=== PATIENT | male | born 1970 | race Caucasian/White ===

== ENCOUNTER → 2016-03-29 | Outpatient (CLI) | payer OTHER ==
[~2016-03-29] MED LIST: DOXA4TAB PO; DPKSR/500 PO; GLC500 PO; HYDR12.56 PO; IBUP-1050 PO; LSN20 PO; LURA1TAB PO; LURA40TA PO; METO50TA16 PO; NRV/10 PO; OMEP40CA41 PO; ONDA4TAB9 PO; OXYC-164 PO; OXYC20TA50 PO; PERCOCET PO
== END | disposition home or self-care (01) ==
LOC: C.RDSM 15:17
PROVIDERS: ATTEND Orthopaedic Surgery Sports Medicine
DX: M25.511 Pain in right shoulder (principal)

== ENCOUNTER → 2016-04-05 | Outpatient (CLI) | payer OTHER ==
--- NOTE | 2016-04-05 19:20 | DIAGNOSTIC IMAGING REPORT ---
MRI THE RIGHT SHOULDER NO CONTRAST CLINICAL HISTORY: Right shoulder pain. History of labral and rotator cuff tear. COMPARISON STUDY: Conventional radiographic study dated 03/29/2016 FINDINGS: Imaging was performed in sagittal coronal and axial planes. There are no findings to indicate occult fracture or bone bruise. There are no findings to indicate rotator cuff tear. There is no tendinous retraction. The bicipital tendon appears intact. There is abnormal signal within the anterior superior glenoid labrum. It is not possible to determine whether this relates to prior surgical repair or a recurrent tear. There are minor degenerative changes within the chromic clavicular joint IMPRESSION: 1. No evidence of full-thickness rotator cuff tear. No evidence of tendinous retraction 2. Normal bicipital tendon 3. Abnormal appearance of the anterior and superior glenoid labrum. It is not possible to determine whether this relates to prior surgical repair or whether this represents a recurrent tear Electronically signed by: Frank Garces M.D. 04/05/2016 7:19 PM Dictated Date/Time: 04/05/2016 7:15 PM
== END | disposition home or self-care (01) ==
LOC: C.MRI 17:30
PROVIDERS: ATTEND Orthopaedic Surgery Sports Medicine
DX: M25.511 Pain in right shoulder (principal)

== ENCOUNTER 2016-06-06 05:16 | Day surgery (SDC) | payer OTHER ==
[2016-05-11 15:24] VITALS: BMI 37.0
--- NOTE | 2016-05-11 16:01 | PAT Medication Instructions ---
Service Date May 11, 2016. Current Home Medication List Amlodipine Besylate (Amlodipine Besylate), 10 MG PO QAM Divalproex Sodium (Depakote Etended-Release), 1,500 MG PO HS Doxazosin Mesylate (Doxazosin Mesylate), 4 MG PO QPM Hydrochlorothiazide (Hctz), 12.5 MG PO QAM Ibuprofen (Advil), 800 MG PO PRN Lisinopril (Lisinopril), 20 MG PO HS Lurasidone Hcl (Latuda), 20 MG PO HS Metformin HCl (Metformin HCl), 500 MG PO BIDM Metoprolol Tartrate (Lopressor) (Lopressor), 50 MG PO BID Omeprazole (Prilosec), 40 MG PO QPM Ondansetron (Ondansetron HCl), 4 MG PO Q8 PRN for Nausea Oxycodone Hcl (Oxycontin), 1 TAB PO BID [Percocet], 10 MG PO 5XDAY Medication Instructions For Your Scheduled Surgery Ibuprofen (Advil), 800 MG PO PRN (patient will check with surgeon for instructions) - Hold the following medications 48 hours prior to surgery: Metformin HCl (Metformin HCl), 500 MG PO BID .- Hold the following medications evening prior to surgery: Lisinopril (Lisinopril), 20 MG PO HS - Hold the following medications the morning of surgery: Hydrochlorothiazide (Hctz), 12.5 MG PO QAM - Take the following medications the morning of surgery with a sip of water: Oxycodone Hcl (Oxycontin), 1 TAB PO BID (can take up to four hours prior to surgery if needed) Percocet 10 MG PO 5XDAY (can take up to four hours prior to surgery if needed ) Metoprolol Tartrate (Lopressor) (Lopressor), 50 MG PO BID Ondansetron (Ondansetron HCl), 4 MG PO Q8 PRN for Nausea (only if needed) Amlodipine Besylate (Amlodipine Besylate), 10 MG PO QAM - Take the following medications as scheduled the night before surgery: Oxycodone Hcl (Oxycontin), 1 TAB PO BID Percocet 10 MG PO 5XDAY Omeprazole (Prilosec), 40 MG PO QPM Metoprolol Tartrate (Lopressor) (Lopressor), 50 MG PO BID Lurasidone Hcl (Latuda), 20 MG PO HS Doxazosin Mesylate (Doxazosin Mesylate), 4 MG PO QPM Divalproex Sodium (Depakote Etended-Release), 1,500 MG PO HS If you have any questions please call us at [phone] or [phone] ( [place]) or [phone]
--- NOTE | 2016-05-11 16:21 | DIAGNOSTIC IMAGING REPORT ---
TWO VIEW CHEST CLINICAL HISTORY: Preoperative examination. FINDINGS: PA and lateral chest radiographs are compared to study dated 05/13/2014. The examination is degraded by large body habitus. The cardiomediastinal silhouette is unremarkable. There are low lung volumes with bibasilar atelectasis. The lungs and pleural spaces are otherwise clear. There is no pneumothorax. The bony thorax appears intact. IMPRESSION: No active disease in the chest. Electronically signed by: Tonio Rodriguez M.D. 05/11/2016 4:20 PM Dictated Date/Time: 05/11/2016 4:19 PM
[2016-05-11 16:29] LABS: BASO % 0.6 %; BASO ABS # 0.04 K/uL (0-0.2); COMPLETE YES; EOS % 2.2 %; HEMATOCRIT 37.1 % (42-52); IG% 0.2 %; LYMPH % 32.2 %; LYMPH ABS # 2.02 K/uL (1.2-3.4); MEAN CELL VOLUME 84.7 fL (80-100); MEAN CORPUSCULAR HEMOGLOBIN 29.2 pg (25-34); MEAN CORPUSCULAR HGB CONC 34.5 g/dl (32-36); MEAN PLATELET VOLUME 10.1 fL (7.4-10.4); MONO % 11.8 %; PLATELET COUNT 189 K/uL (130-400); RED BLOOD COUNT 4.38 M/uL (4.7-6.1); WHITE BLOOD COUNT 6.28 K/uL (4.8-10.8)
[2016-05-11 16:39] LABS: PARTIAL THROMBOPLASTIN RATIO 0.9; PROTHROMBIN TIME (PATIENT) 10.4 SECONDS (9.0-12.0)
[2016-05-11 16:51] LABS: BUN/CREATININE RATIO 15.1 (10-20); CALCIUM 8.4 mg/dl (8.5-10.1); CREATININE 1.1 mg/dl (0.60-1.40); POTASSIUM 4.5 mmol/L (3.5-5.1)
--- NOTE | 2016-05-11 17:11 | HISTORY & PHYSICAL EXAMINATION ---
DATE OF ADMISSION: 06/06/2016 CHIEF COMPLAINT: Right shoulder pain. HISTORY OF PRESENT ILLNESS: Andre is a 45-year-old male patient of Dr. Walter from [facility] with right shoulder pain that has failed conservative management. He admits to pain with any type of use. His pain has been longstanding without any obvious injury. The patient was a heavy laborer powerhouse at one point, now works at a desk job. Rates his pain 4/10, worse at 8:10. He denies numbness or tingling distally. PAST MEDICAL HISTORY: 1. Hypertension. 2. Anxiety. 3. GERD. 4. Obesity. 5. History of kidney stones. PAST SURGICAL HISTORY: 1. Right foot plantar fascial release. 2. Left shoulder arthroscopy x2. 3. Vasectomy. 4. Kidney stone removal. SOCIAL HISTORY: The patient lives at home and lives with his in a safe environment. Denies any alcohol, tobacco or illegal drug use. FAMILY HISTORY: Noncontributory. MEDICATIONS: 1. Mobic 15 mg tab daily. 2. OxyContin 20 mg tab daily. 3. Oxycodone 10 mg tab 4-5 times daily. 4. Hydrochlorothiazide 12.5 mg tab daily. 5. Latuda 20 mg tab at bedtime. 6. Metoprolol 50 mg tab twice daily. 7. Lisinopril 20 mg tab daily. 8. Amlodipine 5 mg tab daily. 9. Omeprazole 40 mg tab daily. 10. Depakote ER 500 mg tab 4 tabs at bedtime. 11. Ativan 1 mg tab as needed for imaging studies. ALLERGIES: HYDROCHLOROTHIAZIDE. REVIEW OF SYSTEMS: The patient denies headache, chest pain, shortness of breath, fevers, chills or night sweats. PHYSICAL EXAMINATION: GENERAL: The patient is alert and oriented x3 male, pleasant, appears his currently stated age, in no acute distress, here today by himself. CARDIAC: Regular rate and rhythm. S1 greater than S2. No murmurs, rubs or gallops. RESPIRATORY: Lungs are clear to auscultation bilaterally all lung guerra. No rales, rhonchi or wheezing. GASTROINTESTINAL: Abdomen is soft, nontender, nondistended. Normoactive bowel sounds all 4 quadrants. SKIN: Exam of the patient's right shoulder does not reveal any erythema, ecchymosis, abrasions, lacerations or skin breakdown. NEUROVASCULAR: The right upper extremity distally pulses +2. Capillary refill under 2 seconds. Good sensation with light touch. Fingers freely mobile. +5 insurance agency manager strength. MUSCULOSKELETAL: The right shoulder forward elevation and adduction 170 degrees, has pain greater than 120 degrees. The patient is able to externally rotate 45 degrees and internal rotation is to his buttock. Provocative testing of the right shoulder reveals a positive Neer, positive [place]una[place], positive cross arm, positive [place]'s, pain with a Jobes test. The patient is tender when palpating along the long head of biceps and also his AC joint. His elbow is atraumatic. IMPRESSION: Right shoulder labral tear, acromioclavicular joint osteoarthritis and long head biceps tendinosis. PLAN: Andre will undergo a right shoulder arthroscopy, labral and rotator cuff repair versus debridement, subacromial decompression, biceps tenotomy, open distal clavicle excision and exam under anesthesia scheduled for 06/06/2016 at the [facility] to be performed by Dr. Castaneda. Andre has a preadmission testing appointment on 05/11/2016 at the [facility] in regards to postoperative pain control. The patient has already obtained PCP clearance through his family provider, Dr. Shanelle Magaña. He will obtain preoperative EKG, CBC, electrolytes, BUN, creatinine, PT/INR. The patient utilizes pain management and reports that they will be in charge of providing him with his postoperative narcotics for pain control which will most likely need to be increased. Andre is going to do physical therapy at [facility] in [place] and order has been provided. He will follow up with Dr. Castaneda 2 weeks after surgery for suture removal and postoperative check. Any other questions or concerns, notify [facility] at [phone].
[~2016-06-06] VITALS: Ht 180.3 cm; Wt 122.6 kg
[~2016-06-06 05:16] MED LIST changes: -LURA1TAB PO; -OXYC-164 PO
[2016-06-06 05:47] VITALS: BP 123/85; PULSE 74; TEMP 36.9; O2SAT 94; Ht 180.3 cm; Wt 122.6 kg
[2016-06-06] MEDS ORDERED: LACTATED RINGER'S 1000ML 500 ML IV ONE (06:00)
[2016-06-06] MEDS ORDERED: LACTATED RINGER'S 1000ML 1,000 ML IV SCH ×2 (06:00→07:00)
[2016-06-06] MEDS ORDERED: CEFAZOLIN 3000 MG/65 ML D5W 65 ML IV SCH (06:00)
[2016-06-06] MEDS ORDERED: ROPIVACAINE 0.5% 5 MG/ML 30 ML VIAL ONE (06:32)
[2016-06-06] MEDS ORDERED: FENTANYL CITRATE INJ 50 MCG/1 ML 2 ML VIAL ONE ×2 (06:36→09:05)
[2016-06-06] MEDS ORDERED: MIDAZOLAM HCL 1 MG/ML 2ML VIAL ONE (06:37)
--- NOTE | 2016-06-06 06:43 | History & Physical Bridge Note ---
H&P Re-Evaluation Bridge Note: I have examined the patient, reviewed the History & Physical and in the interval since the performance of the History & Physical I have noted the following changes of clinical significance: No changes noted
[2016-06-06] MEDS ORDERED: SODIUM CHLORIDE 0.9% PF 50 ML VIAL ONE (06:45)
[2016-06-06] MEDS ORDERED: LIDOCAINE/EPINEPHRINE 1% 20 ML VIAL ONE (06:45)
[2016-06-06] MEDS ORDERED: BUPIVACAINE 0.5 % 5 MG/1 ML MPF 30ML VIAL ONE (06:46)
--- NOTE | 2016-06-06 08:36 | [facility] Post Operative Brief Note ---
Immediate Operative Summary Operative Date Jun 06, 2016. Pre-Operative Diagnosis Right shoulder labral tear, acromioclavicular joint osteoarthritis, and long head biceps tendinosis. Post-Operative Diagnosis Right shoulder labral tear, acromioclavicular joint osteoarthritis and long head biceps tendinosis Procedure(s) Performed Right Shoulder Arthroscopy, Labral/Rotator Cuff Debridement, Subacromial Decompression, Biceps Tenotomy, Open Distal Clavicle Excision Surgeon Dr. Alvarez Castaneda Roller Mill Tender Surgeon(s) Jona Wood - fellow Estimated Blood Loss 5 Findings same Specimens right distal clavicle Drains none Anesthesia general, block Complication(s) None Disposition Recovery Room / PACU
[2016-06-06] MEDS ORDERED: SODIUM CHLORIDE 0.9% 1000ML 1,000 ML IV SCH (08:39)
--- NOTE | 2016-06-06 08:39 | Discharge Instructions ---
Discharge Instructions Date of Service Jun 06, 2016. Admission Reason for Admission: Right Shoulder Labral Tear, Acromioclavicular Join Discharge Discharge Diagnosis / Problem: s/p Right shoulder arthroscopy, rotator cuff and labral debridement Discharge Goals Goal(s): Decrease discomfort, Improve function, Increase independence Activity Recommendations Activity Limitations: as noted below Lifting Limitations: gradually increase as tolerated Exercise/Sports Limitations: none May Resume Sexual Activity: when tolerated Shower/Bathe: keep incision dry Driving or Machine Use: when cleared by Dr. Castaneda . Instructions / Follow-Up Instructions / Follow-Up DIET: * Resume previous diet. MEDICATIONS: * Please take your prescriptions as instructed at your pre-op appointment and/ or see medication discharge instructions listed above. * If concerns develop, call your physician's office at . SPECIAL CARE INSTRUCTIONS: * Ice/Elevate as instructed. * Keep dressing clean, dry, intact. * Your surgical extremity may be discolored due to prepping agents used on the skin. A bluish-green tint is a normal variant and should not cause alarm. Call your doctor at [phone] if: * Temperature above 101 degrees * Pain not relieved by pain medicine ordered * There is increased drainage or redness from any incision * You have any unanswered questions, problems or concerns. FOLLOW UP VISIT: * If not already scheduled, please call the office at to schedule a follow-up appointment. Current Hospital Diet Patient's current hospital diet: Discharge Diet Recommended Diet: Regular Diet Procedures Procedures Performed: Right Shoulder Arthroscopy, Labral/Rotator Cuff Debridement, Subacromial Decompression, Biceps Tenotomy, Open Distal Clavicle Excision Pending Studies Studies pending at discharge: yes List of pending studies: right distal clavicle specimen Medical Emergencies . Who to Call and When: Medical Emergencies: If at any time you feel your situation is an emergency, please call [phone] immediately. . Non-Emergent Contact Non-Emergency issues call your: Primary Care Provider . "Provider Documentation" section prepared by Zeyad Muller. VTE Core Measure Inpt VTE Proph given/why not?: Emily Zamarripa PA Drug Monitoring Program Search Results: no issues identified
[2016-06-06] MEDS ORDERED: OXYCODONE/ACETAMINOPHEN 5-325 TAB PO PRN (08:45)
[2016-06-06] MEDS ORDERED: MoRPHine SULFATE 4 MG/ML 1 ML CARP\\VIAL IV PRN (08:45)
[2016-06-06] MEDS ORDERED: ONDANSETRON INJ 2 MG/ML 2 ML VIAL IV PRN ×2 (08:45→09:15)
[2016-06-06] MEDS ORDERED: METOCLOPRAMIDE HCL INJ 5 MG/ML 2 ML VIAL IV PRN (08:45)
[2016-06-06] MEDS ORDERED: DEXAMETHASONE SOD INJ 4 MG/ML VIAL ONE (09:00)
[2016-06-06] MEDS ORDERED: NEOSTIGMINE METHYLSULFATE 5 MG/5 ML SYR ONE (09:00)
[2016-06-06] MEDS ORDERED: ROCURONIUM BROMIDE 10 MG/ML 5 ML VIAL ONE (09:00)
[2016-06-06] MEDS ORDERED: GLYCOPYRROLATE INJ 0.2 MG/ML VIAL ONE (09:00)
[2016-06-06] MEDS ORDERED: ONDANSETRON INJ 2 MG/ML 2 ML VIAL ONE (09:00)
[2016-06-06] MEDS ORDERED: PROPOFOL IV EMULSION 10 MG/ML 20 ML VIAL IV ONE (09:00)
[2016-06-06] MEDS ORDERED: FENTANYL CITRATE INJ 50 MCG/1 ML 2 ML VIAL IV PRN (09:15)
[2016-06-06] MEDS ORDERED: ATROPINE SULFATE 0.1 MG/ML 5ML SYR IV PRN (09:15)
[2016-06-06] MEDS ORDERED: EpHEDrine SULFATE INJ 50 MG/ML AMP IV PRN (09:15)
--- NOTE | 2016-06-06 09:30 | [facility] Operative Report ---
Operative Report Operative Date Jun 06, 2016. Pre-Operative Diagnosis Right shoulder labral tear, acromioclavicular joint osteoarthritis, and long head biceps tendinosis. Post-Operative Diagnosis Same + Rotator cuff partial articular sided tear & Impingement. Procedure(s) Performed 1) Right shoulder arthroscopy, extensive debridement: labrum (SLAP, Anterior & posterior) and rotator cuff. 2) Open distal clavicle excision. 3) Arthroscopic subacromial decompression. 4) Long head of the biceps tenotomy. 5) Exam Under Anesthesia. Surgeon Dr. Alvarez Castaneda Remote Broadcast Engineer Surgeon(s) Jona Wood - fellow Estimated Blood Loss 5ML Findings The Right shoulder was then examined under anesthesia and it exhibited: Forward flexion and abduction to 170; external rotation 95; internal rotation 60. There was no noted instability. Posterior and anterior translation was 1+ and they had no sulcus sign and was symmetric to their other side. The diagnostic arthroscopy commenced with the following findings: 1. The biceps anchor showed evidence of a SLAP tear, type I. There was a labral sling around the biceps posteriorly. With traction on the biceps there was movement of the superior and anterior labrum. 2. The anterior labrum showed fraying from 1:00 to 3:00 position. 3. The inferior labrum was intact. 4. The inferior pouch showed no loose bodies. 5. The posterior labrum had fraying from 10:00 to 11:00. 6. The articular surface of the glenoid was intact. 7. The articular surface of humeral head was intact. 8. The long Head of the Biceps was intact, again with traction on the biceps there was movement of the superior and anterior labrum. 9. The Subscapularis tendon was intact. 10. The Supraspinatus tendon had partial thickness articular sided fraying, the footprint was otherwise intact. 11. The Infraspinatus and Teres Minor were intact. 12. The Subacromial space showed some bursitis and small bony spur. 13. AC jt showed degenerative changes the distal end of the clavicle. Fluids 1200 Specimens right distal clavicle Drains none Anesthesia general, interscalene nerve block Complication(s) None Disposition Recovery Room / PACU Indications This is a pleasant 45-year-old male who has been having long-standing right shoulder pain that has failed conservative management. They have MRI and clinical findings suggestive of labral tears, impingement, and AC joint OA. After a lengthy discussion regarding their options of conservative versus operative management, they have elected to proceed with surgery. The risks of surgery were discussed and include but not limited to: Infection, bleeding, nerve damage, continued pain, progression of arthritis, stiffness, decreased level of activity, and deep vein thrombosis. The patient understood all of their options and the risks of surgery and would like to proceed. The informed consent was signed. Description of Procedure The patient was taken to the operating room and following administration of her interscalene nerve block and general anesthetic, a multidisciplinary time-out was performed identifying my initials on the right shoulder as the correct and operative limb. The patient was then placed in beach chair position with all of their bony prominences well-padded. They were then prepped and draped in the usual orthopedic sterile fashion. All of the bony landmarks were marked as well as the planned incisions. The planned incisions were injected with a 50:50 mixture of 0.5% Marcaine plain and 1% Lidocaine with Epinephrine for a total of 8 cc. Then using a spinal needle which was placed intra-articularly into the glenohumeral joint and insufflated to 35 cc and there was noted appropriate back flow, an additional 15 cc were placed. The standard posterior portal was made with an 11-blade. Trocar was introduced into the glenohumeral joint in the standard fashion. Using a spinal needle, the anterior portal was placed lateral to the coracoid under direct visualization between the Long Head of the Biceps and Subscapularis. A 7mm cannula was then placed. The intra-articular portion of shoulder was addressed first with debriding any fraying from the labrum, subscapularis and supraspinatus tear. These were probed and found to be intact. The arthroscope had also been removed from the posterior portal and placed anteriorly for better posterior visualization. Additional debridement of the posterior labrum and rotator cuff was also performed again back to a stable rim. He was felt that the biceps traction on the labral complex would be a source of pain and a biceps tenotomy was performed. The arthroscope was then placed subacromially. There was bursitis noted. A lateral portal was created under direct visualization with a spinal needle. Once the bursitis was removed, the bursal side of the rotator cuff was intact. There was a small bony spur. Using the 5 mm barrel-shaped bur, a 5 mm subacromial decompression was performed. All of the instruments were removed. Our attention was drawn to the AC joint and making a 3 cm incision in-line with the anterior portal incision was made and carried down to the Superior AC joint ligament. A longitudinal incision was made in-line with the fibers of the superior AC joint ligament. The posterior and anterior aspect of the clavicle was exposed and using a sagittal saw the distal 7 mm was removed. A rasp was used to smooth out the edges. The wound was copiously irrigated. Bone wax was placed along the exposed bone. There was adequate space. The Superior AC joint ligament was closed with 0 Vicryl. The subcutaneous layer was closed with 3-0 Vicryl. The skin was closed with a running subcuticular stitch using 3-0 Prolene. Steri strips were placed over top. The portal sites were closed with 3-0 Prolene in a standard fashion. Xeroform was placed overtop followed by 4 x 4's, ABDs, and foam tape. The patient was placed in a sling. The sponge and needle counts were correct. POSTOPERATIVE INSTRUCTIONS: The patient will follow-up with physical therapy in two days. The patient will wear sling out in public and for comfort only. The patient will follow-up with me in 10 to 15 days. I attest to the content of the Intraoperative Record and any orders documented therein. Any exceptions are noted below.
[2016-06-06 10:15] VITALS: BP 121/67; PULSE 76; TEMP 36.1; O2SAT 93
--- NOTE | 2016-06-06 10:58 | Anesthesiology Progress Note ---
Anesthesia Post Op Note Date & Time Jun 06, 2016 at 10:58 Vital Signs Pain Intensity: 0 Vital Signs Past 12 Hours Date Time Temp Pulse Resp B/P Pulse Ox O2 Delivery O2 Flow Rate FiO2 06/06/16 10:15 36.1 76 26 121/67 93 Nasal Cannula 3 06/06/16 10:05 68 25 105/68 91 Nasal Cannula 3 06/06/16 09:55 65 21 100/60 99 Mask 10 06/06/16 09:45 61 25 105/65 99 Mask 10 06/06/16 09:38 36.0 58 16 110/73 99 Mask 10 06/06/16 05:47 36.9 74 18 123/85 94 Room Air Notes Mental Status: alert / awake / arousable, participated in evaluation Pt Amnestic to Procedure: Yes Nausea / Vomiting: adequately controlled Pain: adequately controlled Airway Patency, RR, SpO2: stable & adequate BP & HR: stable & adequate Hydration State: stable & adequate Anesthetic Complications: no major complications apparent
== END 2016-06-06 11:50 | disposition home or self-care (01) ==
LOC: C.ACU 05:16
PROVIDERS: ATTEND Orthopaedic Surgery Sports Medicine
DX: M75.111 Incomplete rotator cuff tear or rupture of right shoulder, not specified as traumatic (principal); S46.801A Unspecified injury of other muscles, fascia and tendons at shoulder and upper arm level, right arm, initial encounter; M19.011 Primary osteoarthritis, right shoulder; M77.9 Enthesopathy, unspecified; Z79.899 Other long term (current) drug therapy; Z79.84 Long term (current) use of oral hypoglycemic drugs; X58.XXXA Exposure to other specified factors, initial encounter

== ENCOUNTER 2017-04-02 18:37 | Emergency (ER) | payer OTHER ==
[~2017-04-02] VITALS: Ht 180.3 cm; Wt 120.4 kg
[2017-04-02 19:25] VITALS: Ht 180.3 cm; Wt 120.4 kg
[2017-04-02] MEDS ORDERED: DiphenhydrAMINE HCL 50 MG/ML VIAL IV STA (20:30)
[2017-04-02] MEDS ORDERED: DEXAMETHASONE SOD INJ 4 MG/ML VIAL IV STA (20:30)
[2017-04-02] MEDS ORDERED: KETOROLAC TROMETHAMINE 30 MG/ML VIAL IV STA (20:30)
[2017-04-02] MEDS ORDERED: PROCHLORPERAZINE 5 MG/ML 2 ML VIAL IV STA (20:30)
[2017-04-02] MEDS ORDERED: SODIUM CHLORIDE 0.9% 1000ML 1,000 ML IV STA (20:30)
[2017-04-02] MEDS ORDERED: HYDROmorphone INJ 1 MG/ML SYR IV STA ×2 (20:36→22:51)
[2017-04-02 21:16] LABS: BASO % 0.4 %; BASO ABS # 0.03 K/uL (0-0.2); EOS % 1.5 %; HEMATOCRIT 39.8 % (42-52); HEMOGLOBIN 13.7 g/dL (14.0-18.0); IG# 0.02 K/uL (0.00-0.02); LYMPH % 32.3 %; LYMPH ABS # 2.18 K/uL (1.2-3.4); MEAN CELL VOLUME 84.9 fL (80-100); MEAN CORPUSCULAR HEMOGLOBIN 29.2 pg (25-34); MEAN CORPUSCULAR HGB CONC 34.4 g/dl (32-36); MEAN PLATELET VOLUME 10.1 fL (7.4-10.4); MONO % 12.3 %; MONO ABS # 0.83 K/uL (0.11-0.59); NEUT % 53.2 %; NEUT ABS # 3.58 K/uL (1.4-6.5); PLATELET COUNT 179 K/uL (130-400); RED CELL DISTRIBUTION WIDTH CV 13.2 % (11.5-14.5); RED CELL DISTRIBUTION WIDTH SD 40.7 fL (36.4-46.3); WHITE BLOOD COUNT 6.74 K/uL (4.8-10.8)
[2017-04-02 21:36] LABS: CALCIUM 8.8 mg/dl (8.5-10.1); CREATININE 0.92 mg/dl (0.60-1.40)
--- NOTE | 2017-04-02 21:43 | DIAGNOSTIC IMAGING REPORT ---
CT HEAD WITHOUT CONTRAST (CT) CLINICAL HISTORY: Headache, hypertension COMPARISON STUDY: 12/16/2013 TECHNIQUE: Axial CT of the brain is performed from the vertex to the skull base. IV contrast was not administered for this examination. A dose lowering technique was utilized adhering to the principles of ALARA. CT DOSE: 614.27 mGy.cm FINDINGS: No intra or extra-axial mass lesions are visualized. There is no CT evidence of acute cortical infarction. There is no evidence of midline shift. There is no acute hemorrhage. No calvarial fractures are visualized. There is no evidence of pathologic ventricular dilatation. There is no evidence of acute sinusitis IMPRESSION: No acute intracranial findings Electronically signed by: Frank Garces M.D. 04/02/2017 9:42 PM Dictated Date/Time: 04/02/2017 9:41 PM
[2017-04-02] MEDS ORDERED: LISINOPRIL 20 MG TAB PO STA (22:51)
[2017-04-02] MEDS ORDERED: METOPROLOL TARTRATE 50 MG TAB PO STA (22:51)
[2017-04-02] MEDS ORDERED: CRD4 PO (23:32)
[2017-04-03 00:35] VITALS: BP 160/90; PULSE 60; TEMP 36.5; O2SAT 96
--- NOTE | 2017-04-03 03:05 | EMERGENCY ROOM VISIT NOTE ---
History Report prepared by Coco: Ezequiel Edgar Under the Supervision of: Dr. Mina Emanuel M.D. First contact with patient: 20:19 Chief Complaint: HEADACHE Stated Complaint: SEVERE HEADACHE, NECK STIFFNESS, LIGHT SENSITIVITY History of Present Illness The patient is a 46 year old male who presents to the Emergency Room with complaints of a constant headache that began yesterday. He rates his discomfort as an 8/10 in severity. The patient states that his headache is worsened with light and relieved with laying down. The patient states that the pain is located in his entire head. He reports that he has also been experiencing neck stiffness and nausea since yesterday. He states that he took his blood pressure last night, which was 187/96. The patient states that he took extra Lisinopril without any relief. The patient states that he has a history of headaches, which he sees a neurologist for. He states that she tried to give him migraine medications and had a spinal tap done. The patient states that the spinal tap in 2016 was normal. He reports he also has a history of three shoulder surgeries. The patient denies trauma, LOC, fevers, chills, diaphoresis, visual changes, chest pain, breathing difficulties, vomiting, abdominal pain, back pain , melena, hematochezia, urinary symptoms, numbness, weakness, lymphadenopathy, rash, or other complaints. Source of History: patient Onset: yesterday Position: head Symptom Intensity: 8/10 Quality: ache Timing: constant Modifying Factors (Worsening): other (light) Modifying Factors (Relieving): other (laying down) Associated Symptoms: + neck pain (stiffness), + nausea Review of Systems See HPI for pertinent positives and negatives. A total of ten systems were reviewed and were otherwise negative. Past Medical & Surgical Medical Problems: (1) Anxiety disorder (2) Bipol I, Most Recent Episode (Or Current) Unspecified (3) Bipolar disorder (4) Diabetes (5) GERD (gastroesophageal reflux disease) (6) HTN (hypertension) Surgical Problems: (1) Status post labral repair of shoulder Family History Cancer Gallbladder disease Hypertension Kidney disease Kidney stones Social History Smoking Status: Never Smoker Alcohol Use: none Marital Status: Housing Status: lives with family Occupation Status: employed Current/Historical Medications Scheduled Divalproex Sodium (Depakote Etended-Release), 1,500 MG PO HS Doxazosin Mesylate (Doxazosin Mesylate), 4 MG PO QPM Lisinopril (Lisinopril), 20 MG PO HS Lurasidone Hcl (Latuda), 20 MG PO HS Metformin HCl (Metformin HCl), 500 MG PO BIDM Metoprolol Tartrate (Lopressor) (Lopressor), 50 MG PO BID Omeprazole (Prilosec), 40 MG PO QPM Oxycodone Hcl (Oxycontin), 1 TAB PO BID Scheduled PRN Ondansetron (Ondansetron HCl), 4 MG PO Q8 PRN for Nausea Allergies Coded Allergies: Bupropion (Verified Allergy, Unknown, headache, 04/02/17) Gemfibrozil (Verified Allergy, Unknown, decreased kidney function, muscle aches, 04/02/17) pt Physical Exam Vital Signs Date Time Temp Pulse Resp B/P (MAP) Pulse Ox O2 Delivery O2 Flow Rate FiO2 04/03/17 00:35 36.5 60 16 160/90 96 Room Air 04/02/17 23:40 36.6 65 16 171/113 96 Room Air 04/02/17 22:41 61 175/113 96 Room Air 04/02/17 22:02 67 16 175/104 97 Room Air 04/02/17 19:25 36.8 92 20 185/93 97 Room Air Physical Exam GENERAL: Awake, alert, uncomfortable appearing, no distress HENT: Normocephalic, atraumatic. TM's normal. Oropharynx unremarkable. EYES: PERRL. EOMI. Normal conjunctiva. Sclera non-icteric. NECK: Supple. No nuchal rigidity. FROM. No JVD or bruit. RESPIRATORY: CTA CARDIAC: RRR. No murmur. ABDOMEN: Soft, non distended. No tenderness to palpation. No rebound or guarding. No masses. RECTAL: Deferred. MUSCULOSKELETAL: Unremarkable. Trace lower extremity edema. No discoloration. Gross motor strength symmetric. NEURO: Cranial nerves 2-12 grossly intact. Normal sensorium. No sensory or motor deficits noted. Speech normal. No pronator drift. SKIN: No rash or jaundice noted. LYMPH: No adenopathy. Medical Decision & Procedures ER Provider Diagnostic Interpretation: Radiology results as stated below per my review and radiologist interpretation CT HEAD WITHOUT CONTRAST (CT) CLINICAL HISTORY: Headache, hypertension COMPARISON STUDY: 12/16/2013 TECHNIQUE: Axial CT of the brain is performed from the vertex to the skull base. IV contrast was not administered for this examination. A dose lowering technique was utilized adhering to the principles of ALARA. CT DOSE: 614.27 mGy.cm FINDINGS: No intra or extra-axial mass lesions are visualized. There is no CT evidence of acute cortical infarction. There is no evidence of midline shift. There is no acute hemorrhage. No calvarial fractures are visualized. There is no evidence of pathologic ventricular dilatation. There is no evidence of acute sinusitis IMPRESSION: No acute intracranial findings Electronically signed by: Frank Garces M.D. 04/02/2017 9:42 PM Dictated Date/Time: 04/02/2017 9:41 PM Laboratory Results 04/02/17 21:06 Red Blood Count 4.69, Mean Corpuscular Volume 84.9, Mean Corpuscular Hemoglobin 29.2, Mean Corpuscular Hemoglobin Concent 34.4, Mean Platelet Volume 10.1, Neutrophils (%) (Auto) 53.2, Lymphocytes (%) (Auto) 32.3, Monocytes (%) (Auto) 12.3, Eosinophils (%) (Auto) 1.5, Basophils (%) (Auto) 0.4, Neutrophils # (Auto ) 3.58, Lymphocytes # (Auto) 2.18, Monocytes # (Auto) 0.83, Eosinophils # (Auto ) 0.10, Basophils # (Auto) 0.03 04/02/17 21:06 Test 04/02/17 21:06 White Blood Count 6.74 K/uL (4.8-10.8) Red Blood Count 4.69 M/uL (4.7-6.1) Hemoglobin 13.7 g/dL (14.0-18.0) Hematocrit 39.8 % (42-52) Mean Corpuscular Volume 84.9 fL (80-100) Mean Corpuscular Hemoglobin 29.2 pg (25-34) Mean Corpuscular Hemoglobin Concent 34.4 g/dl (32-36) Platelet Count 179 K/uL (130-400) Mean Platelet Volume 10.1 fL (7.4-10.4) Neutrophils (%) (Auto) 53.2 % Lymphocytes (%) (Auto) 32.3 % Monocytes (%) (Auto) 12.3 % Eosinophils (%) (Auto) 1.5 % Basophils (%) (Auto) 0.4 % Neutrophils # (Auto) 3.58 K/uL (1.4-6.5) Lymphocytes # (Auto) 2.18 K/uL (1.2-3.4) Monocytes # (Auto) 0.83 K/uL (0.11-0.59) Eosinophils # (Auto) 0.10 K/uL (0-0.5) Basophils # (Auto) 0.03 K/uL (0-0.2) RDW Standard Deviation 40.7 fL (36.4-46.3) RDW Coefficient of Variation 13.2 % (11.5-14.5) Immature Granulocyte % (Auto) 0.3 % Immature Granulocyte # (Auto) 0.02 K/uL (0.00-0.02) Anion Gap 8.0 mmol/L (3-11) Est Creatinine Clear Calc Drug Dose 131.0 ml/min Estimated GFR () 114.4 Estimated GFR (Non- 98.7 BUN/Creatinine Ratio 11.6 (10-20) Calcium Level 8.8 mg/dl (8.5-10.1) Lyme Disease IgG Antibody NEG (NEG) Lyme Disease IgM Antibody NEG (NEG) Laboratory results reviewed by me Medications Administered Medications (Trade) Dose Ordered Sig/Muna Route Start Time Stop Time Status Last Admin Dose Admin Prochlorperazine Edisylate (Compazine Inj) 10 mg NOW STAT IV 04/02/17 20:30 04/02/17 20:34 DC 04/02/17 21:06 10 MG Sodium Chloride 1,000 ml @ 999 mls/hr Q1H1M STAT IV 04/02/17 20:30 04/02/17 21:30 DC 04/02/17 21:05 999 MLS/HR Ketorolac Tromethamine (Toradol Inj) 10 mg NOW STAT IV 04/02/17 20:30 04/02/17 20:34 DC 04/02/17 21:04 10 MG Dexamethasone Sodium Phosphate (Decadron Inj) 10 mg NOW STAT IV 04/02/17 20:30 04/02/17 20:34 DC 04/02/17 21:03 10 MG Diphenhydramine HCl (Benadryl Inj) 25 mg NOW STAT IV 04/02/17 20:30 04/02/17 20:34 DC 04/02/17 21:04 25 MG Hydromorphone HCl (Dilaudid Inj) 1 mg NOW STAT IV 04/02/17 20:36 04/02/17 20:37 DC 04/02/17 21:11 1 MG Hydromorphone HCl (Dilaudid Inj) 1 mg NOW STAT IV 04/02/17 22:51 04/02/17 22:53 DC 04/02/17 23:00 1 MG Metoprolol Tartrate (Lopressor Tab) 50 mg NOW STAT PO 04/02/17 22:51 04/02/17 22:53 DC 04/02/17 23:00 50 MG Lisinopril (Zestril Tab) 20 mg NOW STAT PO 04/02/17 22:51 04/02/17 22:53 DC 04/02/17 23:21 20 MG ECG Indication: other (headache) Rate (beats per minute): 68 Rhythm: normal sinus Findings: no acute ischemic change, no ectopy ED Course 2027: The patient was evaluated in room B10. A complete history and physical exam was performed. 2030: Ordered Benadryl Injection 25 mg IV, Decadron Injection 10 mg IV, Toradol Injection 10 mg IV, Sodium Chloride 1000 ml @ 999 mls/hr IV, Compazine Injection 10 mg IV. 2035: Ordered Dilaudid Injection 1 mg IV. 2250: Ordered Lisinopril 20 mg PO, Lopressor Tab 50 mg PO, Dilaudid Injection 1 mg IV. 2253: I reevaluated the patient and he states that it feels as if his migraine was coming back. I ordered blood pressure medication since he is due for his daily dose. 0022: I reevaluated the patient. Discussed results and discharge instructions: He verbalized understanding and agreement. The patient is ready for discharge. Medical Decision Triage Nursing notes reviewed. The patient's presentation and history were concerning for headache. Etiologies such as migraine, tumor, headache, sinus thrombosis, temporal arteritis, sinusitis, CVA, ICH, SAH, infection, hypertensive crisis, as well as others were entertained. The patient was evaluated. He had non-focal neurologic examination. He has a history of headaches. His blood pressure was elevated. This was monitored. The patient had an unremarkable workup regarding his labs and imaging. He was treated with the above medications and was feeling better. His blood pressure was still elevated and I discussed his evening medications. He was overdue for them. He was given his metoprolol and lisinopril. The patient notes he is not currently taking Norvasc. That was stopped several months ago due to his other psychiatric medications. He was given a second dose of pain medication. He felt much better. I repeated his blood pressure and it had him down. He was still hypertensive. I asked the patient to monitor his blood pressure so he could follow closely with his primary physician. He felt comfortable. I do not suspect a hypertensive crisis. I believe he was having pain and this was causing his blood pressure to be elevated and he was also overdue for his dosing. By the evaluation outlined above other emergent etiologies such as those listed in the differential, as well as others, were deemed relatively unlikely. The patient was educated about the findings as listed above. All questions were answered and the patient was pleased with the treatment. Return instructions were outlined and the patient was discharged in stable condition. The patient was referred to his PCP for follow-up for a recheck of the current condition. [place] Drug Monitoring Program Search Results: patient reviewed within database, see additional documentation Drug Monitoring Findings: On March 06, the patient received 120 tablets of 20 mg Oxycodone. Medication Reconcilliation Current Medication List: was personally reviewed by me Blood Pressure Screening Patient's blood pressure: Elevated blood pressure Blood pressure disposition: Referred to PCP Impression Primary Impression: Headache Additional Impression: HTN (hypertension) Scribe Attestation The scribe's documentation has been prepared under my direction and personally reviewed by me in its entirety. I confirm that the note above accurately reflects all work, treatment, procedures, and medical decision making performed by me. Departure Information Dispostion Home / Self-Care Referrals Shanelle Magaña M.D. (PCP) Patient Instructions My [facility] Additional Instructions HEADACHE INSTRUCTIONS: DO NOT drive, drink alcohol, operate machinery, or perform dangerous activities today. You were given medications in the ER that can affect your ability to safely function or operate a vehicle. Rest today in a quiet, peaceful, dark environment and get a full 8-10 hrs of sleep tonight. Avoid loud noises, smoke/smoking, alcohol, bright lights, stress, or physical exertion today to minimize the chance the headache may return. Continue current medications. Ibuprofen(Motrin, Advil) may be used for fever or pain. Use 600mg every six hours as needed. Take with food. Avoid using more than 2400mg in a 24 hour period. Do not use 2400mg per day for more than three consecutive days without physician direction. Prolonged inappropriate use can lead to stomach upset or ulcers. (AND/OR) Acetaminophen(Tylenol) may be used for fever or pain. Use 1000mg every six hours as needed. Avoid using more than 4000mg in a 24 hour period. Return to the ER for passing out, worsening headache, vision problems, neck stiffness/pain, fevers, vomiting, worsening of your condition, or as needed. Follow up with your primary physician in 2-3 days for a recheck of your current condition and a check of your blood pressure. Problem Qualifiers
== END 2017-04-03 00:35 | disposition home or self-care (01) ==
LOC: C.EDB 18:44
DX: R51 Headache (principal); I10 Essential (primary) hypertension; E11.9 Type 2 diabetes mellitus without complications; F41.9 Anxiety disorder, unspecified; F31.9 Bipolar disorder, unspecified; K21.9 Gastro-esophageal reflux disease without esophagitis; Z79.84 Long term (current) use of oral hypoglycemic drugs; Z82.49 Family history of ischemic heart disease and other diseases of the circulatory system; Z84.1 Family history of disorders of kidney and ureter

== ENCOUNTER → 2017-04-19 | Outpatient (CLI) | payer OTHER ==
[~2017-04-19] MED LIST changes: -HYDR12.56 PO; -IBUP-1050 PO; -NRV/10 PO; -PERCOCET PO
== END | disposition home or self-care (01) ==
LOC: C.RDSM 15:00
PROVIDERS: ATTEND Orthopaedic Surgery Sports Medicine
DX: S49.90XA Unspecified injury of shoulder and upper arm, unspecified arm, initial encounter (principal); X58.XXXA Exposure to other specified factors, initial encounter

== ENCOUNTER 2017-04-22 17:18 | Emergency (ER) | payer OTHER ==
[~2017-04-22] VITALS: Ht 181.6 cm; Wt 128.5 kg
[2017-04-22 17:20] VITALS: TEMP 36.7; Ht 181.6 cm; Wt 128.5 kg
--- NOTE | 2017-04-22 18:27 | EMERGENCY ROOM VISIT NOTE ---
History Report prepared by Coco: Elian Markham Under the Supervision of: Stephanie FarahO. First contact with patient: 17:53 Chief Complaint: LEG PAIN,LEG INJURY Stated Complaint: LOWER LEG/ANKLE SWELLING/PAIN, HEADACHE History of Present Illness The patient is a 46 year old male who presents to the Emergency Room with complaints of bilateral lower extremity pain that began two days ago. He rates his pain a 7/10 in severity. He has a past medical history of hypertension. The patient was placed onto Amlodipine 13 days ago and had his Lisinopril dose doubled as well. A couple of days ago, the patient began to have bilateral leg pain. He noticed that his legs began to swell yesterday, worse than his baseline , as well as having an associated headache. His pain is exacerbated with movement. He denies any fevers, chest pain, shortness of breath, palpitations, nausea, vomiting, or diarrhea. He is also taking Metoprolol as well. Patient denies any prior history of DVTs. No recent trauma or injury. Source of History: patient Onset: two days ago Position: leg (bilateral) Symptom Intensity: 7/10 Quality: ache Timing: constant Modifying Factors (Worsening): movement Associated Symptoms: + headache, No fevers, No chest pain, No SOB, No nausea , No vomiting, No diarrhea Note: He is experiencing bilateral leg swelling as well. Review of Systems See HPI for pertinent positives & negatives. A total of 10 systems reviewed and were otherwise negative. Past Medical & Surgical Medical Problems: (1) Anxiety disorder (2) Bipol I, Most Recent Episode (Or Current) Unspecified (3) Bipolar disorder (4) Diabetes (5) GERD (gastroesophageal reflux disease) (6) HTN (hypertension) Surgical Problems: (1) Status post labral repair of shoulder Family History Cancer Gallbladder disease Hypertension Kidney disease Kidney stones Social History Smoking Status: Never Smoker Alcohol Use: none Marital Status: Housing Status: lives with family Occupation Status: employed Current/Historical Medications Scheduled Divalproex Sodium (Depakote Etended-Release), 1,500 MG PO HS Doxazosin Mesylate (Doxazosin Mesylate), 4 MG PO QPM Lisinopril (Lisinopril), 20 MG PO HS Lurasidone Hcl (Latuda), 20 MG PO HS Metformin HCl (Metformin HCl), 500 MG PO BIDM Metoprolol Tartrate (Lopressor) (Lopressor), 50 MG PO BID Omeprazole (Prilosec), 40 MG PO QPM Oxycodone Hcl (Oxycontin), 1 TAB PO BID Scheduled PRN Ondansetron (Ondansetron HCl), 4 MG PO Q8 PRN for Nausea Allergies Coded Allergies: Bupropion (Verified Allergy, Unknown, headache, 04/22/17) Gemfibrozil (Verified Allergy, Unknown, decreased kidney function, muscle aches, 04/22/17) pt Physical Exam Vital Signs Date Time Temp Pulse Resp B/P (MAP) Pulse Ox O2 Delivery O2 Flow Rate FiO2 04/22/17 20:43 76 20 156/96 96 04/22/17 19:53 89 18 155/115 98 Room Air 04/22/17 17:20 36.7 103 18 194/93 98 Room Air Physical Exam GENERAL: alert, well appearing, well nourished, no distress, non-toxic, obese EYE EXAM: normal conjunctiva, PERRL and EOM's grossly intact OROPHARYNX: no exudate, no erythema, lips, buccal mucosa, and tongue normal and mucous membranes are moist NECK: supple, no nuchal rigidity, no adenopathy, non-tender LUNGS: Clear to auscultation. Normal chest wall mechanics HEART: no murmurs, S1 normal and S2 normal ABDOMEN: abdomen soft, non-tender, normo-active bowel sounds, no masses, no rebound or guarding. BACK: Back is symmetrical on inspection and there is no deformity, no midline tenderness, no CVA tenderness. SKIN: no rashes and no bruising UPPER EXTREMITIES: upper extremities are grossly normal. LOWER EXTREMITIES: 1+ edema bilaterally. No joint effusion. No rashes or sores. Normal pulses bilateral. NEURO EXAM: Normal sensorium, cranial nerves II-XII grossly intact, normal speech, no gross weakness of arms, no gross weakness of legs. Medical Decision & Procedures Laboratory Results 04/22/17 18:30 Red Blood Count 4.59, Mean Corpuscular Volume 85.2, Mean Corpuscular Hemoglobin 29.4, Mean Corpuscular Hemoglobin Concent 34.5, Mean Platelet Volume 9.7, Neutrophils (%) (Auto) 46.4, Lymphocytes (%) (Auto) 35.4, Monocytes (%) (Auto) 13.7, Eosinophils (%) (Auto) 3.7, Basophils (%) (Auto) 0.6, Neutrophils # (Auto ) 2.24, Lymphocytes # (Auto) 1.71, Monocytes # (Auto) 0.66, Eosinophils # (Auto ) 0.18, Basophils # (Auto) 0.03 04/22/17 18:30 Test 04/22/17 18:30 White Blood Count 4.83 K/uL (4.8-10.8) Red Blood Count 4.59 M/uL (4.7-6.1) Hemoglobin 13.5 g/dL (14.0-18.0) Hematocrit 39.1 % (42-52) Mean Corpuscular Volume 85.2 fL (80-100) Mean Corpuscular Hemoglobin 29.4 pg (25-34) Mean Corpuscular Hemoglobin Concent 34.5 g/dl (32-36) Platelet Count 197 K/uL (130-400) Mean Platelet Volume 9.7 fL (7.4-10.4) Neutrophils (%) (Auto) 46.4 % Lymphocytes (%) (Auto) 35.4 % Monocytes (%) (Auto) 13.7 % Eosinophils (%) (Auto) 3.7 % Basophils (%) (Auto) 0.6 % Neutrophils # (Auto) 2.24 K/uL (1.4-6.5) Lymphocytes # (Auto) 1.71 K/uL (1.2-3.4) Monocytes # (Auto) 0.66 K/uL (0.11-0.59) Eosinophils # (Auto) 0.18 K/uL (0-0.5) Basophils # (Auto) 0.03 K/uL (0-0.2) RDW Standard Deviation 40.1 fL (36.4-46.3) RDW Coefficient of Variation 12.8 % (11.5-14.5) Immature Granulocyte % (Auto) 0.2 % Immature Granulocyte # (Auto) 0.01 K/uL (0.00-0.02) D-Dimer 380 ug/L FEU (0-500) Anion Gap 12.0 mmol/L (3-11) Est Creatinine Clear Calc Drug Dose 141.2 ml/min Estimated GFR () 118.0 Estimated GFR (Non- 101.8 BUN/Creatinine Ratio 12.4 (10-20) Calcium Level 8.6 mg/dl (8.5-10.1) Total Bilirubin 0.3 mg/dl (0.2-1) Aspartate Amino Transf (AST/SGOT) 35 U/L (15-37) Alanine Aminotransferase (ALT/SGPT) 58 U/L (12-78) Alkaline Phosphatase 78 U/L (45-117) Pro-B-Type Natriuretic Peptide 321 pg/ml (0-450) Total Protein 6.8 gm/dl (6.4-8.2) Albumin 3.3 gm/dl (3.4-5.0) Globulin 3.5 gm/dl (2.5-4.0) Albumin/Globulin Ratio 0.9 (0.9-2) Laboratory results per my review. Medications Administered Medications (Trade) Dose Ordered Sig/Muna Route Start Time Stop Time Status Last Admin Dose Admin Furosemide (Lasix Tab) 20 mg NOW STAT PO 04/22/17 19:30 04/22/17 19:31 DC 04/22/17 19:51 20 MG Acetaminophen (Tylenol Tab) 1,000 mg NOW STAT PO 04/22/17 19:40 04/22/17 19:41 DC 04/22/17 19:51 1,000 MG Tramadol HCl (Ultram Tab) 50 mg NOW STAT PO 04/22/17 19:40 04/22/17 19:41 DC 04/22/17 19:51 50 MG ED Course 1753: The patient was evaluated in room A12A. A complete history and physical exam was performed. 1930: Lasix Tab 20 mg PO 1939: Ultram Tab 50 mg PO, Tylenol Tab 1000 mg PO 2037: Upon reevaluation, the patient is feeling better. I discussed the findings and the treatment plan with the patient. He verbalizes agreement and understanding. He was discharged home. Medical Decision Differential diagnosis: Etiologies such as DVT, musculoskeletal, infection, joint effusion, trauma, lymphedema, idiopathic, CHF, as well as others were entertained.. D-dimer negative and low suspicion for DVT, no evidence of septic arthritis, cellulitis, no history of findings to suggest CHF. Discussed with patient most likely increased swelling due to initiation of amlodipine recently. Discussed with him close follow up with family doctor for additional management of his blood pressure medications. Discussed, decrease salt intake, adequate hydration , elevation of legs when at rest, possible use of compression stockings, symptoms watch and return for, he verbalized understanding was agreeable with plan. I do not suspect any additional underlying infectious etiology or vascular pathology. Medication Reconcilliation Current Medication List: was personally reviewed by me Blood Pressure Screening Patient's blood pressure: Elevated blood pressure Blood pressure disposition: Referred to PCP Impression Primary Impression: Bilateral leg pain Additional Impression: Bilateral edema of lower extremity Scribe Attestation The scribe's documentation has been prepared under my direction and personally reviewed by me in its entirety. I confirm that the note above accurately reflects all work, treatment, procedures, and medical decision making performed by me. Departure Information Dispostion Home / Self-Care Referrals Shanelle Magaña M.D. Forms HOME CARE DOCUMENTATION FORM, IMPORTANT VISIT INFORMATION Patient Instructions ED Lymphedema, My [facility] Additional Instructions Please follow up with your family doctor. Please discuss your medication regimen with them. Please avoid salt in your diet as this could be controlled into your high blood pressure. Please do not add additional salt food. Please avoid processed foods, can foods, daily needs, soda. Please drink more water. Please elevate your feet and legs well at rest help minimize swelling. You may also consider the use of compression stockings of you're going to be on your feet for prolonged periods of time. If you have any worsening pain or swelling , develop trouble breathing, chest pain, swelling in other extremities, fevers, worsening headache, you've any other new concerns, please return the emergency room. Please stop taking your amlodipine at this time as this is likely contributing to your leg swelling. Problem Qualifiers
[2017-04-22 18:48] LABS: BASO % 0.6 %; BASO ABS # 0.03 K/uL (0-0.2); EOS % 3.7 %; EOS ABS # 0.18 K/uL (0-0.5); HEMATOCRIT 39.1 % (42-52); HEMOGLOBIN 13.5 g/dL (14.0-18.0); IG# 0.01 K/uL (0.00-0.02); LYMPH % 35.4 %; LYMPH ABS # 1.71 K/uL (1.2-3.4); MEAN CELL VOLUME 85.2 fL (80-100); MEAN CORPUSCULAR HEMOGLOBIN 29.4 pg (25-34); MEAN CORPUSCULAR HGB CONC 34.5 g/dl (32-36); MEAN PLATELET VOLUME 9.7 fL (7.4-10.4); MONO % 13.7 %; MONO ABS # 0.66 K/uL (0.11-0.59); NEUT % 46.4 %; NEUT ABS # 2.24 K/uL (1.4-6.5); PLATELET COUNT 197 K/uL (130-400); RED CELL DISTRIBUTION WIDTH CV 12.8 % (11.5-14.5); RED CELL DISTRIBUTION WIDTH SD 40.1 fL (36.4-46.3); WHITE BLOOD COUNT 4.83 K/uL (4.8-10.8)
[2017-04-22 19:12] LABS: ALBUMIN 3.3 gm/dl (3.4-5.0); CALCIUM 8.6 mg/dl (8.5-10.1); CREATININE 0.89 mg/dl (0.60-1.40); POTASSIUM 3.9 mmol/L (3.5-5.1)
[2017-04-22 19:17] LABS: TOTAL PROTEIN 6.8 gm/dl (6.4-8.2)
[2017-04-22] MEDS ORDERED: FUROSEMIDE 20 MG TAB PO STA (19:30)
[2017-04-22] MEDS ORDERED: TRAMADOL HCL 50 MG TAB PO STA (19:40)
[2017-04-22] MEDS ORDERED: ACETAMINOPHEN 500 MG TAB PO STA (19:40)
[2017-04-22 20:43] VITALS: BP 156/96; PULSE 76; O2SAT 96
== END 2017-04-22 20:45 | disposition home or self-care (01) ==
LOC: C.EDB 17:19 → C.EDA 20:45
DX: M79.604 Pain in right leg (principal); M79.605 Pain in left leg; R60.0 Localized edema; I10 Essential (primary) hypertension; F31.9 Bipolar disorder, unspecified; E11.9 Type 2 diabetes mellitus without complications; K21.9 Gastro-esophageal reflux disease without esophagitis; Z79.84 Long term (current) use of oral hypoglycemic drugs; Z82.49 Family history of ischemic heart disease and other diseases of the circulatory system; Z84.1 Family history of disorders of kidney and ureter; Z88.8 Allergy status to other drugs, medicaments and biological substances

== ENCOUNTER → 2017-05-07 | Outpatient (CLI) | payer OTHER | END | disposition home or self-care (01) | LOC: C.PATHSPEC 11:13 | PROVIDERS: ATTEND Urology | DX: N40.1 Benign prostatic hyperplasia with lower urinary tract symptoms (principal); R31.0 Gross hematuria; R32 Unspecified urinary incontinence; N20.0 Calculus of kidney ==

== ENCOUNTER → 2017-05-21 | Outpatient (CLI) | payer OTHER ==
[~2017-05-21] MED LIST changes: +OPTIRAY 320 IV PRN
[2017-05-21 15:27] LABS: ALBUMIN 3.9 gm/dl (3.4-5.0); ALKALINE PHOSPHATASE 94 U/L (45-117); ALT/SGPT 104 U/L (12-78); AST/SGOT 47 U/L (15-37); BLOOD UREA NITROGEN 21 mg/dl (7-18); CALCIUM 8.9 mg/dl (8.5-10.1); CARBON DIOXIDE 26 mmol/L (21-32); CREATININE 1.12 mg/dl (0.60-1.40); GLUCOSE 127 mg/dl (70-99); POTASSIUM 4.3 mmol/L (3.5-5.1); SODIUM 132 mmol/L (136-145); TOTAL PROTEIN 7.6 gm/dl (6.4-8.2)
--- NOTE | 2017-05-21 15:55 | DIAGNOSTIC IMAGING REPORT ---
ABD/PELVIS COMBO CLINICAL HISTORY: 46 years-old Male presenting with R31.0 Gross [id number] Nephrolithiasis. TECHNIQUE: Multidetector CT of the abdomen and pelvis was performed before and after the administration of intravenous contrast. IV contrast: 119 mL of Optiray 320. A dose lowering technique was used consistent with the principles of ALARA (as low as reasonably achievable). COMPARISON: None. CT DOSE (mGy.cm): The estimated cumulative dose is 2362.06 mGycm. FINDINGS: Account Underwriter topogram: Unremarkable. Lung bases: Minimal basilar opacities, likely atelectasis. Normal heart size. No pericardial or pleural effusion. Liver: Normal morphology. Density consistent with hepatic steatosis. No focal lesion. Patent hepatic vasculature. Biliary: No intrahepatic or extrahepatic biliary ductal dilatation. Normal gallbladder. Pancreas: Normal. Spleen: Normal. Adrenal glands: Normal. Kidneys and ureters: Punctate nonobstructing calculus at the lower pole of the left kidney. No right renal calculus. No hydronephrosis. No solid renal or urothelial mass. Nonspecific mild perinephric fat stranding. Ureters normal. Bladder: Normal. Pelvic organs: Prostate and seminal vesicles normal. Bowel: Normal appendix. No bowel obstruction. Peritoneal cavity: No free fluid or intraperitoneal gas. Lymph nodes: No enlarged lymph nodes in the abdomen or pelvis. Vasculature: Aorta and IVC patent and normal in caliber. Abdominal wall: Fat-containing left inguinal hernia. Musculoskeletal: Left pars defect of L5. IMPRESSION: 1. Punctate nonobstructing left nephrolithiasis. No hydronephrosis. No solid renal or urothelial neoplasm. This does not preclude cystoscopy if clinically indicated. Electronically signed by: Andre Tellez M.D. 05/21/2017 3:53 PM Dictated Date/Time: 05/21/2017 3:45 PM
== END | disposition home or self-care (01) ==
LOC: C.CTS 14:13
PROVIDERS: ATTEND Urology
DX: N20.0 Calculus of kidney (principal); R31.0 Gross hematuria; N40.1 Benign prostatic hyperplasia with lower urinary tract symptoms; R32 Unspecified urinary incontinence

== ENCOUNTER → 2017-06-15 | Outpatient (CLI) | payer OTHER ==
[~2017-06-15] MED LIST changes: +GADAVIST IV PRN; -OPTIRAY 320 IV PRN
--- NOTE | 2017-06-15 11:01 | DIAGNOSTIC IMAGING REPORT ---
R INJECTION SHOULDER PRE MRI FLUOROSCOPY TIME: 19 seconds CLINICAL HISTORY: 47 years-old Male with SHOULDER PAIN. Acute right shoulder pain PROCEDURE: After obtaining written informed consent, the patient was placed supine on the fluoroscopy table. A suitable site for needle insertion was marked using fluoroscopic guidance. The right shoulder was prepped and draped in the usual sterile fashion. 1% lidocaine was used for skin, subcutaneous and deep soft tissue anesthesia. Under intermittent fluoroscopic guidance, a 22 gauge 2.5 inch spinal needle was inserted into the right glenohumeral joint. A total of 10 cc of one-to-one mixture of dilute Magnevist (0.1 cc in 10 cc saline) and Optiray 300 were injected. The needle was then removed. There were no apparent complications. The patient was transported to MR for further imaging. IMPRESSION: Fluoroscopic-guided right shoulder arthrogram without immediate complication. MR portion of the examination will be dictated separately. The above report was generated using voice recognition software. It may contain grammatical, syntax or spelling errors. Electronically signed by: José Magdaleno M.D. 06/15/2017 10:59 AM Dictated Date/Time: 06/15/2017 10:58 AM
--- NOTE | 2017-06-15 11:35 | DIAGNOSTIC IMAGING REPORT ---
R UPPER EXT JOINT WITH CLINICAL HISTORY: 47 years-old Male with RIGHT SHOULDER PAIN. Acute right shoulder pain COMPARISON: Right shoulder radiographs 04/19/2017. TECHNIQUE: Multiplanar, multi sequence MRI of the right shoulder was performed following the intra-articular administration of gadolinium. FINDINGS: Study is mildly motion degraded. ROTATOR CUFF: Mild tendinosis of the supraspinatus and infraspinatus tendons without high-grade partial or full-thickness tear identified. No tendon retraction. Teres minor and subscapularis tendons also appear intact. The rotator cuff musculature is normal in morphology and signal. BICEPS TENDON: Diminutive morphology of the long head biceps tendon with the intra-articular portion not well visualized. LABRUM: There is tearing of the superior labrum extending anterior to posterior with irregularity, tearing and thickening of the anteroinferior labrum as well. There is no evidence for a paralabral cyst. GLENOHUMERAL JOINT: The articular cartilage overlying the glenoid fossa is normal. There is no loose body or debris present within the glenohumeral joint. ACROMIOCLAVICULAR JOINT: Postoperative changes of the distal acromion with fluid-filled AC joint. Trace subacromial/subdeltoid bursitis. Note is of os acromiale. OUTLET SPACES: The suprascapular notch and quadrilateral space are without obstructing or space occupying lesions. BONE MARROW: No focal abnormality, fracture or marrow occupying lesion. SOFT TISSUES: The periarticular soft tissues are unremarkable. IMPRESSION: 1. Tear of the superior labrum extending anterior to posterior compatible with SLAP tear. No displaced labral fragment or paralabral cyst. Additionally, there is irregularity, tearing and thickening of the anteroinferior labrum. 2. Mild tendinosis of the supraspinatus and infraspinatus tendons without high-grade partial or full-thickness tear identified. 3. Partial resection of the distal clavicle. 4. Diminutive morphology of the long head biceps tendon without evidence of acute tear. The above report was generated using voice recognition software. It may contain grammatical, syntax or spelling errors. Electronically signed by: José Magdaleno M.D. 06/15/2017 11:34 AM Dictated Date/Time: 06/15/2017 11:21 AM
== END | disposition home or self-care (01) ==
LOC: C.MRIBC 09:57
PROVIDERS: ATTEND Family Medicine
DX: M25.511 Pain in right shoulder (principal); S43.431A Superior glenoid labrum lesion of right shoulder, initial encounter; X58.XXXA Exposure to other specified factors, initial encounter

== ENCOUNTER → 2017-06-19 | Outpatient (CLI) | payer OTHER ==
[~2017-06-19] MED LIST changes: -GADAVIST IV PRN
[2017-06-19 10:34] LABS: BASO % 0.6 %; BASO ABS # 0.04 K/uL (0-0.2); EOS ABS # 0.14 K/uL (0-0.5); HEMATOCRIT 40.5 % (42-52); HEMOGLOBIN 14.3 g/dL (14.0-18.0); IG# 0.02 K/uL (0.00-0.02); LYMPH % 34.1 %; LYMPH ABS # 2.35 K/uL (1.2-3.4); MEAN CELL VOLUME 83.9 fL (80-100); MEAN CORPUSCULAR HEMOGLOBIN 29.6 pg (25-34); MEAN CORPUSCULAR HGB CONC 35.3 g/dl (32-36); MEAN PLATELET VOLUME 9.9 fL (7.4-10.4); MONO % 14.7 %; MONO ABS # 1.01 K/uL (0.11-0.59); NEUT % 48.3 %; NEUT ABS # 3.33 K/uL (1.4-6.5); PLATELET COUNT 222 K/uL (130-400); RED CELL DISTRIBUTION WIDTH CV 13.2 % (11.5-14.5); RED CELL DISTRIBUTION WIDTH SD 40.2 fL (36.4-46.3); WHITE BLOOD COUNT 6.89 K/uL (4.8-10.8)
--- NOTE | 2017-06-19 10:34 | DIAGNOSTIC IMAGING REPORT ---
CHEST 2 VIEWS ROUTINE HISTORY: Preop. N40.1 Benign prostatic hyperplasia with urinary [id number] COMPARISON: Chest 05/11/2016. FINDINGS: The lungs are clear. Cardiac silhouette is normal in size. No pleural effusions. No pneumothorax. IMPRESSION: No acute process. Electronically signed by: Freddy Guerrero M.D. 06/19/2017 10:32 AM Dictated Date/Time: 06/19/2017 10:31 AM
[2017-06-19 12:27] LABS: BLOOD UREA NITROGEN 18 mg/dl (7-18); CALCIUM 9.2 mg/dl (8.5-10.1); CARBON DIOXIDE 25 mmol/L (21-32); CREATININE 1.17 mg/dl (0.60-1.40); GLUCOSE 97 mg/dl (70-99); SODIUM 133 mmol/L (136-145)
== END | disposition home or self-care (01) ==
LOC: C.RAD 09:30
PROVIDERS: ATTEND Urology
DX: N40.1 Benign prostatic hyperplasia with lower urinary tract symptoms (principal)

== ENCOUNTER → 2017-06-21 | Outpatient (CLI) | payer OTHER ==
[~2017-06-21] MED LIST changes: +CLON0.5T3 PO; +HYDR25TA4 PO
== END | disposition home or self-care (01) ==
LOC: C.CPL 16:31
PROVIDERS: ATTEND Urology
DX: N40.1 Benign prostatic hyperplasia with lower urinary tract symptoms (principal)

== ENCOUNTER 2017-07-02 07:55 | Day surgery (SDC) | payer OTHER ==
[2017-06-28 12:40] VITALS: BMI 36.0
[~2017-07-02] VITALS: Ht 180.3 cm; Wt 120.5 kg
[~2017-07-02 07:55] MED LIST changes: -DOXA4TAB PO; +GENERAL ORDER PROBLEM SCH; +LACTATED RINGER'S 1000ML 1,000 ML IV SCH
[2017-07-02] MEDS ORDERED: CIPROFLOXACIN 400MG / 200ML D5W ONE (08:10)
[2017-07-02] MEDS ORDERED: TEST1GEL15 TOP (08:37)
[2017-07-02 08:38] VITALS: BP 140/80; PULSE 72; TEMP 36.9; O2SAT 96; Ht 180.3 cm; Wt 120.5 kg
[2017-07-02] MEDS ORDERED: MIDAZOLAM HCL 1 MG/ML 2ML VIAL ONE (10:02)
[2017-07-02] MEDS ORDERED: FENTANYL CITRATE INJ 50 MCG/1 ML 2 ML VIAL ONE ×2 (10:02→10:32)
--- NOTE | 2017-07-02 10:21 | [facility] History and Physical ---
History General Date of Service: Jul 02, 2017. Primary Care Physician: Shanelle Magaña M.D. Pt seen a urologist before?: Yes History of Present Illness Gross hematuria and bladder issues with LUTS and bother. Patient also passes small stones. No major issues. very anxious about procedure. No major problems. Occasional pain in groin in waves moderate and bothersome. Laboratory Labs were reviewed and are within normal limits unless listed below. Labs are available in the chart and at [facility] Problem List Medical Problems: (1) Bilateral edema of lower extremity Status: Acute (2) Bilateral leg pain Status: Acute (3) Headache Status: Acute Social History Hx Tobacco Use In Past Year?: No ( ) Smoking Status: Never Smoker Marital status: Housing status: lives with family Occupation status: employed Immunizations History of Influenza Vaccine: No History of Tetanus Vaccine?: UNKNOWN History of Pneumococcal: No History of Hepatitis B Vaccine: No Allergies Coded Allergies: Bupropion (Verified Allergy, Unknown, headache, 07/02/17) Gemfibrozil (Verified Allergy, Unknown, decreased kidney function, muscle aches, 07/02/17) pt Tamsulosin (Verified Allergy, Unknown, HEADACHES, 07/02/17) Medications Home Medications: Home Meds and Scripts Medications Dose Route/Sig Max Daily Dose Days Date Category Dose Instructions Testosterone 1 % Gel 2 % TOP 07/02/17 Reported plans to begin today Hctz (Hydrochlorothiazide) 25 Mg Tab 25 Mg PO HS 06/28/17 Reported Klonopin (Clonazepam) 0.5 Mg Tab 0.5 Mg PO PRN 06/28/17 Reported Oxycontin (Oxycodone Hcl) 20 Mg Tab 10 Mg PO Q4H PRN 05/11/16 Reported Latuda (Lurasidone Hcl) 40 Mg Tab 20 Mg PO HS 05/11/16 Reported Depakote Etended-Release (Divalproex Sodium) 500 Mg Tabcr 1,500 Mg PO HS 12/30/15 Reported Ondansetron HCl (Ondansetron) 4 Mg Tab 4 Mg PO Q8 PRN 12/30/15 Reported Prilosec (Omeprazole) 40 Mg Cap 40 Mg PO QPM 12/30/15 Reported Lisinopril 20 Mg Tab 40 Mg PO HS 12/30/15 Reported Metformin HCl 500 Mg Tab 500 Mg PO BIDM 12/30/15 Reported Lopressor (Metoprolol Tartrate) 50 Mg Tab 50 Mg PO BID 08/04/13 Reported Inpatient Medications: Current Inpatient Medications Medications (Trade) Dose Ordered Sig/Muna Route Start Time Stop Time Status Last Admin Dose Admin Lactated Ringer's 1,000 ml @ 15 mls/hr Q24H IV 07/02/17 06:00 07/03/17 05:59 Miscellaneous Information (General Order Problem) 1 ea QS N/A 06/28/17 16:00 07/28/17 15:59 Review of Systems Review of Systems All Other Systems: Reviewed and Negative (All reviewed. See HPI for full report ) Physical Exam Vital Signs: Vital Signs Past 12 Hours Date Time Temp Pulse Resp B/P (MAP) Pulse Ox O2 Delivery O2 Flow Rate FiO2 07/02/17 08:38 36.9 72 18 140/80 (100) 96 Room Air Physical Exam: General Appearance: WD/WN, no apparent distress Eyes: bilateral eyes normal inspection ENT: normal ENT inspection Neck: supple, no JVD Respiratory/Chest: no respiratory distress Cardiovascular: regular rate, rhythm Gastrointestinal: Abdomen: normal abdomen Extremities: normal range of motion, normal inspection, no pedal edema Neurologic/Psychiatric: beekeeper II-XII nml as tested, no motor/sensory deficits, alert, normal mood/affect, oriented x 3 Skin: normal color, warm/dry Lymphatic: no adenopathy Assessment & Plan Assessment & Plan Assessment & Plan: 1 Gross hematuria 2. Dysuria 3. Nephrolithaisis. Plan to do cystoscopy with possible biopsy. discussed at length with patient. Patient nervous about procedure, but otherwise no issues or concern. s Risks and benefits discussed at length.
[2017-07-02] MEDS ORDERED: OXYC20TA50 PO (10:35)
[2017-07-02] MEDS ORDERED: PHEN-775 PO (10:35)
[2017-07-02] MEDS ORDERED: CIPR-255 PO (10:35)
[2017-07-02] MEDS ORDERED: PROPOFOL IV EMULSION 10 MG/ML 20 ML VIAL ONE (10:44)
[2017-07-02] MEDS ORDERED: LIDOCAINE HCL 2% 2 ML VIAL (20MG/ML) ONE (10:44)
[2017-07-02] MEDS ORDERED: ONDANSETRON INJ 2 MG/ML 2 ML VIAL ONE (10:44)
[2017-07-02] MEDS ORDERED: ONDANSETRON INJ 2 MG/ML 2 ML VIAL IV PRN (10:45)
[2017-07-02] MEDS ORDERED: LABETALOL HCL IV 5 MG/ML 20ML IV PRN (10:45)
[2017-07-02] MEDS ORDERED: MEPERIDINE HCL 25 MG/ML CARP IV PRN (10:45)
[2017-07-02] MEDS ORDERED: ATROPINE SULFATE 0.1 MG/ML 5ML SYR IV PRN (10:45)
[2017-07-02] MEDS ORDERED: EpHEDrine SULFATE INJ 50 MG/ML AMP IV PRN (10:45)
[2017-07-02] MEDS ORDERED: BELLADONNA/OPIUM SUPP 60 MG SUPP PR ONE ×2 (10:45→10:48)
[2017-07-02] MEDS ORDERED: HYDROmorphone INJ 1 MG/ML SYR IV PRN (10:45)
--- NOTE | 2017-07-02 10:46 | [facility] Operative Report ---
Operative Report Operative Date Jul 02, 2017. Pre-Operative Diagnosis Gross Hematuria Post-Operative Diagnosis Same Procedure(s) Performed Cystoscopy Surgeon Damien Estimated Blood Loss Minimal Findings NonEnlarged prostate, small bladder capacity. No masses or lesions Drains None Anesthesia Type MAC Complication(s) none Disposition Recovery Room / PACU Indications Gross hematuria. Risks and benefits Discussed. Negative CT scan. Description of Procedure Patient was consented and brought back to the operating room. Patient was placed under anesthesia in the supine position and moved to the dorsal lithotomy position. Patient was prepped and draped in the regular sterile fashion. A time out was completed. A 30degree Cystoscope was placed into the bladder and the entire bladder was examined. The UO's were identified. The entire bladder was assessed with both 30 and 70 degree lenses. Images were captured. The prostate was also assessed. Patient had a high bladder neck with small prostate and no significant enlargement. Bladder was small for volume. No lesions or issues. Moderate hypervascularity. The bladder was emptied. The scope was removed. The patient was cleaned, aroused from anesthesia, and transferred to the pacu in stable condition having tolerated the procedure well with no complications. I was present and participated in all aspects of the procedure. The patient will be monitored in the PACU until transferred. I attest to the content of the Intraoperative Record and any orders documented therein. Any exceptions are noted below.
--- NOTE | 2017-07-02 10:47 | Discharge Instructions ---
Discharge Instructions Date of Service Jul 02, 2017. Admission Reason for Admission: Benign Prostatic Hyperplasia W/Urinary Obstruction Discharge Discharge Diagnosis / Problem: Gross hematuria Discharge Goals Goal(s): Decrease discomfort, Improve function Activity Recommendations Activity Limitations: resume your previous activity Lifting Limitations: gradually increase as tolerated Exercise/Sports Limitations: gradually increase as tolerated . Instructions / Follow-Up Instructions / Follow-Up May have pelvic pain. May have discomfort. May have blood in urine. Call if any fevers or chills. Current Hospital Diet Patient's current hospital diet: Discharge Diet Recommended Diet: Regular Diet Procedures Procedures Performed: Cystoscopy Pending Studies Studies pending at discharge: no Medical Emergencies . Who to Call and When: Medical Emergencies: If at any time you feel your situation is an emergency, please call 911 immediately. . Non-Emergent Contact Non-Emergency issues call your: Primary Care Provider, Urologist Call Non-Emergent contact if: you have a fever, temperature is above 101, temperature is above 101.5, your pain is not controlled, your pain is worsening , your pain is unusual for you . . "Provider Documentation" section prepared by Ap Quezada. .
[2017-07-02] MEDS ORDERED: OXYCODONE HCL IR 5 MG TAB (IMMEDIATE RELEASE) PO PRN (11:00)
[2017-07-02] MEDS: FENTANYL CITRATE INJ 50 MCG/1 ML 2 ML VIAL IV PRN ×2 (11:15→11:21)
[2017-07-02] MEDS ORDERED: KETOROLAC TROMETHAMINE 30 MG/ML VIAL ONE (11:27)
[2017-07-02] MEDS ORDERED: NURSING VERBAL MED ORDER ONE ×2 (11:45→12:45)
[2017-07-02 12:01] VITALS: BP 119/81; PULSE 64; TEMP 36.9; O2SAT 98
--- NOTE | 2017-07-02 12:06 | Anesthesiology Progress Note ---
Anesthesia Post Op Note Date & Time Jul 02, 2017 at 12:06 Vital Signs Pain Intensity: 5 Vital Signs Past 12 Hours Date Time Temp Pulse Resp B/P (MAP) Pulse Ox O2 Delivery O2 Flow Rate FiO2 07/02/17 11:35 36.2 66 16 122/89 97 Room Air 07/02/17 11:25 68 16 123/75 100 Room Air 07/02/17 11:15 71 16 116/83 100 Oxymask 3 07/02/17 11:05 73 16 154/98 100 Oxymask 5 07/02/17 10:55 36.8 70 16 137/93 100 Oxymask 10 07/02/17 08:38 36.9 72 18 140/80 (100) 96 Room Air Notes Mental Status: alert / awake / arousable, participated in evaluation Pt Amnestic to Procedure: Yes Nausea / Vomiting: adequately controlled Pain: adequately controlled Airway Patency, RR, SpO2: stable & adequate BP & HR: stable & adequate Hydration State: stable & adequate Anesthetic Complications: no major complications apparent
[2017-07-02 12:27] VITALS: BP 123/81; PULSE 61; O2SAT 100
[2017-07-02] MEDS ORDERED: PHENAZOPYRIDINE HCL 200 MG TAB PO ONE (12:33)
== END 2017-07-02 13:04 | disposition home or self-care (01) ==
LOC: C.ACU 07:55
PROVIDERS: ATTEND Urology
DX: R30.0 Dysuria (principal); R31.9 Hematuria, unspecified; N20.0 Calculus of kidney; K21.9 Gastro-esophageal reflux disease without esophagitis; E11.9 Type 2 diabetes mellitus without complications; I10 Essential (primary) hypertension

== ENCOUNTER 2018-10-01 17:23 | Inpatient (IN) ==
--- OUTSIDE RECORDS SUMMARY | 2018-10-01 17:26 | External Medical Summary | Continuity of Care Document ---
:1970 Author Name Irwin Gutierrez, Provider Address Unavailable Unavailable , Care Team Providers Name Role Phone Unavailable Unavailable Unavailable Cookie Edmonds Unavailable [email or web address] Ap Quezada II, DO Unavailable [email or web address] Unavailable Unavailable Unavailable Unavailable Unavailable Problems Incontinence (788.30) (R32) Hypertension (401.9) (I10) Psychological disorder (300.9) (F99) Nephrolithiasis (592.0) (N20.0) Benign prostatic hyperplasia with urinary obstruction (600.0 1) (N40.1) Gross hematuria (599.71) (R31.0) Chronic interstitial cystitis (595.1) (N30.10) Allergies and Adverse Reactions Calcium Channel Blockers (Allergy) React ion: Edema lithium (Allergy) Tamsulosin HCl CAPS (Adverse Event) Onset: 23-May-2017 Reac tion: Headache Wellbutrin (Allergy) Medications Alfuzosin HCl ER 10 MG Oral Tablet Exten ded Release 24 Hour; TAKE 1 TABLET Daily after supper VY Pulido Start: 23-May-2017 Quantity: 30 Refills: 6 oxyCODONE HCl TABS , M.D. Refills: 0 Glucophage 500 MG Oral Tablet , M.D. Refills: 0 hydroCHLOROthiazide 25 MG Oral Tablet , M.D. Refills: 0 Metoprolol Tartrate 50 MG Oral Tablet , M.D. Refills: 0 Lisinopril 40 MG Oral Tablet , M.D. Refills: 0 Omeprazole 40 MG Oral Capsule Delayed Release , M.D. Refills: 0 Latuda 20 MG Oral Tablet , M.D. Refills: 0 Depakote 500 MG Oral Tablet Delayed Release , M.D. Refills: 0 oxyCODONE-Acetaminophen 10-325 MG Oral T ablet; TAKE 1 TABLET 4 TIMES DAILY NEEDED FOR PAIN. DO Ap Quezada II Start: 17-Jul-2017 Quantity: 32 Refills: 0 Testosterone 10 MG/ACT (2%) Transdermal Gel , M.D. Refills: 0 Oxybutynin Chloride ER 5 MG Oral Tablet Extended Release 24 Hour; Take 1 tablet daily DO Ap Quezada II Start: 17-Jul-2017 Quantity: 30 Refills: 11 Procedures History of shoulder surgery Status: Comp leted History of plantar fasciotomy Status: Co mpleted History of vasectomy Status: Completed Immunizations Immunizations not documented Family History Mother Family history of hypertension (V17.49) (Z82.49) Status: Act dima Father Family history of hypertension (V17.49) (Z82.49) Status: Act dima Family history of kidney stones (V18.69) (Z84.1) Status: Act dima Grandfather Family history of malignant neoplasm (V16.9) (Z80.9) Status: Active Social History - Smoking Status Never smoker Plan of Treatment Planned Observations Planned Goals not documented Results No Known Results Results not documented Encounters Appointment; Ap Quezada II, DO 17-Jul-2017 15:05 Encounter Diagnosis: Problem not documented Appointment; Ap Quezada II, DO 02-Jul-2017 9:30 Encounter Diagnosis: Problem not documented Appointment; Ap Quezada II, DO 07-May-2017 15:40 Encounter Diagnosis: Problem not documented
[2018-10-01] MEDS ORDERED: SODIUM CHLORIDE 0.9% 1000ML 1,000 ML IV SCH (18:15)
[2018-10-01] MEDS ORDERED: ONDANSETRON INJ 2 MG/ML 2 ML VIAL IV STA (18:24)
[2018-10-01] MEDS ORDERED: FAMOTIDINE 20MG/5ML IV PUSH IV STA (18:24)
[2018-10-01 18:27] LABS: Albumin Level 4.2 gm/dl (3.4-5.0); BUN Creatinine Ratio 13.5 (10-20); Calcium 8.9 mg/dl (8.5-10.1); Creatinine Clr Calc Pharmacy 84.1 ml/min; Est GFR (African American) 67.3; Est GFR (Non-African American) 58.1; Potassium 3.6 mmol/L (3.5-5.1)
[2018-10-01] MEDS ORDERED: GI COCKTAIL ED USE PO ONE (18:27)
[2018-10-01] MEDS ORDERED: SODIUM CHLORIDE 0.9% 1000ML 1,000 ML IV ONE (18:27)
[2018-10-01] MEDS ORDERED: cloNIDine HCl 0.1 MG TAB PO ONE (18:28)
[2018-10-01 18:30] LABS: Albumin Globulin Ratio 1.1 (0.9-2); Bilirubin,Total 0.4 mg/dl (0.2-1); Globulin 3.7 gm/dl (2.5-4.0); Total Protein 7.9 gm/dl (6.4-8.2)
--- NOTE | 2018-10-01 18:32 | Emergency Department Note ---
Entered by Savannah Amador acting as a scribe for Lyndon Joaquin M.D. History of Present Illness General Chief complaint: Nausea Stated complaint: NAUSEA,SICK Source: patient History of Present Illness Onset (ago): day(s) 3 Location: mouth (nausea) Pain Consistency: + other (worsening) Maximum Pain Intensity: 6 Exacerbated By: + other (withdrawl) Associated symptoms: + denies other symptoms (diarrhea, blood in vomit), + confusion, + headaches, + nausea/vomiting and + other (abdominal soreness, anxiety); no chest pain The patient is a 48 year old M who presents to the Emergency Room with complaints of worsening nausea that started 3 days ago. He notes that he is currently prescribed oxycodone for chronic shoulder pain. He states that his previous dosage was 6 tablets of 10 mgs. He notes that he has been trying to taper off of his medication and has reduced his dosage to 3 tablets of 10 mgs. He states that he is currently experiencing a headache, abdominal soreness, vomiting, and anxiety. He denies experiencing diarrhea, chest pain, and blood in vomit. He adds that he has not been able to keep anything down. He notes that he seemed a little more foggy and confused at work this week. He states that he has a history of a cholecystectomy, bipolar disorder type 2, pre-diabetes, and HTN. He notes that he takes Metoprolol and Lisinopril. The patients adds that she has been giving the patient Kratom. The patient denies a history of alcohol use. Home Medications Home Medications Medication Instructions Recorded Confirmed Type cholecalciferol (vitamin D3) 1,000 unit PO DAILY 04/08/18 10/01/18 History [Vitamin D3] divalproex [Depakote ER] 1,500 mg PO QPM 04/08/18 10/01/18 History ferrous sulfate 325 mg PO DAILY 04/08/18 10/01/18 History hydrochlorothiazide 25 mg PO QPM 04/08/18 10/01/18 History lisinopril [Zestril] 40 mg PO QPM 04/08/18 10/01/18 History lurasidone [Latuda] 20 mg PO QPM 04/08/18 10/01/18 History metformin [Glucophage] 500 mg PO BID 04/08/18 10/01/18 History metoprolol tartrate [Lopressor] 50 mg PO BID 04/08/18 10/01/18 History omeprazole 40 mg PO QPM 04/08/18 10/01/18 History oxycodone 10 mg PO UD PRN 04/08/18 10/01/18 History allopurinol 50 mg PO DAILY 10/01/18 10/01/18 History clonazepam 0.5 g PO DAILY PRN 10/01/18 10/01/18 History ondansetron HCl 8 mg PO DIRECTED PRN 10/01/18 10/01/18 History testosterone 10 mg TOPICAL QPM 10/01/18 10/01/18 History Allergies Allergy/AdvReac Type Severity Reaction Status Date / Time bupropion Allergy Severe headache, Verified 10/01/18 18:24 change mental status gemfibrozil Allergy Unknown decreased Verified 10/01/18 18:24 kidney function, muscle aches tamsulosin Allergy Unknown HEADACHES Verified 10/01/18 18:24 allopurinol AdvReac Severe Nausea and Verified 10/01/18 18:24 vomiting aripiprazole AdvReac Severe flicking Verified 10/01/18 18:24 tongue colchicine AdvReac Severe Nausea Verified 10/01/18 18:24 febuxostat [From Uloric] AdvReac Severe Nausea Verified 10/01/18 18:24 CALCIUM CHANNEL BLOCKERS AdvReac Severe SEVERE Uncoded 10/01/18 18:24 SWELLING Past Med/Surg History Medical History Hypertension (Chronic) Biliary colic (Chronic) Surgical History S/P cholecystectomy (Chronic) Social History Preferred Language: Upper Sorbian Communication Ability: Effective Visual Impairment: No Limitations Hearing Ability: Normal Feels Safe at Home: Yes Smoking Status: Never smoker Review of Systems See HPI for pertinent positives & negatives. and A total of 10 systems reviewed and were otherwise negative Physical Exam Vital Signs Vital Signs - 24 hr 10/01/18 17:27 10/01/18 18:20 10/01/18 19:09 Temperature 36.7 C Temperature Source Oral Sepsis Recent Fever Within 48 Hours No Sepsis Action Taken by Nursing No Action Required Pulse Rate 89 Pulse Rate [Apical] 85 Respiratory Rate 18 22 Respiratory Effort / Characteristics Non-Labored Respiratory Depth Normal Blood Pressure 152/90 H Blood Pressure [Right Arm] 143/90 H Blood Pressure Mean 110 Blood Pressure Mean [Right Arm] 107 Blood Pressure Position Sitting Blood Pressure Position [Right Arm] Pulse Oximetry 97 98 96 Oxygen Delivery Method Room Air Room Air Room Air 10/01/18 21:19 Temperature Temperature Source Sepsis Recent Fever Within 48 Hours Sepsis Action Taken by Nursing Pulse Rate Pulse Rate [Apical] 75 Respiratory Rate 18 Respiratory Effort / Characteristics Non-Labored Respiratory Depth Normal Blood Pressure Blood Pressure [Right Arm] 117/68 Blood Pressure Mean Blood Pressure Mean [Right Arm] 84 Blood Pressure Position Blood Pressure Position [Right Arm] Lying Pulse Oximetry 97 Oxygen Delivery Method Room Air GENERAL: Awake, alert to person, place, events, appears anxious HENT: Normocephalic, atraumatic. PERRL. EOMI. EYES: Normal conjunctiva. Sclera non-icteric. NECK: Supple. No nuchal rigidity. RESPIRATORY: Clear to auscultation. No wheezes. Normal respiratory effort. CARDIAC: Normal rate. Normal rhythm. Extremities warm and well perfused. GI: Soft, non-distended. No tenderness to palpation. No rebound or guarding. No masses. RECTAL: Deferred. MUSCULOSKELETAL: Atraumatic. Chest examination reveals no tenderness. LOWER EXTREMITIES: Calves are equal size bilaterally and non-tender. No edema NEURO: No sensory or motor deficits noted. No facial droop. No slurred speech. Slight leg tremulousness. SKIN: Warm and dry. No rash or jaundice noted. Course 1819: The patient was evaluated in room C2B. A complete history and physical exam was performed. 2034: I reviewed the patient's [facility] He will evaluate the patient for further management. Consultations Consultation #1: I reviewed the patient's case [facility] He will evaluate the patient for further management. Time: 20:35 Administered Medications Discontinued Medications Al Hydrox/Mg Hydrox/Simethicone () 1 dose PO ONE ONE Stop: 10/01/18 18:28 Last Admin: 10/01/18 19:15 Dose: 1 dose Documented by: [id number] Clonazepam (Klonopin) 0.5 mg PO NOW STA Stop: 10/01/18 20:20 Last Admin: 10/01/18 20:21 Dose: 0.5 mg Documented by: [id number] Clonidine HCl (Catapres) 0.1 mg PO NOW ONE Stop: 10/01/18 18:29 Last Admin: 10/01/18 19:40 Dose: 0.1 mg Documented by: [id number] Famotidine (Pepcid 20mg Iv Push) 20 mg IV ONE STA Stop: 10/01/18 18:25 Last Admin: 10/01/18 19:14 Dose: 20 mg Documented by: [id number] Sodium Chloride (Nss 1000ml) 1,000 mls @ 999 mls/hr IV .Q1H1M KERON Stop: 10/01/18 19:15 Last Admin: 10/01/18 19:17 Dose: Not Given Documented by: [id number] Sodium Chloride (Nss 1000ml) 1,000 mls @ 999 mls/hr IV .Q1H1M ONE Stop: 10/01/18 19:27 Last Admin: 10/01/18 19:18 Dose: Not Given Documented by: [id number] Sodium Chloride (Nss 1000ml) 250 mls @ 999 mls/hr IV .Q16M ONE Stop: 10/01/18 19:29 Last Infusion: 10/01/18 20:19 Dose: 0 mls/hr Documented by: [id number] Admin: 10/01/18 19:16 Dose: 250 mls/hr Documented by: [id number] Ibuprofen (Motrin) 600 mg PO NOW STA Stop: 10/01/18 19:14 Last Admin: 10/01/18 19:39 Dose: 600 mg Documented by: [id number] Ondansetron HCl (Zofran) 4 mg IV NOW STA Stop: 10/01/18 18:25 Last Admin: 10/01/18 19:15 Dose: 4 mg Documented by: [id number] Medical Decision Making Differential Diagnosis Differential diagnosis includes: gastroenteritis, food borne illness, infections, appendicitis, diverticulitis, inflammatory bowel disease, obstruction, GI bleed, biliary pathology, as well as others were entertained. Medical Records Attestation: I reviewed the patient's medical records. Home Medications Current Medication List: was personally reviewed by me Laboratory Data Attestation: I reviewed the patient's lab results. Result diagrams: 10/01/18 18:03 10/01/18 18:03 Lab Results 10/01/18 10/01/18 10/01/18 Range/Units 18:03 18:03 18:03 WBC 9.96 (4.8-10.8) K/uL RBC 5.48 (4.7-6.1) M/uL Hgb 16.9 (14.0-18.0) g/dL Hct 45.8 (42-52) % MCV 83.6 (80-100) fL MCH 30.8 (25-34) pg MCHC 36.9 H (32-36) g/dL RDW Std Deviation 37.6 (36.4-46.3) fL RDW Coeff of Tamiko 12.4 (11.5-14.5) % Plt Count 262 (130-400) K/uL MPV 10.1 (7.4-10.4) fL Immature Gran % (Auto) 0.5 % Neut % (Auto) 53.1 % Lymph % (Auto) 31.7 % [place] % (Auto) 13.3 % Eos % (Auto) 1.1 % Baso % (Auto) 0.3 % Immature Gran # (Auto) 0.05 H (0.00-0.02) K/uL Neut # (Auto) 5.15 (1.4-6.5) K/uL Lymph # (Auto) 3.08 (1.2-3.4) K/uL [place] # (Auto) 1.29 H (0.11-0.59) K/uL Eos # (Auto) 0.11 (0-0.5) K/uL Baso # (Auto) 0.03 (0-0.2) K/uL RBC Morphology Unremarkable Sodium 122 L (136-145) mmol/L Potassium 3.6 (3.5-5.1) mmol/L Chloride 90 L (98-107) mmol/L Carbon Dioxide 20 L (21-32) mmol/L Anion Gap 13.0 H (3-11) BUN 19 H (7-18) mg/dl Creatinine 1.41 H (0.6-1.4) mg/dl Est Cr Clr Drug Dosing 84.1 ml/min Est GFR ( Amer) 67.3 Est GFR (Non-Af Amer) 58.1 BUN/Creatinine Ratio 13.5 (10-20) Glucose 118 H (70-99) mg/dl Osmolality (280-300) mOsm/kg Calcium 8.9 (8.5-10.1) mg/dl Magnesium 2.3 (1.8-2.4) mg/dl Total Bilirubin 0.4 (0.2-1) mg/dl AST 49 H (15-37) U/L ALT 87 H (12-78) U/L Alkaline Phosphatase 102 (45-117) U/L Troponin I < 0.015 (0-0.045) ng/ml Total Protein 7.9 (6.4-8.2) gm/dl Albumin 4.2 (3.4-5.0) gm/dl Globulin 3.7 (2.5-4.0) gm/dl Albumin/Globulin Ratio 1.1 (0.9-2) Lipase 560 H (73-393) U/L Urine Color Urine Appearance (Clear) Urine pH (4.5-7.5) Ur Specific [place] (1.000-1.030) Urine Protein (Negative) Urine Glucose (UA) (Negative) Urine Ketones (Negative) Urine Blood (Negative) Urine Nitrite (Negative) Urine Bilirubin (Negative) Urine Urobilinogen (Negative) Ur Leukocyte Esterase (Negative) Urine Osmolality (500-800) mOsm/kg 10/01/18 10/01/18 10/01/18 Range/Units 18:03 18:03 20:20 WBC (4.8-10.8) K/uL RBC (4.7-6.1) M/uL Hgb (14.0-18.0) g/dL Hct (42-52) % MCV (80-100) fL MCH (25-34) pg MCHC (32-36) g/dL RDW Std Deviation (36.4-46.3) fL RDW Coeff of Tamiko (11.5-14.5) % Plt Count (130-400) K/uL MPV (7.4-10.4) fL Immature Gran % (Auto) % Neut % (Auto) % Lymph % (Auto) % [place] % (Auto) % Eos % (Auto) % Baso % (Auto) % Immature Gran # (Auto) (0.00-0.02) K/uL Neut # (Auto) (1.4-6.5) K/uL Lymph # (Auto) (1.2-3.4) K/uL [place] # (Auto) (0.11-0.59) K/uL Eos # (Auto) (0-0.5) K/uL Baso # (Auto) (0-0.2) K/uL RBC Morphology Sodium (136-145) mmol/L Potassium (3.5-5.1) mmol/L Chloride (98-107) mmol/L Carbon Dioxide (21-32) mmol/L Anion Gap (3-11) BUN (7-18) mg/dl Creatinine (0.6-1.4) mg/dl Est Cr Clr Drug Dosing ml/min Est GFR ( Amer) Est GFR (Non-Af Amer) BUN/Creatinine Ratio (10-20) Glucose (70-99) mg/dl Osmolality 259 L (280-300) mOsm/kg Calcium (8.5-10.1) mg/dl Magnesium Cancelled (1.8-2.4) mg/dl Total Bilirubin (0.2-1) mg/dl AST (15-37) U/L ALT (12-78) U/L Alkaline Phosphatase (45-117) U/L Troponin I (0-0.045) ng/ml Total Protein (6.4-8.2) gm/dl Albumin (3.4-5.0) gm/dl Globulin (2.5-4.0) gm/dl Albumin/Globulin Ratio (0.9-2) Lipase (73-393) U/L Urine Color Yellow Urine Appearance Clear (Clear) Urine pH 5.0 (4.5-7.5) Ur Specific [place] 1.014 (1.000-1.030) Urine Protein Negative (Negative) Urine Glucose (UA) Negative (Negative) Urine Ketones Negative (Negative) Urine Blood Negative (Negative) Urine Nitrite Negative (Negative) Urine Bilirubin Negative (Negative) Urine Urobilinogen Negative (Negative) Ur Leukocyte Esterase Negative (Negative) Urine Osmolality (500-800) mOsm/kg 10/01/18 Range/Units 20:20 WBC (4.8-10.8) K/uL RBC (4.7-6.1) M/uL Hgb (14.0-18.0) g/dL Hct (42-52) % MCV (80-100) fL MCH (25-34) pg MCHC (32-36) g/dL RDW Std Deviation (36.4-46.3) fL RDW Coeff of Tamiko (11.5-14.5) % Plt Count (130-400) K/uL MPV (7.4-10.4) fL Immature Gran % (Auto) % Neut % (Auto) % Lymph % (Auto) % [place] % (Auto) % Eos % (Auto) % Baso % (Auto) % Immature Gran # (Auto) (0.00-0.02) K/uL Neut # (Auto) (1.4-6.5) K/uL Lymph # (Auto) (1.2-3.4) K/uL [place] # (Auto) (0.11-0.59) K/uL Eos # (Auto) (0-0.5) K/uL Baso # (Auto) (0-0.2) K/uL RBC Morphology Sodium (136-145) mmol/L Potassium (3.5-5.1) mmol/L Chloride (98-107) mmol/L Carbon Dioxide (21-32) mmol/L Anion Gap (3-11) BUN (7-18) mg/dl Creatinine (0.6-1.4) mg/dl Est Cr Clr Drug Dosing ml/min Est GFR ( Amer) Est GFR (Non-Af Amer) BUN/Creatinine Ratio (10-20) Glucose (70-99) mg/dl Osmolality (280-300) mOsm/kg Calcium (8.5-10.1) mg/dl Magnesium (1.8-2.4) mg/dl Total Bilirubin (0.2-1) mg/dl AST (15-37) U/L ALT (12-78) U/L Alkaline Phosphatase (45-117) U/L Troponin I (0-0.045) ng/ml Total Protein (6.4-8.2) gm/dl Albumin (3.4-5.0) gm/dl Globulin (2.5-4.0) gm/dl Albumin/Globulin Ratio (0.9-2) Lipase (73-393) U/L Urine Color Urine Appearance (Clear) Urine pH (4.5-7.5) Ur Specific [place] (1.000-1.030) Urine Protein (Negative) Urine Glucose (UA) (Negative) Urine Ketones (Negative) Urine Blood (Negative) Urine Nitrite (Negative) Urine Bilirubin (Negative) Urine Urobilinogen (Negative) Ur Leukocyte Esterase (Negative) Urine Osmolality 255 L (500-800) mOsm/kg Imaging Data Radiologist's Impression: Radiology results as stated below per my review and the radiologist's interpretation: XR chest 1V portable CLINICAL HISTORY: vomiting, epigastric pain nausea. Vomiting. Pain. COMPARISON STUDY: 04/08/2018 FINDINGS: The bones soft tissues and hemidiaphragms are normal. The cardiomedias tinal silhouette is normal. The lungs are clear. The pulmonary vasculature is normal. IMPRESSION: Negative chest. The above report was generated using voice recognition software. It may contain grammatical, syntax or spelling errors. Electronically signed by: Miguelito Zamorano M.D. 10/01/2018 7:22 PM ECG Data Attestation: I personally reviewed and interpreted this ECG as follows: Indication: nausea Rate (beats per minute): 83 Rhythm: normal sinus Findings: + other (normal intervals); no PVC, no ST depression and no ST elevation Blood Pressure Blood Pressure Findings: Elevated blood pressure Blood Pressure Disposition: further management by hospitalist GIAN Narrative Patient is a 48-year-old gentle shoulder pain maintained on chronic opioid therapy as well as a history of hypertension anxiety bipolar presenting today w ith complaints of several days of nausea and the taper down from his opiate therapy. Doing this by himself. Possible episode of vomiting. No significant abdominal pain. Bit of a raspy voice. Chest x-ray without acute findings. Do not believe any CT imaging the abdomen pelvis. Laboratory studies show no significant leukocytosis or anemia. Significant acute hyponatremia is noted laboratory studies. Patient does relate his been trying to increase his fluid intake (Smartwater) but appears clinically little bit dehydrated. Did try little bit of Klonopin and clonidine to help with withdrawal symptoms as well as a small 250 mL bolus of normal saline. Also relays he feels a bit confused wh ile at work the last day or 2; consistent with hyponatremia. Does not have any focal neurological deficit and doubt acute intracranial bleed or stroke at this point. Given the significant hyponatremia believe that admission for correction and continue assistance with his withdrawal is needed. He denies any significant alcohol usage. [facility] hospitalist was contacted. Impression & Plan Acute hyponatremia, Opiate withdrawal Discharge Plan Visit Data Chief Complaint: Nausea Stated Complaint: NAUSEA,SICK ED Provider: Lyndon Joaquin Discharge Problem: Acute hyponatremia, Opiate withdrawal Patient Disposition: Admitted As Inpatient The scribe's documentation has been prepared under my direction and personally reviewed by me in its entirety. I confirm that the note above accurately reflects all work, treatment, procedures, and medical decision making performed by me.
[2018-10-01 19:02] LABS: Magnesium 2.3 mg/dl (1.8-2.4); Troponin I < 0.015 ng/ml (0-0.045)
[2018-10-01] MEDS ORDERED: IBUPROFEN 600 MG TAB PO STA (19:13)
[2018-10-01] MEDS ORDERED: SODIUM CHLORIDE 0.9% 1000ML 250 ML IV ONE (19:14)
--- NOTE | 2018-10-01 19:23 | XRay Report ---
XR chest 1V portable CLINICAL HISTORY: vomiting, epigastric pain nausea. Vomiting. Pain. COMPARISON STUDY: 04/08/2018 FINDINGS: The bones soft tissues and hemidiaphragms are normal. The cardiomediastinal silhouette is n ormal. The lungs are clear. The pulmonary vasculature is normal. IMPRESSION: Negative chest. The above report was generated using voice recognition software. It may contain grammatical, syntax or spelling errors. Electronically signed by: Miguelito Zamorano M.D. 10/01/2018 7:22 PM
[2018-10-01 19:58] LABS: Hematocrit (blood only) 45.8 % (42-52); Hemoglobin 16.9 g/dL (14.0-18.0); Mean Corpuscular Hgb Conc 36.9 g/dL (32-36); Mean Corpuscular Volume 83.6 fL (80-100); Mean Platelet Volume 10.1 fL (7.4-10.4); Platelet Count 262 K/uL (130-400); RDW Coefficient of Variation 12.4 % (11.5-14.5); RDW Standard Deviation 37.6 fL (36.4-46.3); Red Blood Count 5.48 M/uL (4.7-6.1); White Blood Count 9.96 K/uL (4.8-10.8)
[2018-10-01 19:59] LABS: Basophils # (auto) 0.03 K/uL (0-0.2); Basophils % (auto) 0.3 %; Eosinophils # (auto) 0.11 K/uL (0-0.5); Eosinophils % (auto) 1.1 %; Immature Granulocytes # (auto) 0.05 K/uL (0.00-0.02); Immature Granulocytes % (auto) 0.5 %; Lymphocytes # (auto) 3.08 K/uL (1.2-3.4); Lymphocytes % (auto) 31.7 %; Monocytes # (auto) 1.29 K/uL (0.11-0.59); Monocytes % (auto) 13.3 %; Neutrophils # (auto) 5.15 K/uL (1.4-6.5); Neutrophils % (auto) 53.1 %; RBC Morphology Unremarkable
[2018-10-01] MEDS ORDERED: clonazePAM 0.5 MG TAB PO STA (20:19)
[2018-10-01 20:28] LABS: Appearance Urine Clear (Clear); Bilirubin Urine Negative (Negative); Blood Urine Negative (Negative); Color Urine Yellow; Glucose Urine UA Negative (Negative); Ketones Urine Negative (Negative); Leukocyte Esterase Urine Negative (Negative); Nitrite Urine Negative (Negative); Protein Urine Negative (Negative); Specific Gravity Urine 1.014 (1.000-1.030); Urobilinogen Urine Negative (Negative)
[2018-10-01] MEDS ORDERED: OXYCODONE HCL IR 5 MG TAB (IMMEDIATE RELEASE) PO SCH (22:10)
[2018-10-01] MEDS ORDERED: POLYETHYLENE (MIRALAX) 17 GM PACK PO PRN (23:12)
[2018-10-01] MEDS ORDERED: clonazePAM 0.5 MG TAB PO PRN (23:12)
[2018-10-01] MEDS ORDERED: NITROGLYCERIN SL 0.4 MG/TAB TAB SL PRN (23:12)
[2018-10-01] MEDS ORDERED: ONDANSETRON 8 MG TABLET PO PRN (23:12)
[2018-10-01] MEDS ORDERED: PANTOprazole 40 MG TAB PO SCH (23:30)
[2018-10-01] MEDS ORDERED: DIVALPROEX EXTENDED RELEASE 500 MG TAB PO SCH (23:30)
[2018-10-01] MEDS ORDERED: LURASIDONE HCL 40 MG TAB PO SCH (23:30)
[2018-10-01] MEDS ORDERED: GLUCAGON FOR INJ 1 MG VIAL IM PRN (23:45)
[2018-10-01] MEDS ORDERED: DEXTROSE 50% 50 ML SYRINGE IV PRN (23:45)
[2018-10-01] MEDS ORDERED: GLUCOSE 40% GEL 15 GM TUBE PO PRN (23:45)
[2018-10-01] MEDS ORDERED: CARBOHYDRATES FOR HYPOGLYCEMIA PO PRN (23:45)
[2018-10-01] MEDS ORDERED: GLUCOSE 10 TABS/TUBE PO PRN (23:45)
[2018-10-01] MEDS ORDERED: POTASSIUM CHLORIDE 20 MEQ TABCR PO STA (23:48)
[2018-10-01] MEDS: OXYCODONE HCL IR 5 MG TAB (IMMEDIATE RELEASE) PO PRN (23:54)
[2018-10-01] MEDS: METOPROLOL TARTRATE 50 MG TAB PO SCH (23:56)
[2018-10-02] MEDS: TESTOSTERONE~ORDER AWAITING ACTION SCH ×4 (00:17→21:02)
[2018-10-02] MEDS: ACETAMINOPHEN 325 MG TAB PO PRN ×3 (01:41→15:26)
[2018-10-02 05:41] LABS: Basophils # (auto) 0.03 K/uL (0-0.2); Basophils % (auto) 0.4 %; Eosinophils # (auto) 0.14 K/uL (0-0.5); Eosinophils % (auto) 1.9 %; Hematocrit (blood only) 38.6 % (42-52); Hemoglobin 14.4 g/dL (14.0-18.0); Immature Granulocytes # (auto) 0.03 K/uL (0.00-0.02); Immature Granulocytes % (auto) 0.4 %; Lymphocytes # (auto) 2.69 K/uL (1.2-3.4); Lymphocytes % (auto) 35.7 %; Mean Corpuscular Hgb Conc 37.3 g/dL (32-36); Mean Corpuscular Volume 83.5 fL (80-100); Mean Platelet Volume 9.5 fL (7.4-10.4); Monocytes # (auto) 1.13 K/uL (0.11-0.59); Neutrophils # (auto) 3.51 K/uL (1.4-6.5); Neutrophils % (auto) 46.6 %; Platelet Count 175 K/uL (130-400); RDW Coefficient of Variation 12.4 % (11.5-14.5); RDW Standard Deviation 37.8 fL (36.4-46.3); Red Blood Count 4.62 M/uL (4.7-6.1); White Blood Count 7.53 K/uL (4.8-10.8)
[2018-10-02] MEDS: OXYCODONE HCL IR 5 MG TAB (IMMEDIATE RELEASE) PO PRN ×3 (05:45→17:50)
[2018-10-02 06:14] LABS: BUN Creatinine Ratio 13.7 (10-20); Calcium 8.4 mg/dl (8.5-10.1); Creatinine Clr Calc Pharmacy 86.5 ml/min; Est GFR (African American) 69.7; Est GFR (Non-African American) 60.1; Magnesium 2.4 mg/dl (1.8-2.4); Potassium 4.1 mmol/L (3.5-5.1)
[2018-10-02 06:19] LABS: Estimated Average Glucose 117 mg/dl; Hemoglobin A1C 5.7 % (4.5-5.6)
--- NOTE | 2018-10-02 07:06 | History and Physical Report ---
DATE OF ADMISSION: 10/01/2018 CHIEF COMPLAINT: Nausea. HISTORY OF PRESENT ILLNESS: This 48-year-old male with past medical history significant for hyperglycemia, hyperlipidemia, hypertension, GERD, BPH, generalized osteoarthritis of multiple sites, essential tremor, chronic use of opiates, history of iron deficiency anemia, bipolar disorder, posttraumatic stress disorder, low testosterone in a male, who presents with nausea. The patient says he is on pain medications, oxycodone 10 mg 6 times daily for a long time. He wants to taper the pain medications. He is taking pain medication because of his bilateral shoulder pains He has significant pain in his shoulder and he could not lift the shoulders up because of painful movements,. But he wanted to taper his pain meds by himself so he took the herb, called kratom which seemed to help with withdrawal, he started taking it about 10 days ago, but he was started feeling sick, nauseous and he started throw up since , but since last 2 days, he is only belching and dry heaving because of not eating much. Two days back, he stopped kratom and went back to his pain medication, but he started taking only 3 times daily. But his symptoms were not getting better so came to the ER, and in the ER, the blood pressure was 152/90 when he came in and he was given a dose of Klonopin and clonidine and labs were done which showed a sodium of 122 at which time we called for admission. The patient denies any diarrhea or constipation. He has normal movement today, it looked somewhat black because of taking a lot of Pepto-Bismol. Normal bladder movements. No blood in the urine. No burning micturitions. Has chronic shoulder pain. He had some chest discomfort that got resolved now. No shortness of breath, no cough, no fever, no chills, has headaches all over the head, no blurred vision, no earache, no runny nose, no sore throat, no difficulty swallowing. Poor appetite. Ambulating fine. No rash. No edema in lower extremity. Lives with his . Currently, his hemodynamics are stable. ALLERGIES: BUPROPION, GEMFIBROZIL, TAMSULOSIN, ALLOPURINOL, ARIPIPRAZOLE, COLCHICINE, FEBUXOSTAT, CALCIUM CHANNEL BLOCKERS. PAST MEDICAL HISTORY: As mentioned above. PAST SURGICAL HISTORY: Colonoscopy, EGD, laparoscopic cholecystectomy, repair of the left biceps long tendon rupture, repair of the right foot fascia, left shoulder surgery, left shoulder arthroscopy and debridement, and vasectomy. MEDICATIONS: The patient is on Zofran 8 mg every 6 hours p.r.n., Glucophage 500 mg p.o. b.i.d., omeprazole 40 mg p.o. daily, allopurinol 50 mg p.o. daily, lisinopril 40 mg p.o. daily, Motrin 800 mg p.r.n., vitamin D 1000 units p.o. daily, ferrous sulfate 325 mg p.o. daily, Lopressor 50 mg p.o. b.i.d., testosterone 60 mg topical in the skin daily, diclofenac sodium p.r.n., oxycodone 10 mg 6 times currently taking 3 times daily, Klonopin 0.5 mg p.o. daily p.r.n., Depakote ER 1500 mg daily, Latuda 40 mg p.o. daily. FAMILY HISTORY: Significant for: Father had arthritis, hypertension, lung disorder, ulcerative colitis. Sister has Behcet's disease. Mother has hypertension. Maternal grandfather had prostate cancer. Uncle has SC. SOCIAL HISTORY: Currently and lives with his . No smoking history. Snuffs tobacco. No alcohol, no drug use. REVIEW OF SYMPTOMS: As per HPI. Rest of review of systems is negative. PHYSICAL EXAMINATION: GENERAL: The patient is of moderate build, not in acute distress. VITAL SIGNS: Temperature 36.7, pulse rate 74, respiratory rate 18, blood pressure 117/68, oxygen 97% room air. HEENT: No pallor, no icterus. Pupils equal, round, and reactive to light. Extraocular muscles intact. NECK: No JVD, no neck masses, no carotid bruits. CARDIOVASCULAR: S1, S2 heard, regular rate and rhythm, no murmur, no gallop. RESPIRATORY SYSTEM: Normal AP diameter. No accessory muscle use. No wheezing, no crackles. ABDOMEN: Soft, bowel sounds present, nontender. No distention seen. No guarding, no rigidity. CENTRAL NERVOUS SYSTEM: Cranial nerves II-XII grossly intact. Nonfocal. EXTREMITIES: No edema, no erythema seen. Painful right shoulder movements bilaterally. LABORATORY DATA: WBC 9.9, hemoglobin 16.9, hematocrit 45.8, platelets 262. Sodium 122, potassium 3.6, chloride 90, bicarbonate 20, BUN 19, creatinine 1.4, serum glucose 118, serum osmolality 259, calcium 8.9, magnesium 2.0, total bilirubin 0.4, AST 49, ALT 87, alkaline phosphatase 102. Troponin I less than 0.015. Lipase 560. Urinalysis negative. Urine osmolality 255. Chest x-ray, negative chest. EKG: Normal sinus rhythm with a rate of 83, no significant change from previous EKG. ASSESSMENT AND PLAN: This is a 48-year-old male who presents with nausea and found to have hyponatremia. 1. Hyponatremia. Sodium of 122 in the ER. Urine osmolality is 255, serum osmolality 259, on hydrochlorothiazide at home which we will hold, was taking kratom, the herb for the last week. Discussed with nephrology, advised to fluid restriction of 1200 mL/day. BMP q. 6 hours and closely monitor the labs. 2. Chronic pain on oxycodone 10 mg 6 times daily. He is trying to taper himself. He tried kratom, but it did not work, so he started back on oxycodone 3 times daily where as he was taking it 6 times Daily before.And he is not feeling well. We will place him on oxycodone 4 times daily and consult pain management, to help with medication taper and monitor in tele floor for any withdrawal symptoms. 3. History of hypertension. Hold hydrochlorothiazide. Continue Lopressor. Monitor his blood pressure. 4. History of diabetes. Hold metformin, place insulin sliding scale. Follow HbA1c level. Follow the blood sugars in the hospital. 5. Gastroesophageal reflux disease. Continue PPI. 6. History of hyperlipidemia, on allopurinol 50 mg. Follows with rheumatology .. 7. History of bipolar disorder, history of posttraumatic stress disorder, on Depakote and Latuda which he will continue and also Klonopin p.r.n. for anxiety. 8. Elevated lipase 560. mostly non specific.Will follow repeat levels. 9. Deep venous thrombosis prophylaxis, sequential compression devices for now. 10. Disposition: Closely monitor in tele floor. Level 1 full code. MTDD
--- NOTE | 2018-10-02 07:41 | Nephrology Consultation ---
Date of Consultation October 02, 2018 Assessment & Plan (1) Hyponatremia with decreased serum osmolality: hyponatremia of unknown duration and without alarm sx on presentation such as slurred speech, MS changes, falls. this in setting of TZ and nsaid use but also w/ a hx of N/V for 3+ days in the 5-7 prior to presentation. DDX includes SIADH type process or volume depletion. his urine studies are not revealing at this time as to cause of low sNa. he had a 250 mL bolus NS in ER. Then after review of case w/ me and color grinder, pt had K repletion and was placed on FR 1.2 L daily. sodium has trended 122 >125 > 124. -cont FR -hold TZ, nsaids -ordered Trish> 33 -pt needs strict I/O; reinforced this w/ him; nursing also aware -cont q6h bmp -maintain eukalemia -will give another 500 mL NS at this time -- at this point favor volume depletion; b/c not sure will cont FR Present on Admission?: Yes (2) Hypertension: controlled at this time and even on lower side. currently on ACEI, on BB;continue prn clonidine if needed - hold diuretics such as TZ for now; -will stop acei as well given relative hypotension here today; acei can rarely contribute to low sNa as well Present on Admission?: Yes (3) Chronic pain disorder: per primary service; reduce/ avoid nsaids for now Present on Admission?: Yes (4) Acute renal failure: in the setting of a few days of N/V and poorer po intake; in the setting of less po intake w/ potentially nephrotoxic meds including nsaids, TZ diuretics, ACEI > prerenal versus ATN. his baseline creatinine in 2019 is 1.0- 1.1 as recently as 04/2018. -he remains on ACEI at this time; will stop it for now Present on Admission?: Yes History of Present Illness Reason for Consultation: hyponatremia Requesting Physician: Dr Sales Attending Physician: Mina Miranda MD History of Present Illness 48 y/o M whom I'm asked to see for hyponatremia after he was admitted overnight for management of poor po intake, uncontrolled N/v and dry heaves for the past week. PMH includes HTN, bipolar disorder, HL, chronic pain w/ narcotics dependence, anxiety, OA, hyperuricemia. He takes hctz and nsaids as outpt and has been doing so for several months, including recent days w/ less po intake. He states that this am he had the first solid food he has had since 09/25. He does not have a hx of hyponatremia. his baseilne creatinine is 0.9-1.0 as recently as 04/2018. He denies diarrhea, new or worrisome voiding sx, acute confusion (though notes his thought processes at work had been a bit slower recently), falls, focal numbness/weakness, slurred speech, edema, palpitations, sob. Allergies Allergy/AdvReac Type Severity Reaction Status Date / Time bupropion Allergy Severe headache, Verified 10/01/18 18:24 change mental status gemfibrozil Allergy Unknown decreased Verified 10/01/18 18:24 kidney function, muscle aches tamsulosin Allergy Unknown HEADACHES Verified 10/01/18 18:24 allopurinol AdvReac Severe Nausea and Verified 10/01/18 18:24 vomiting aripiprazole AdvReac Severe flicking Verified 10/01/18 18:24 tongue colchicine AdvReac Severe Nausea Verified 10/01/18 18:24 febuxostat [From Uloric] AdvReac Severe Nausea Verified 10/01/18 18:24 Calcium Channel Blocking AdvReac severe Verified 10/01/18 23:18 Agent Dilt swelling Calcium Channel Blocking AdvReac severe Verified 10/01/18 23:18 Agents-Dih swelling Home Medications Home Medications Medication Instructions Recorded Confirmed Type cholecalciferol (vitamin D3) 1,000 unit PO DAILY 04/08/18 10/01/18 History [Vitamin D3] divalproex [Depakote ER] 1,500 mg PO QPM 04/08/18 10/01/18 History ferrous sulfate 325 mg PO DAILY 04/08/18 10/01/18 History hydrochlorothiazide 25 mg PO QPM 04/08/18 10/01/18 History lisinopril [Zestril] 40 mg PO QPM 04/08/18 10/01/18 History lurasidone [Latuda] 20 mg PO QPM 04/08/18 10/01/18 History metformin [Glucophage] 500 mg PO BID 04/08/18 10/01/18 History metoprolol tartrate [Lopressor] 50 mg PO BID 04/08/18 10/01/18 History omeprazole 40 mg PO QPM 04/08/18 10/01/18 History oxycodone 10 mg PO Q6H PRN 04/08/18 10/01/18 History allopurinol 50 mg PO DAILY 10/01/18 10/01/18 History clonazepam 0.5 g PO DAILY PRN 10/01/18 10/01/18 History ondansetron HCl 8 mg PO DIRECTED PRN 10/01/18 10/01/18 History testosterone 10 mg TOPICAL QPM 10/01/18 10/01/18 History Patient History Medical History Acute renal failure Chronic pain disorder Hyponatremia with decreased serum osmolality Opiate withdrawal (Acute) Hypertension (Chronic) Biliary colic (Chronic) Hypertensive urgency (Acute 01/11/13) Hypertension (Acute) Headache (Acute) Anxiety (Acute) Bipolar disorder (Chronic) GERD (gastroesophageal reflux disease) (Chronic) Surgical History S/P cholecystectomy (Chronic) Social History Preferred Language: Indonesian Communication Ability: Effective Visual Impairment: No Limitations Hearing Ability: Normal Fuel Handler Required: No Beliefs That Will Affect Care: None Current Living Situation: Spouse Other Information That Helps Us Care for You: No Feels Safe at Home: Yes Safety Concerns: Feels Safe At This Time Smoking Status: Former smoker Hx Alcohol Use: Yes Alcohol type: beer Hx Substance Use: Yes substance use type: painkillers Last Used Substance: Hours (ago) Review of Systems Review of Systems: All systems reviewed & are unremarkable except as noted in HPI & below Physical Exam Constitutional: well developed and well nourished on RA nad maneuvers readily for exam Eyes: EOM intact bilaterally ENMT: Ears: no external ear abnormality Nose: no external nose abnormality Mouth: + dry oral mucous membranes Neck: no nuchal rigidity Respiratory: normal respiratory effort Auscultation: + diminished lung sounds Cardiovascular: RRR, no murmur, no edema Gastrointestinal (Abdomen): Inspection/Auscultation: normal bowel sounds Percussion/Palpation: abdomen soft; abdomen nontender Musculoskeletal: Extremities: strength 5/5 throughout Skin: no rashes, warm and dry Neurologic: tan, fluent speech, no tremor Psychiatric: Orientation: alert and oriented x 3 Affect: + anxious affect Insight: good insight Judgement: good judgement Genitourinary: no rodgers Results & Data Vital Signs (Past 12 Hours) Vital Signs Temp Pulse Pulse Pulse Resp BP BP 10/02/18 07:06 36.7 C 68 20 105/72 10/02/18 03:36 36.8 C 60 15 99/62 L 10/01/18 23:15 36.7 C 65 16 10/01/18 23:12 36.7 C 65 16 10/01/18 22:39 67 14 92/41 L 10/01/18 21:19 75 18 BP Pulse Ox Pulse Ox 10/02/18 07:06 97 10/02/18 03:36 97 10/01/18 23:15 122/67 98 10/01/18 23:12 122/67 98 98 10/01/18 22:39 95 10/01/18 21:19 117/68 97
[2018-10-02] MEDS: CHOLECALCIFEROL 1,000 UNITS TAB PO SCH (08:18)
[2018-10-02] MEDS: METOPROLOL TARTRATE 50 MG TAB PO SCH ×2 (08:28→19:58)
[2018-10-02] MEDS ORDERED: FERROUS SULFATE 325 MG TAB PO SCH (09:00)
[2018-10-02] MEDS ORDERED: ALLOPURINOL 100 MG TAB PO SCH (09:00)
[2018-10-02] MEDS: INSULIN ASPART 100 UNITS/ML 3 ML PEN SC SCH ×4 (10:01→20:47)
[2018-10-02 12:29] LABS: BUN Creatinine Ratio 14.5 (10-20); Calcium 8.7 mg/dl (8.5-10.1); Creatinine Clr Calc Pharmacy 92.6 ml/min; Est GFR (African American) 75.7; Est GFR (Non-African American) 65.3; Potassium 4.5 mmol/L (3.5-5.1)
--- NOTE | 2018-10-02 13:29 | Pain Management Consultation ---
Date of Consultation October 02, 2018 Assessment & Plan (1) Opiate dependence: Present on Admission?: Yes (2) Acute renal failure: Present on Admission?: Yes (3) Chronic pain disorder: Present on Admission?: Yes (4) Hyponatremia with decreased serum osmolality: Present on Admission?: Yes (5) Bipolar disorder: Present on Admission?: Yes (6) Anxiety disorder: 1. Patient presenting with nausea and headaches likely as byproduct of Kratom use combined with diminished opiate use although no overt withdrawal. Concerns were discussed regarding Kratom use with the patient and is was recommend he discontinue use of Kratom. 2. It was recommended for patient to discontinue opiate therapy due to lack of indication for treatment of his chronic shoulder pain. Consideration of rehab setting was discussed, but he deferred. Would recommend he discuss weaning schedule with his PCP (Dr. Estevez) or become involved with kody RizoD for further recommendations. Would limit use to OxyIR 30-40 mg per day at this time as this will likely avoid any withdrawal symptoms until he can be evaluated for outpatient weaning protocol is put in place in the outpatient setting. Consider use of clonidine and imodium should any withdrawal symptoms arise. 3. Would not recommend concomitant use of benzodiazepines with opiates 4. Would recommend patient be discharged with Narcan 5. Close follow-up with Behavioral health Thank you for allowing us to participate in care of this patient. History of Present Illness Reason for Consultation: Opioid dependency Requesting Physician: Salazar Sales MD Attending Physician: Mina Miranda MD History of Present Illness Mr. Brown is a 48 year old white male with past medical history significant for hyperglycemia, opioid dependency, chronic bilateral shoulder pain, hyperlipidemia, hypertension, GERD, BPH, PTSD, bipolar disorder, anxiety and hypogonadism. Patient was admitted due to nausea and headache, which he relates to a recent desire to reduce opiate dependency. The patient reports history of chronic opiate use with OxyIR 10 mg up to 6 times daily. He reports he has been using opiates since the time of his first shoulder surgery on the left in 2006 timeframe. He underwent a second left shoulder surgery in 2007 without improvement in pain complaints and then a right shoulder repair in 2016. Over the past 4 years he reports use of 50-60 mg of oxycodone daily. He reported a desire to discontinue opiates recently and stopped his OxyIR in favor of OTC Kratom 3 grams q3-4 hours 10 days ago. He developed significant nausea and headaches, but denied diarrhea. He reported that his shoulder pain was moderately well controlled on Kratom, but he decided to discontinue Kratom and resume OxyIR 3 days ago at 30 mg daily. Due to his nausea, headaches and pain he came to ER. Upon admission he was found to hyponatremic with ARF and is followed by Nephrology. He expresses a desire to reduce his opiate therapy. He does follow with psychiatry in the outpatient setting. He denies axial neck pain or cervical radicular pain. He is no longer followed regularly by Ortho. His opiates are prescribed by Destinee MCCLELLAN at [facility], but he reportedly "stopped going there". He denies use of illicit drugs or alcohol. Patient has no significant headache today and continues to deny diarrhea. The patient has no further constitutional complaints. Plan of care discussed with Dr. Faustin. Pain Assessment Pain scale - at its best (0-10): 4 Pain scale - at its worst (0-10): 8 Allergies Allergy/AdvReac Type Severity Reaction Status Date / Time bupropion Allergy Severe headache, Verified 10/01/18 18:24 change mental status gemfibrozil Allergy Unknown decreased Verified 10/01/18 18:24 kidney function, muscle aches tamsulosin Allergy Unknown HEADACHES Verified 10/01/18 18:24 allopurinol AdvReac Severe Nausea and Verified 10/01/18 18:24 vomiting aripiprazole AdvReac Severe flicking Verified 10/01/18 18:24 tongue colchicine AdvReac Severe Nausea Verified 10/01/18 18:24 febuxostat [From Uloric] AdvReac Severe Nausea Verified 10/01/18 18:24 Calcium Channel Blocking AdvReac severe Verified 10/01/18 23:18 Agent Dilt swelling Calcium Channel Blocking AdvReac severe Verified 10/01/18 23:18 Agents-Dih swelling Home Medications Home Medications Medication Instructions Recorded Confirmed Type cholecalciferol (vitamin D3) 1,000 unit PO DAILY 04/08/18 10/01/18 History [Vitamin D3] divalproex [Depakote ER] 1,500 mg PO QPM 04/08/18 10/01/18 History ferrous sulfate 325 mg PO DAILY 04/08/18 10/01/18 History hydrochlorothiazide 25 mg PO QPM 04/08/18 10/01/18 History lisinopril [Zestril] 40 mg PO QPM 04/08/18 10/01/18 History lurasidone [Latuda] 20 mg PO QPM 04/08/18 10/01/18 History metformin [Glucophage] 500 mg PO BID 04/08/18 10/01/18 History metoprolol tartrate [Lopressor] 50 mg PO BID 04/08/18 10/01/18 History omeprazole 40 mg PO QPM 04/08/18 10/01/18 History oxycodone 10 mg PO Q6H PRN 04/08/18 10/01/18 History allopurinol 50 mg PO DAILY 10/01/18 10/01/18 History clonazepam 0.5 g PO DAILY PRN 10/01/18 10/01/18 History ondansetron HCl 8 mg PO DIRECTED PRN 10/01/18 10/01/18 History testosterone 10 mg TOPICAL QPM 10/01/18 10/01/18 History Pain History Pain Location Full Body Front + Back: 1. Right shoulder 2. Left shoulder Pain Intensity Pain scale - at its best (0-10): 4 Pain scale - at its worst (0-10): 8 Timing Timing: all day Character Pain character: aching, sharp and intermittent Activity Factors Exacerbated by: other (movement of shoulders) Patient History Medical History Acute renal failure Chronic pain disorder Hyponatremia with decreased serum osmolality Opiate withdrawal (Acute) Hypertension (Chronic) Biliary colic (Chronic) Hypertensive urgency (Acute 01/11/13) Hypertension (Acute) Headache (Acute) Anxiety (Acute) Bipolar disorder (Chronic) GERD (gastroesophageal reflux disease) (Chronic) Surgical History S/P cholecystectomy (Chronic) Social History Preferred Language: Spanish Communication Ability: Effective Visual Impairment: No Limitations Hearing Ability: Normal Otologist Required: No Beliefs That Will Affect Care: None Current Living Situation: Spouse Other Information That Helps Us Care for You: No Feels Safe at Home: Yes Safety Concerns: Feels Safe At This Time Smoking Status: Former smoker Hx Alcohol Use: Yes Alcohol type: beer Hx Substance Use: Yes substance use type: painkillers Last Used Substance: Hours (ago) Physical Exam Physical Exam: General: Patient sitting upon entering the room in NAD. Speech and thought process appropriate. Patient appears moderately anxious. Cognition intact. Head: NC, AT. Neck: FROM without limitation. Shoulders: Tender to palpation throughout shoulder region, non-focal. Discomfort throughout ROM which is limited. Upper extremities: Hand electronics production supervisor 5/5. Sensation intact without deficits. Neuro: CN grossly intact. Ambulation not witnessed.
[2018-10-02] MEDS ORDERED: SODIUM CHLORIDE 0.9% 500 ML IV STA (15:00)
[2018-10-02] MEDS ORDERED: Nursing to Pharmacy Communication ONE (17:30)
[2018-10-02] MEDS: PANTOprazole 40 MG TAB PO SCH (19:57)
[2018-10-02] MEDS: LURASIDONE HCL 40 MG TAB PO SCH (19:58)
[2018-10-02] MEDS: DIVALPROEX EXTENDED RELEASE 500 MG TAB PO SCH (19:59)
[2018-10-02 20:47] LABS: Calcium 8.8 mg/dl (8.5-10.1); Creatinine Clr Calc Pharmacy 89.1 ml/min; Est GFR (African American) 72.2; Est GFR (Non-African American) 62.3; Potassium 4.2 mmol/L (3.5-5.1)
--- NOTE | 2018-10-02 20:56 | Hospitalist Progress Note ---
Date of Service October 02, 2018 Assessment & Plan (1) Hyponatremia with decreased serum osmolality: Serum sodium 122 at time of admission. Nephrology consulted. Hyponatremia attributed to combination of hydrochlorothiazide therapy and recent nausea and vomiting. Hydrochlorothiazide discontinued. Fluid restriction. Follow. (2) Acute renal failure: Serum creatinine 1.41 at time of admission compared to baseline of around 1.0. Acute kidney injury probably secondary to recent nausea and vomiting. Received IV fluids. Creatinine today = 1.37. Avoid nonsteroidal anti-inflammatory drugs if possible. Follow. (3) Nausea & vomiting: Recent nausea and vomiting, possibly secondary to kratom. Kratom held. Symptoms improved. (4) Hypertension: Hold hydrochlorothiazide secondary to hyponatremia. Continue metoprolol. (5) Diabetes mellitus type 2, controlled: Managed with metformin. Hold metformin during hospital stay. Hemoglobin A1c 5.7. Fasting blood sugar this morning = 99. Insulin coverage as necessary. (6) Gout: History of gout, but intolerant of all agents that have been tried. Discontinuation of hydrochlorothiazide may help with hyperuricemia. (7) Bipolar disorder: Continue divalproex and lurasidone. (8) Chronic pain disorder: Chronic pain primarily secondary to week problems with bilateral shoulders. As received oxycodone as an outpatient. Was trying to wean off oxycodone and using kratom instead. Kratom may have been causing nausea and vomiting. Seen in consultation by Pain Management. Outpatient weaning of oxycodone recommended. (9) DVT prophylaxis: SCD's ordered. Ambulate. (10) Discharge planning issues: Anticipated discharge to home. Family Medicine follow-up with Dr. Estevez. Subjective Recheck for multiple problems. Patient seen in their room around 16:20. visiting. Nausea and vomiting resolved. Tolerated solid food for breakfast and lunch. Chronic bilateral shoulder pain. Review of Systems: Constitutional- no fever. Cardiac- no chest pain. Pulmonary- no cough or SOB. GI- no nausea, vomiting, diarrhea, melena, hematochezia. - no urinary symptoms. Otherwise, as noted above. Physical Exam Constitutional: no acute distress Respiratory: no respiratory distress Auscultation: lungs clear to auscultation bilaterally Cardiovascular: Rate/Rhythm: regular rate and regular rhythm Heart Sounds: no gallop, no murmur and no cardiac rub Vessels: no JVD Extremities: no calf tenderness and no edema Gastrointestinal (Abdomen): normal bowel sounds, soft, nontender, no hepatosplenomegaly Skin: no rashes, warm and dry Psychiatric: Orientation: alert and oriented x 3 Results & Data Vital Signs (Past 12 Hours) Vital Signs Temp Pulse Pulse Resp BP BP Pulse Ox 10/02/18 19:42 36.8 C 75 16 126/78 96 10/02/18 16:00 70 10/02/18 15:21 36.7 C 69 17 110/72 95 10/02/18 10:34 36.8 C 63 19 106/71 95 Laboratory Results Laboratory Results - last 24 hr 10/02/18 10/02/18 10/02/18 05:25 05:25 05:25 WBC 7.53 RBC 4.62 L Hgb 14.4 Hct 38.6 L MCV 83.5 MCH 31.2 MCHC 37.3 H RDW Std Deviation 37.8 RDW Coeff of Tamiko 12.4 Plt Count 175 MPV 9.5 Immature Gran % (Auto) 0.4 Neut % (Auto) 46.6 Lymph % (Auto) 35.7 George % (Auto) 15.0 Eos % (Auto) 1.9 Baso % (Auto) 0.4 Immature Gran # (Auto) 0.03 H Neut # (Auto) 3.51 Lymph # (Auto) 2.69 George # (Auto) 1.13 H Eos # (Auto) 0.14 Baso # (Auto) 0.03 Sodium 125 L Potassium 4.1 Chloride 92 L Carbon Dioxide 24 Anion Gap 9.0 BUN 19 H Creatinine 1.37 Est Cr Clr Drug Dosing 86.5 Est GFR ( Amer) 69.7 Est GFR (Non-Af Amer) 60.1 BUN/Creatinine Ratio 13.7 Glucose 89 POC Glucose Estimat Average Glucose 117 Hemoglobin A1c 5.7 H Calcium 8.4 L Magnesium 2.4 Lipase 578 H Ur Random Sodium 10/02/18 10/02/18 10/02/18 07:32 08:20 11:21 WBC RBC Hgb Hct MCV MCH MCHC RDW Std Deviation RDW Coeff of Tmaiko Plt Count MPV Immature Gran % (Auto) Neut % (Auto) Lymph % (Auto) George % (Auto) Eos % (Auto) Baso % (Auto) Immature Gran # (Auto) Neut # (Auto) Lymph # (Auto) George # (Auto) Eos # (Auto) Baso # (Auto) Sodium Potassium Chloride Carbon Dioxide Anion Gap BUN Creatinine Est Cr Clr Drug Dosing Est GFR ( Amer) Est GFR (Non-Af Amer) BUN/Creatinine Ratio Glucose POC Glucose 99 101 H Estimat Average Glucose Hemoglobin A1c Calcium Magnesium Lipase Ur Random Sodium 33 10/02/18 10/02/18 10/02/18 11:44 16:46 20:18 WBC RBC Hgb Hct MCV MCH MCHC RDW Std Deviation RDW Coeff of Tamiko Plt Count MPV Immature Gran % (Auto) Neut % (Auto) Lymph % (Auto) George % (Auto) Eos % (Auto) Baso % (Auto) Immature Gran # (Auto) Neut # (Auto) Lymph # (Auto) George # (Auto) Eos # (Auto) Baso # (Auto) Sodium 124 L 129 L Potassium 4.5 4.2 Chloride 93 L 97 L Carbon Dioxide 24 25 Anion Gap 8.0 7.0 BUN 19 H 19 H Creatinine 1.28 1.33 Est Cr Clr Drug Dosing 92.6 89.1 Est GFR ( Amer) 75.7 72.2 Est GFR (Non-Af Amer) 65.3 62.3 BUN/Creatinine Ratio 14.5 14.0 Glucose 94 94 POC Glucose 99 Estimat Average Glucose Hemoglobin A1c Calcium 8.7 8.8 Magnesium Lipase Ur Random Sodium 10/02/18 10/02/18 20:32 22:51 WBC RBC Hgb Hct MCV MCH MCHC RDW Std Deviation RDW Coeff of Tamiko Plt Count MPV Immature Gran % (Auto) Neut % (Auto) Lymph % (Auto) George % (Auto) Eos % (Auto) Baso % (Auto) Immature Gran # (Auto) Neut # (Auto) Lymph # (Auto) George # (Auto) Eos # (Auto) Baso # (Auto) Sodium 131 L Potassium 4.4 Chloride 96 L Carbon Dioxide 27 Anion Gap 8.0 BUN 19 H Creatinine 1.29 Est Cr Clr Drug Dosing 91.9 Est GFR ( Amer) 75.0 Est GFR (Non-Af Amer) 64.7 BUN/Creatinine Ratio 14.4 Glucose 83 POC Glucose 93 Estimat Average Glucose Hemoglobin A1c Calcium 8.7 Magnesium Lipase Ur Random Sodium
[2018-10-02] MEDS ORDERED: NON-FORMULARY MEDICATION (Omeprazole 40 MG) PO SCH (21:00)
[2018-10-02] MEDS ORDERED: TESTOSTERONE 10 MG TOP SCH (21:00)
[2018-10-02] MEDS ORDERED: DIVALPROEX EXTENDED RELEASE 500 MG TAB PO SCH (21:00)
[2018-10-02] MEDS ORDERED: LURASIDONE 20 MG PO SCH (21:00)
[2018-10-02] MEDS ORDERED: LISINOPRIL 40 MG TAB PO SCH (21:00)
[2018-10-02 23:18] LABS: BUN Creatinine Ratio 14.4 (10-20); Calcium 8.7 mg/dl (8.5-10.1); Creatinine Clr Calc Pharmacy 91.9 ml/min; Est GFR (Non-African American) 64.7; Potassium 4.4 mmol/L (3.5-5.1)
[2018-10-03] MEDS: OXYCODONE HCL IR 5 MG TAB (IMMEDIATE RELEASE) PO PRN ×3 (03:24→16:12)
[2018-10-03] MEDS: ACETAMINOPHEN 325 MG TAB PO PRN ×2 (04:00→17:29)
[2018-10-03] MEDS: METOPROLOL TARTRATE 50 MG TAB PO SCH ×2 (09:41→20:25)
[2018-10-03] MEDS: CHOLECALCIFEROL 1,000 UNITS TAB PO SCH (09:42)
[2018-10-03] MEDS: INSULIN ASPART 100 UNITS/ML 3 ML PEN SC SCH ×4 (09:44→21:07)
--- NOTE | 2018-10-03 09:59 | Nephrology Progress Note ---
Date of Service October 03, 2018 Assessment & Plan (1) Hyponatremia with decreased serum osmolality: hyponatremia of unknown duration and without alarm sx on presentation such as slurred speech, MS changes, falls. this in setting of TZ and nsaid use but also w/ a hx of N/V for 3+ days in the 5-7 prior to presentation. DDX includes SIADH type process or volume depletion. his urine studies are not revealing as to cause of low sNa. he had a 250 mL bolus NS in ER. Then after review of case w/ me and production machine operator, pt had K repletion and was placed on FR 1.2 L daily. sodium has trended 122 >125 > 124. then gave 500 mL ns yesterday >> pt with sNa today 131, and 2L negative uop -cont FR for now -hold TZ, nsaids -cont strict I/O -bmp ordered/pending for this am -maintain eukalemia (2) Hypertension: controlled at this time and even on lower side. currently on BB; continue prn clonidine if needed - hold diuretics such as TZ and acei for now (3) Chronic pain disorder: per primary service; reduce/ avoid nsaids for now (4) Acute renal failure: in the setting of a few days of N/V and poorer po intake; in the setting of less po intake w/ potentially nephrotoxic meds including nsaids, TZ diuretics, ACEI > prerenal versus ATN. his baseline creatinine in 2019 is 1.0- 1.1 as recently as 04/2018. -slow improvement as of last evening; f/u labs today and cont to hold acei/tz Physical Exam Constitutional: well developed and well nourished Eyes: EOM intact bilaterally ENMT: Ears: no external ear abnormality Nose: no external nose abnormality Mouth: + dry oral mucous membranes Neck: no nuchal rigidity Respiratory: normal respiratory effort Auscultation: + diminished lung sounds Cardiovascular: RRR, no murmur, no edema Gastrointestinal (Abdomen): Inspection/Auscultation: normal bowel sounds Percussion/Palpation: abdomen soft; abdomen nontender Musculoskeletal: Extremities: strength 5/5 throughout Skin: no rashes, warm and dry Psychiatric: Orientation: alert and oriented x 3 Affect: + anxious affect Insight: good insight Judgement: good judgement Results & Data Vital Signs (Past 12 Hours) Vital Signs Temp Pulse Resp BP BP Pulse Ox 10/03/18 07:39 37.0 C 54 L 18 133/68 97 10/03/18 03:50 36.5 C 64 18 130/84 97 10/02/18 23:09 36.6 C 63 18 100/61 98 Laboratory Results Abnormal lab results 10/02/18 10/02/18 10/02/18 Range/Units 11:21 11:44 20:18 Sodium 124 L 129 L (136-145) mmol/L Chloride 93 L 97 L (98-107) mmol/L BUN 19 H 19 H (7-18) mg/dl POC Glucose 101 H (70-99) 10/02/18 10/03/18 Range/Units 22:51 07:34 Sodium 131 L (136-145) mmol/L Chloride 96 L (98-107) mmol/L BUN 19 H (7-18) mg/dl POC Glucose 101 H (70-99)
[2018-10-03] MEDS: TESTOSTERONE~ORDER AWAITING ACTION SCH (10:01)
[2018-10-03 10:53] LABS: BUN Creatinine Ratio 12.5 (10-20); Calcium 8.8 mg/dl (8.5-10.1); Est GFR (African American) 79.4; Est GFR (Non-African American) 68.5; Potassium 4.8 mmol/L (3.5-5.1)
[2018-10-03] MEDS: SODIUM CHLORIDE 0.9% 500 ML IV SCH (11:30)
[2018-10-03] MEDS ORDERED: clonazePAM 0.5 MG TAB PO PRN (11:40)
[2018-10-03 17:20] LABS: BUN Creatinine Ratio 14.8 (10-20); Calcium 9.3 mg/dl (8.5-10.1); Creatinine Clr Calc Pharmacy 99.9 ml/min; Est GFR (African American) 84.3; Est GFR (Non-African American) 72.8; Potassium 4.7 mmol/L (3.5-5.1)
[2018-10-03] MEDS: DIVALPROEX EXTENDED RELEASE 500 MG TAB PO SCH (20:23)
[2018-10-03] MEDS: LURASIDONE HCL 40 MG TAB PO SCH (20:24)
[2018-10-03] MEDS: PANTOprazole 40 MG TAB PO SCH (20:26)
[2018-10-03] MEDS ORDERED: TESTOSTERONE EXT SCH ×3 (21:00)
[2018-10-03] MEDS ORDERED: [UNRECOGNIZED DRUG - OTHER] EXT SCH ×2 (21:00)
--- NOTE | 2018-10-03 22:30 | Hospitalist Progress Note ---
Date of Service October 03, 2018 Assessment & Plan (1) Hyponatremia with decreased serum osmolality: Serum sodium 122 at time of admission. Nephrology consulted. Hyponatremia attributed to combination of hydrochlorothiazide therapy and recent nausea and vomiting. Hydrochlorothiazide discontinued. Na today = 130. Continue fluid restriction. Follow. (2) Acute renal failure: Serum creatinine 1.41 at time of admission compared to baseline of around 1.0. Acute kidney injury probably secondary to recent nausea and vomiting. Received IV fluids. Creatinine today = 1.17. Avoid nonsteroidal anti-inflammatory drugs if possible. Follow. (3) Nausea & vomiting: Recent nausea and vomiting, possibly secondary to kratom. Kratom held. Symptoms improved. (4) Hypertension: Holding hydrochlorothiazide and lisinopril secondary to hyponatremia. BP this morining 133/68. Continue metoprolol. (5) Diabetes mellitus type 2, controlled: Managed with metformin. Hold metformin during hospital stay. Hemoglobin A1c 5.7. Fasting blood sugar this morning = 101. Insulin coverage as necessary. (6) Gout: History of gout, but intolerant of all agents that have been tried. Discontinuation of hydrochlorothiazide may help with hyperuricemia. (7) Bipolar disorder: Continue divalproex and lurasidone. (8) Chronic pain disorder: Chronic pain primarily secondary to week problems with bilateral shoulders. As received oxycodone as an outpatient. Was trying to wean off oxycodone and using kratom instead. Kratom may have been causing nausea and vomiting. Seen in consultation by Pain Management. Outpatient weaning of oxycodone recommended- will refer to [facility]. (9) DVT prophylaxis: SCD's ordered. Ambulate. (10) Discharge planning issues: Anticipated discharge to home. Family Medicine follow-up with Dr. Estevez. Subjective Recheck for multiple problems. Patient seen in their room around 16:15. Nausea and vomiting resolved. Tolerating diet. Chronic bilateral shoulder pain. Review of Systems: Constitutional- no fever. Cardiac- no chest pain. Pulmonary- no cough or SOB. GI- no nausea, vomiting, diarrhea, melena, hematochezia. - no urinary symptoms. Otherwise, as noted above. Physical Exam Constitutional: no acute distress Respiratory: no respiratory distress Auscultation: lungs clear to auscultation bilaterally Cardiovascular: Rate/Rhythm: regular rate and regular rhythm Heart Sounds: no gallop, no murmur and no cardiac rub Vessels: no JVD Extremities: no calf tenderness and no edema Gastrointestinal (Abdomen): normal bowel sounds, soft, nontender, no hepatosplenomegaly Skin: no rashes, warm and dry Psychiatric: Orientation: alert and oriented x 3 Results & Data Vital Signs (Past 12 Hours) Vital Signs Temp Pulse Resp BP BP Pulse Ox 10/03/18 19:27 36.8 C 95 H 18 143/93 H 97 10/03/18 15:28 37.0 C 93 H 17 145/91 H 96 10/03/18 11:44 37.0 C 61 20 139/76 94 Laboratory Results Laboratory Results - last 24 hr 10/02/18 10/03/18 10/03/18 22:51 07:34 10:11 Sodium 131 L 129 L Potassium 4.4 4.8 Chloride 96 L 97 L Carbon Dioxide 27 26 Anion Gap 8.0 6.0 BUN 19 H 15 Creatinine 1.29 1.23 Est Cr Clr Drug Dosing 91.9 95.0 Est GFR ( Amer) 75.0 79.4 Est GFR (Non-Af Amer) 64.7 68.5 BUN/Creatinine Ratio 14.4 12.5 Glucose 83 102 H POC Glucose 101 H Calcium 8.7 8.8 10/03/18 10/03/18 10/03/18 11:22 16:54 20:54 Sodium 130 L Potassium 4.7 Chloride 99 Carbon Dioxide 24 Anion Gap 7.0 BUN 17 Creatinine 1.17 Est Cr Clr Drug Dosing 99.9 Est GFR ( Amer) 84.3 Est GFR (Non-Af Amer) 72.8 BUN/Creatinine Ratio 14.8 Glucose 106 H POC Glucose 128 H 97 Calcium 9.3
[2018-10-04] MEDS: OXYCODONE HCL IR 5 MG TAB (IMMEDIATE RELEASE) PO PRN ×3 (02:01→14:21)
[2018-10-04 06:35] LABS: Calcium 9.1 mg/dl (8.5-10.1); Creatinine Clr Calc Pharmacy 109.2 ml/min; Est GFR (Non-African American) 81.1; Potassium 4.5 mmol/L (3.5-5.1)
[2018-10-04] MEDS: SODIUM CHLORIDE 0.9% 500 ML IV SCH (07:10)
[2018-10-04] MEDS: METOPROLOL TARTRATE 50 MG TAB PO SCH (08:09)
[2018-10-04] MEDS: INSULIN ASPART 100 UNITS/ML 3 ML PEN SC SCH ×2 (08:09→12:04)
[2018-10-04] MEDS: CHOLECALCIFEROL 1,000 UNITS TAB PO SCH (08:09)
[2018-10-04] MEDS: ACETAMINOPHEN 325 MG TAB PO PRN ×2 (08:14→13:29)
--- NOTE | 2018-10-04 13:46 | Nephrology Progress Note ---
Date of Service October 04, 2018 Assessment & Plan (1) Hyponatremia with decreased serum osmolality: hyponatremia of unknown duration and without alarm sx on presentation such as slurred speech, MS changes, falls. this in setting of TZ and nsaid use but also w/ a hx of N/V for 3+ days in the 5-7 prior to presentation. DDX includes SIADH type process or volume depletion. his urine studies are not revealing as to cause of low sNa. he had a 250 mL bolus NS in ER. Then after review of case w/ me and trial paralegal, pt had K repletion and was placed on FR 1.2 L daily. sodium has trended 122 >125 > 124. then gave 500 mL ns yesterday >> pt with sNa today 133, and 1.5L negative uop -cont FR for now -hold TZ, nsaids -cont strict I/O -maintain eukalemia From a renal standpoint he is appropriate for d/c: -continue 1.8L FR including after d/c until sNa is wnl -recheck bmp at f/u appt w/ PCP -hold hctz at d/c if possible as well as nsaids -recommend f/u w/ me in CKD clinic 6-8 wks after d/c >> to f/u on low Na, on HTN, on stone hx (2) Hypertension: controlled at this time though higher today than yesterday. currently on BB; continue prn clonidine if needed - hold diuretics such as TZ -resume routine OP acei in am 8/3 (3) Chronic pain disorder: per primary service; reduce/ avoid nsaids for now (4) Acute renal failure: resolved; prerenal in the setting of a few days of N/V and poorer po intake; in the setting of less po intake w/ potentially nephrotoxic meds including nsaids, TZ diuretics, ACEI > prerenal versus ATN. his baseline creatinine in 2019 is 1.0-1.1 as recently as 04/2018. -mgt as above Subjective some bL shoulder pain today; no further n/v or issues tolerating po today; denies edema, sob, voiding concerns; + hx of large stone; some low back pain he attrib to stone Review of Systems Review of Systems: All systems reviewed & are unremarkable except as noted in HPI & below Physical Exam Constitutional: well developed and well nourished amb w/o asst, on ra Eyes: EOM intact bilaterally ENMT: Ears: no external ear abnormality Nose: no external nose abnormality Mouth: + dry oral mucous membranes Neck: no nuchal rigidity Respiratory: normal respiratory effort Auscultation: + diminished lung sounds Cardiovascular: RRR, no murmur, no edema Gastrointestinal (Abdomen): Inspection/Auscultation: normal bowel sounds Percussion/Palpation: abdomen soft; abdomen nontender Musculoskeletal: Extremities: strength 5/5 throughout Skin: no rashes, warm and dry Neurologic: tan, fluent speech, no tremor Psychiatric: Orientation: alert and oriented x 3 Affect: + anxious affect Insight: good insight Judgement: good judgement Results & Data Vital Signs (Past 12 Hours) Vital Signs Temp Pulse Pulse Resp BP BP Pulse Ox 10/04/18 11:41 36.8 C 60 22 144/92 H 98 10/04/18 07:35 73 10/04/18 07:12 36.5 C 76 22 121/84 97 10/04/18 03:40 36.7 C 68 20 123/79 98 Laboratory Results Abnormal lab results 10/03/18 10/04/18 10/04/18 Range/Units 16:54 05:33 07:20 Sodium 130 L 133 L (136-145) mmol/L Glucose 106 H (70-99) mg/dl POC Glucose 137 H (70-99) 10/04/18 Range/Units 11:20 Sodium (136-145) mmol/L Glucose (70-99) mg/dl POC Glucose 125 H (70-99)
--- NOTE | 2018-10-05 08:06 | Hospitalist Progress Note ---
Date of Service October 04, 2018 Assessment & Plan (1) Hyponatremia with decreased serum osmolality: Serum sodium 122 at time of admission. Nephrology consulted. Hyponatremia attributed to combination of hydrochlorothiazide therapy and recent nausea and vomiting +/- possible SIADH from meds. Hydrochlorothiazide discontinued. Na today = 133. Continue 1800 ml fluid restriction. Follow. (2) Acute renal failure: Serum creatinine 1.41 at time of admission compared to baseline of around 1.0. Acute kidney injury probably secondary to recent nausea and vomiting. Received IV fluids. Creatinine today = 1.07. Avoid nonsteroidal anti-inflammatory drugs if possible. Follow. (3) Nausea & vomiting: Recent nausea and vomiting, possibly secondary to kratom or narcotic withdrawal from rapid tapering of oxycodone. Kratom stopped. FeSO4 held. Symptoms improved. (4) Hypertension: Held hydrochlorothiazide and lisinopril secondary to hyponatremia. BP's today 121/84, 144/92. Continue metoprolol. Resume lisinopril at reduced dose of 5 mg daily pending recheck in clinic. Follow and titrate Rx. (5) Diabetes mellitus type 2, controlled: Managed with metformin. Held metformin during hospital stay. Hemoglobin A1c 5.7. Fasting blood sugar this morning = 137. Received insulin coverage as necessary. (6) Gout: History of gout, but intolerant of all agents that have been tried including recently prescribed low dose allopurinol. Discontinuation of hydrochlorothiazide may help with hyperuricemia. (7) Bipolar disorder: Continue divalproex and lurasidone. (8) Chronic pain disorder: Chronic pain primarily secondary to week problems with bilateral shoulders. As received oxycodone as an outpatient. Was trying to wean off oxycodone and using kratom instead. Kratom may have been causing nausea and vomiting. Seen in consultation by Pain Management. Outpatient weaning of oxycodone recommended- will refer to [facility]. PDMP data reviewed and discussed with patient and spouse. Was given Rx for oxycodone 10 mg tabs # 84 on 09/19/18. Pt and spouse indicate that Rx was for taper from 60 mg daily --> 10 mg daily and that he has only a few tabs left from that Rx. Given Rx for oxycodone 10 mg Q 6 hours # 20 to last until he sees PCP in clinic; subsequent tapering to be coordinated between PCP and [facility] Pharmacist. (9) DVT prophylaxis: SCD's ordered. Ambulating. (10) Discharge planning issues: Discharge to home. Family Medicine follow-up with Dr. Estevez. Nephrology follow-up with Dr. Augustine. Subjective Recheck for multiple problems. Patient seen in their room around 14:10. Doing well. Tolerating diet. Nausea and vomiting resolved. Ongoing chronic bilateral shoulder pain. No CP or SOB. Ready to go home. Physical Exam Constitutional: no acute distress Respiratory: no respiratory distress Auscultation: lungs clear to auscultation bilaterally Cardiovascular: Rate/Rhythm: regular rate and regular rhythm Heart Sounds: no gallop, no murmur and no cardiac rub Vessels: no JVD Extremities: no calf tenderness and no edema Gastrointestinal (Abdomen): normal bowel sounds, soft, nontender, no hepatosplenomegaly Skin: no rashes, warm and dry Psychiatric: Orientation: alert and oriented x 3 Results & Data Vital Signs (Past 12 Hours) Vital Signs Temp Pulse Pulse Resp BP Pulse Ox 10/04/18 15:06 80 10/04/18 11:41 36.8 C 60 22 144/92 H 98 10/04/18 07:35 73 10/04/18 07:12 36.5 C 76 22 121/84 97 Laboratory Results Laboratory Tests 10/04/18 05:33 Sodium 133 L Potassium 4.5 Chloride 100 Carbon Dioxide 27 BUN 16 Creatinine 1.07 Glucose 94
--- NOTE | 2018-10-05 08:21 | Discharge Summary ---
Date of Service Date of Admission: 10/01/18 Date of Discharge: 10/04/18 Admission HPI Per Admitting Provider This 48-year-old male with past medical history significant for hyperglycemia, hyperlipidemia, hypertension, GERD, BPH, generalized osteoarthritis of multiple sites, essential tremor, chronic use of opiates, history of iron deficiency anemia, bipolar disorder, posttraumatic stress disorder, low testosterone in a male, who presents with nausea. The patient says he is on pain medications, oxycodone 10 mg 6 times daily for a long time. He wants to taper the pain medications. He is taking pain medication because of his bilateral shoulder pains He has significant pain in his shoulder and he could not lift the shoulders up because of painful movements,. But he wanted to taper his pain meds by himself so he took the herb, called kratom which seemed to help with withdra wal, he started taking it about 10 days ago, but he was started feeling sick, nauseous and he started throw up since , but since last 2 days, he is only belching and dry heaving because of not eating much. Two days back, he stopped kratom and went back to his pain medication, but he started taking only 3 times daily. But his symptoms were not getting better so came to the ER, and in the ER, the blood pressure was 152/90 when he came in and he was given a dose of Klonopin and clonidine and labs were done which showed a sodium of 122 at which time we called for admission. The patient denies any diarrhea or constipation. He has normal movement today, it looked somewhat black because of taking a lot of Pepto-Bismol. Normal bladder movements. No blood in the urine. No burning micturitions. Has chronic shoulder pain. He had some chest discomfort that got resolved now. No shortness of breath, no cough, no fever, no chills, has headaches all over the head, no blurred vision, no earache, no runny nose, no sore throat, no difficulty swallowing. Poor appetite. Ambulating fine. No rash. No edema in lower extremity. Lives with his . Currently, his hemodynamics are stable. Principal Diagnosis hyponatremia Discharge Data Allergies Allergy/AdvReac Type Severity Reaction Status Date / Time bupropion Allergy Severe headache, Verified 10/01/18 18:24 change mental status gemfibrozil Allergy Unknown decreased Verified 10/01/18 18:24 kidney function, muscle aches tamsulosin Allergy Unknown HEADACHES Verified 10/01/18 18:24 allopurinol AdvReac Severe Nausea and Verified 10/01/18 18:24 vomiting aripiprazole AdvReac Severe flicking Verified 10/01/18 18:24 tongue colchicine AdvReac Severe Nausea Verified 10/01/18 18:24 febuxostat [From Uloric] AdvReac Severe Nausea Verified 10/01/18 18:24 Calcium Channel Blocking AdvReac severe Verified 10/01/18 23:18 Agent Dilt swelling Calcium Channel Blocking AdvReac severe Verified 10/01/18 23:18 Agents-Dih swelling Consultations 10/01/18 20:19 ED Decision to Admit Stat 10/01/18 23:12 Consult Case Management - Discharge Planning Routine 10/02/18 08:00 Consult Nephrology Routine Consult Pain Management Routine Hospital Course (1) Hyponatremia with decreased serum osmolality: Serum sodium 122 at time of admission. Nephrology consulted. Hyponatremia attributed to combination of hydrochlorothiazide therapy and recent nausea and vomiting +/- possible SIADH from meds. Hydrochlorothiazide discontinued. Na day of discharge 133. Continue 1800 ml fluid restriction. Follow. (2) Acute renal failure: Serum creatinine 1.41 at time of admission compared to baseline of around 1.0. Acute kidney injury probably secondary to recent nausea and vomiting. Received IV fluids. Creatinine day of discharge 1.07. Avoid nonsteroidal anti-inflammatory drugs if possible. Follow. (3) Nausea & vomiting: Recent nausea and vomiting, possibly secondary to kratom or narcotic withdrawal from rapid tapering of oxycodone. Kratom stopped. FeSO4 held. Symptoms improved. (4) Hypertension: Held hydrochlorothiazide and lisinopril secondary to hyponatremia. BP's day of discharge 121/84, 144/92. Continue metoprolol. Resume lisinopril at reduced dose of 5 mg daily pending recheck in clinic. Follow and titrate Rx. (5) Diabetes mellitus type 2, controlled: Managed with metformin. Held metformin during hospital stay. Hemoglobin A1c 5.7. Fasting blood sugar day of discharge 137. Received insulin coverage as necessary. (6) Gout: History of gout, but intolerant of all agents that have been tried including recently prescribed low dose allopurinol. Discontinuation of hydrochlorothiazide may help with hyperuricemia. (7) Bipolar disorder: Continue divalproex and lurasidone. (8) Chronic pain disorder: Chronic pain primarily secondary to orthopedic problems with bilateral shoulders. Treated with oxycodone for many years. Was trying to wean off oxycodone and using kratom instead. Kratom may have been causing nausea and vomiting. Alternatively, N&V could have been secondary to rapid tapering of oxycodone. Seen in consultation by Pain Management. Outpatient weaning of oxycodone recommended- will refer to [facility]. PDMP data reviewed and discussed with patient and spouse. Was given Rx for oxycodone 10 mg tabs # 84 on 09/19/18. Pt and spouse indicate that Rx was for taper from 60 mg daily --> 10 mg daily and that he has only a few tabs left from that Rx. Given Rx for oxycodone 10 mg Q 6 hours # 20 to last until he sees PCP in clinic; subsequent tapering to be coordinated between PCP and [facility] Pharmacist. (9) DVT prophylaxis: SCD's ordered. Ambulating. (10) Discharge planning issues: Discharged to home. Family Medicine follow-up with Dr. Estevez. Nephrology follow-up with Dr. Augustine. Total Time Total Time Spent Total Time Spent (In Minutes): 40 Discharge Plan Discharge Items Patient Disposition: Home - Self-Care Reason For Visit: nausea and vomiting Discharge Diagnosis: dehydration low sodium level in blood Condition: Good Discharge Goals: Decrease discomfort, Improve disease control and Increase independence Activity: Resume your previous activity Non-emergency contact: Primary Care Provider and Hospitalist Call non-emergency contact if: you have any medication questions and your symptoms worsen Follow-up/Referrals: Destinee Augustine MD, PhD [Physician] - (Office will contact you with appointment.) Mario Estevez MD [Primary Care Provider] - (10/09/2018 11:00 AM Mario Estevez MD) Diet: Carb Consistent or DM2 and Heart Healthy Fluids: 1800ml (7 cups) Addtl Provider Instructions: MEDICATION CHANGES: oxycodone 10 mg every 6 hrs Restarting previous dose before tapering. lisinopril 5 mg daily Restarting at lower dose. Please have Dr. Estevez recheck blood pressure and give you further instructions. naloxone (Narcan) As needed for signs of overdose. STOP hydrochlorothiazide It can cause dehydration, low sodium level, gout. HOLD lisinopril 40 mg Restarting at lower dose. Dr. Estevez will adjust dose as necessary. HOLD ferrous sulfate Can be rough on stomach. Have Dr. Estevez watch blood count and iron level. STOP kratom Can cause nausea, vomiting, and other problems. AVOID ibuprofen and naproxen Can cause ulcers, high blood pressure, kidney problems. HOLD allopurinol You already stopped this. Consider trying it again in a week or 2. SUMMARY OF TEST RESULTS: Sodium level was 122 when you were admitted, 133 day of discharge. PENDING TEST RESULTS: none RECOMMENDATIONS FOR FOLLOW-UP: Please ask Dr. Estevez to check lab work (basic metabolic profile) when you see him in clinic. 10/14/2018 1:00 PM [facility] Pain Clinic [facility], [facility] OTHER INSTRUCTIONS: Use naloxone (Narcan) as instructed for narcotic overdose. Seek medical attention if you have: * temperature above 101 * chest pain or trouble breathing * abdominal pain, nausea, vomiting * diarrhea, dark stools or bloody stools * any unanswered questions or concerns Call 911 if symptoms are severe. Please take good care of yourself. Call if you have any questions or problems. You can reach a [facility] hospitalist on duty at [facility] 24 hours a day by calling [phone]. My cell # is [phone]. Prescriptions: New oxycodone 10 mg tablet 10 mg PO Q6H Qty: 20 RF: 0 lisinopril 5 mg tablet 5 mg PO DAILY Qty: 10 RF: 0 naloxone 4 mg/actuation spray,non-aerosol 1 sprays INTNAS ONCE PRN (Reason: opioid overdose) Qty: 2 RF: 0 Continued metformin [Glucophage] 500 mg tablet 500 mg PO BID RF: 0 omeprazole 40 mg capsule,delayed release(DR/EC) 40 mg PO QPM RF: 0 divalproex [Depakote ER] 500 mg tablet extended release 24 hr 1,500 mg PO QPM RF: 0 metoprolol tartrate [Lopressor] 50 mg tablet 50 mg PO BID RF: 0 cholecalciferol (vitamin D3) [Vitamin D3] 1,000 unit Tablet 1,000 unit PO DAILY RF: 0 Latuda 20 mg tablet 20 mg PO QPM RF: 0 ondansetron HCl 8 mg tablet 8 mg PO DIRECTED PRN (Reason: Nausea) RF: 0 testosterone 10 mg/0.5 gram /actuation gel in metered-dose pump 10 mg topical QPM RF: 0 clonazepam 0.5 mg 0.5 g PO DAILY PRN (Reason: Anxiety) RF: 0 Discontinued hydrochlorothiazide 25 mg tablet 25 mg PO QPM RF: 0 lisinopril [Zestril] 40 mg tablet 40 mg PO QPM RF: 0 oxycodone 10 mg tablet 10 mg PO Q6H PRN (Reason: Pain) RF: 0 ferrous sulfate 325 mg (65 mg iron) Tablet,Delayed Release (Dr/Ec) 325 mg PO DAILY RF: 0 allopurinol 50 mg 50 mg PO DAILY RF: 0 Stand-Alone Forms: [facility] Discharge Orders: Discharge Order (Routine); Ordered 10/04/18 Ordered By: Mina Miranda Admission Data Admit Date/Time: 10/01/18 22:10 Attending Provider: Mina Miranda Admit Provider: Salazar Sales Primary Care Provider: Mario Estevez Other Providers: Salazar Sales ; Destinee Augustine ; Patrick Faustin Service: Telemetry Other Interventions: Discharge Summary Assessment (RN) Last Done: 10/04/18 15:57 Pending Studies at Discharge: No DC Date/Time DO NOT enter until pt leaves facility: 10/04/18 16:43
== END 2018-10-04 16:43 | disposition home or self-care (01) | DRG 643 ==
LOC: ED 17:23 → 2S 22:10
DX: Z88.8 Allergy status to other drugs, medicaments and biological substances; T50.905A Adverse effect of unspecified drugs, medicaments and biological substances, initial encounter; T50.2X5A Adverse effect of carbonic-anhydrase inhibitors, benzothiadiazides and other diuretics, initial encounter; F31.81 Bipolar II disorder; K21.9 Gastro-esophageal reflux disease without esophagitis; N17.0 Acute kidney failure with tubular necrosis; D50.9 Iron deficiency anemia, unspecified; F11.23 Opioid dependence with withdrawal; Z79.84 Long term (current) use of oral hypoglycemic drugs; F41.9 Anxiety disorder, unspecified; I10 Essential (primary) hypertension; F43.10 Post-traumatic stress disorder, unspecified; E22.2 Syndrome of inappropriate secretion of antidiuretic hormone; G89.29 Other chronic pain; M25.511 Pain in right shoulder; M10.9 Gout, unspecified; M25.512 Pain in left shoulder; Z79.899 Other long term (current) drug therapy; E11.9 Type 2 diabetes mellitus without complications

== ENCOUNTER 2021-04-12 13:15 | Observation (INO) ==
--- NOTE | 2021-04-12 14:11 | XRay Report ---
XR chest 1V portable HISTORY: Atypical Chest Pain COMPARISON: Chest 06/02/2020. FINDINGS: The lungs are clear. Cardiac silhouette is normal in size. No pleural effusions. No pneumot horax. IMPRESSION: No acute process. ACT 112: Negative or not required by law. Electronically signed by: Freddy Guerrero M.D. 04/12/2021 2:10 PM
[2021-04-12] MEDS ORDERED: ACETAMINOPHEN 1,000 MG/100 ML VIAL IV STA (15:10)
[2021-04-12] MEDS ORDERED: SODIUM CHLORIDE 0.9% 1000ML 1,000 ML IV ONE (15:10)
[2021-04-12 15:33] LABS: Basophils # (auto) 0.02 K/uL (0-0.2); Basophils % (auto) 0.5 %; Eosinophils % (auto) 2.5 %; Hematocrit (blood only) 37.6 % (42-52); Hemoglobin 12.6 g/dL (14.0-18.0); Immature Granulocytes # (auto) 0.01 K/uL (0.00-0.02); Immature Granulocytes % (auto) 0.3 %; Lymphocytes # (auto) 1.43 K/uL (1.2-3.4); Lymphocytes % (auto) 36.1 %; Mean Corpuscular Hemoglobin 30.2 pg (25-34); Mean Corpuscular Hgb Conc 33.5 g/dL (32-36); Mean Corpuscular Volume 90.2 fL (80-100); Mean Platelet Volume 9.3 fL (7.4-10.4); Monocytes # (auto) 0.51 K/uL (0.11-0.59); Monocytes % (auto) 12.9 %; Neutrophils # (auto) 1.89 K/uL (1.4-6.5); Neutrophils % (auto) 47.7 %; Platelet Count 133 K/uL (130-400); RDW Coefficient of Variation 12.7 % (11.5-14.5); RDW Standard Deviation 41.8 fL (36.4-46.3); Red Blood Count 4.17 M/uL (4.7-6.1); White Blood Count 3.96 K/uL (4.8-10.8)
[2021-04-12 15:53] LABS: Partial Thromboplastin Ratio 0.9; Partial Thromboplastin Time 24.5 Seconds (21.0-31.0)
[2021-04-12 15:55] LABS: Troponin I < 0.03 ng/ml (0-0.04)
[2021-04-12 15:58] LABS: Alanine Aminotransferase 153 U/L (7-52); Albumin Globulin Ratio 1.4 (0.9-2); Albumin Level 3.7 gm/dl (3.4-5.0); Alkaline Phosphatase 162 U/L (34-104); Anion Gap 6 (3-11); Aspartate Aminotransferase 107 U/L (13-39); BUN Creatinine Ratio 9.5 (10-20); Bilirubin,Total 0.4 mg/dl (0.2-1.0); Blood Urea Nitrogen 7 mg/dl (6-23); Calcium 8.7 mg/dl (8.5-10.1); Carbon Dioxide 26 mmol/L (21-32); Chloride 105 mmol/L (98-107); Creatinine Clr Calc Pharmacy 158.3 ml/min; Est GFR (African American) 123.8 ml/min; Est GFR (Non-African American) 106.8 ml/min; Globulin 2.7 gm/dl (2.5-4.0); Glucose 137 mg/dl (70-99(Fasting)); Magnesium 1.7 mg/dl (1.7-2.4); Phosphorus 2.3 mg/dl (2.5-4.9); Potassium 4.1 mmol/L (3.5-5.1); Sodium 137 mmol/L (136-145); Total Protein 6.4 gm/dl (6.0-8.3)
--- NOTE | 2021-04-12 16:04 | CT Scan Report ---
HEAD CT NONCONTRAST CT DOSE: 614.27 mGy.cm HISTORY: Headache- fall with head strike last week TECHNIQUE: Multiaxial CT images of the head were performed without the use of intravenous contrast. A utomated exposure control was utilized for this study. A dose lowering technique was utilized adheri ng to the principles of ALARA. Comparison: Head CT 09/13/2019. Findings: Mild mucosal thickening within the right sphenoid sinus, unchanged. The mastoid air cells a re clear. The calvarium and skull base are intact. The ventricles and sulci are within normal limits. There is no mass, hematoma, midline shift, or acute infarct. Impression: No acute intracranial abnormality. ACT 112: Negative or not required by law. Electronically signed by: Freddy Guerrero M.D. 04/12/2021 4:03 PM
[2021-04-12] MEDS ORDERED: PROCHLORPERAZINE 1 ML IV ONE (16:39)
[2021-04-12] MEDS ORDERED: dexAMETHasone**PF** 10 MG/ML VIAL IV ONE (16:39)
[2021-04-12] MEDS ORDERED: diphenhydrAMINE 50 MG/ML VIAL IV STA (16:39)
[2021-04-12] MEDS ORDERED: oxyCODONE HCL IR 5 MG TAB (IMMEDIATE RELEASE) PO STA (16:39)
[2021-04-12] MEDS ORDERED: LABETALOL HCL IV 5 MG/ML 20ML IV STA (17:43)
--- NOTE | 2021-04-12 18:01 | History & Physical Report ---
Date of Service April 12, 2021 Assessment & Plan (1) Hypertensive urgency: Plan: This is a 50yo M with PMH of HTN, chronic pain syndrome on opiates, bipolar disorder, BPH, JENNY on CPAP and other medical problems listed below who presents with chest pain episode at 0730 this morning. BP initially 222/115, improved to 169/99 after 5mg IV labetalol Likely a component of opioid withdrawal as well - home regimen includes Morphine ER 15mg BID and Oxycodone 10mg Q4H Continue home hydralazine, lisinopril, Lopressor Monitor closely, add PRN agents if needed (2) Chest pain: Plan: Episode of non-radiating CP this morning that has since resolved ECG without changes, initial troponin negative, CXR with no acute process In setting of elevated BP, has resolved with better BP control Trend troponin, telemetry, repeat ECG in AM (3) Diabetes mellitus type 2, controlled: Plan: Hold home agents SSI while in-patient BSG AC HS (4) Chronic pain disorder: (5) Opiate dependence: Plan: Home regimen includes Morphine ER 15mg BID and Oxycodone 10mg Q4H, confirmed with PDMP (6) Headache: Plan: Intermittent headache present since fall last week CT head without acute abnormalities Headache improved significantly with migraine cocktail in ED Ibuprofen, Tylenol PRN along with home pain regimen (7) Bipolar disorder: Plan: Continue Latuda, Depakote HS (8) Anxiety: Plan: Ativan 1mg daily PRN (9) JENNY on CPAP: Plan: CPAP HS DVT Ppx: SQ heparin Code status: FULL PCP: Zenaida Dispo: Admitted to PCU Patient seen in collaboration with Dr. Barraza. Please see addendum. History of Present Illness Chief Complaint: CP, fall Primary Care Provider: Mario Estevez MD This is a 50yo M with PMH of HTN, chronic pain syndrome on opiates, bipolar disorder, BPH, JENNY on CPAP and other medical problems listed below who presents with chest pain episode at 0730 this morning. Developed left and central CP that was non-radiating and not associated with SOB, nausea, vomiting. Pain has resolved since arrival when he received migraine cocktail and home oxycodone. Does endorse a fall last week when he got wrapped up in blankets and hit head on bedside table. Denies LOC. Has been having headache since then that was made better with migraine cocktail in ED. No fever, chills, lightheadedness, SOB, N/V, abdominal pain, dysuria, diarrhea or constipation. Allergies Allergy/AdvReac Type Severity Reaction Status Date / Time bupropion Allergy Severe headache, Verified 04/12/21 14:17 change mental status gemfibrozil Allergy Unknown decreased Verified 04/12/21 14:17 kidney function, muscle aches tamsulosin Allergy Unknown HEADACHES Verified 04/12/21 14:17 allopurinol AdvReac Severe Nausea and Verified 04/12/21 14:17 vomiting aripiprazole AdvReac Severe flicking Verified 04/12/21 14:17 tongue colchicine AdvReac Severe Nausea Verified 04/12/21 14:17 febuxostat [From Uloric] AdvReac Severe Nausea Verified 04/12/21 14:17 Calcium Channel Blocking AdvReac severe Verified 04/12/21 14:17 Agent Dilt swelling Calcium Channel Blocking AdvReac severe Verified 04/12/21 14:17 Agents-Dih swelling Home Medications Medication Instructions Recorded Confirmed Type divalproex 500 mg tablet,extended 1,500 mg PO QPM 04/08/18 04/12/21 History release 24 hr (Depakote ER) lurasidone 20 mg tablet (Latuda) 20 mg PO QPM 04/08/18 04/12/21 History metoprolol tartrate 50 mg tablet 50 mg PO BID 04/08/18 04/12/21 History (Lopressor) omeprazole 40 mg capsule,delayed 40 mg PO QPM 04/08/18 04/12/21 History release ondansetron HCl 8 mg tablet 8 mg PO DIRECTED PRN 10/01/18 04/12/21 History testosterone 10 mg TOPICAL QPM 10/01/18 04/12/21 History naloxone 4 mg/actuation nasal spray 1 sprays INTNAS ONCE PRN #2 ea 10/04/18 04/12/21 Rx silodosin 8 mg capsule (Rapaflo) 8 mg PO DAILY #30 cap 06/09/19 04/12/21 Rx lisinopril 40 mg tablet 40 mg PO DAILY 09/12/19 04/12/21 History hydralazine 10 mg tablet 10 mg PO BID 04/12/21 04/12/21 History ibuprofen 200 mg tablet 800 mg PO DAILY PRN 04/12/21 04/12/21 History lorazepam 1 mg tablet 1 mg PO DAILY PRN 04/12/21 04/12/21 History metformin 500 mg tablet 500 mg PO BID 04/12/21 04/12/21 History morphine 15 mg tablet,extended 15 mg PO BID 04/12/21 04/12/21 History release oxycodone 10 mg tablet 10 mg PO Q4H 04/12/21 04/12/21 History Past Med/Surg History Medical History (Updated 04/12/21 @ 20:10 by Ghada Corley PA-C) Acute renal failure Anxiety Biliary colic Bipolar disorder Chronic pain disorder GERD (gastroesophageal reflux disease) Headache Hypertension Hypertension Hypertensive urgency (01/11/13) Hyponatremia with decreased serum osmolality Surgical History H/O shoulder surgery S/P cholecystectomy Family History Other Hypertension Stroke Social History (Updated 04/12/21 @ 19:12 by Ghada Corley PA-C) Smoking Status: Current every day smoker Tobacco Type: Smokeless Tobacco (Dip or Chew) Hx Alcohol Use: No Hx Substance Use: No Preferred Language: German Communication Ability: Effective Visual Impairment: No Limitations Hearing Ability: Normal Business Coordinator Required: No Beliefs That Will Affect Care: None Current Living Situation: Spouse Feels Safe at Home: Yes Assistive Devices: Glasses Review of Systems Review of Systems: At least ten systems reviewed and negative except as noted in the HPI. Physical Exam Physical Exam: Please see Dr. Barraza's addendum for physical exam. Results & Data Results & Data ([facility]) Vital Signs (Past 12 Hours) Vital Signs Temp Pulse Resp BP Pulse Ox 04/12/21 17:41 169/99 H 04/12/21 17:30 77 16 175/110 H 98 04/12/21 17:20 163/102 H 04/12/21 17:10 157/103 H 04/12/21 17:01 85 18 161/101 H 04/12/21 16:53 79 20 168/113 H 98 04/12/21 16:11 80 20 186/125 H 99 04/12/21 15:25 75 22 164/102 H 97 04/12/21 13:18 36.8 C 88 18 222/115 H 97 Laboratory Results Short CBC 04/12/21 Range/Units 15:20 WBC 3.96 L (4.8-10.8) K/uL Hgb 12.6 L (14.0-18.0) g/dL Hct 37.6 L (42-52) % Plt Count 133 (130-400) K/uL BMP 04/12/21 15:20 Sodium 137 Potassium 4.1 Chloride 105 Carbon Dioxide 26 BUN 7 Creatinine 0.74 Glucose 137 H Calcium 8.7 Cardiac Enzymes 04/12/21 Range/Units 15:20 Troponin I < 0.03 (0-0.04) ng/ml Liver Function 04/12/21 Range/Units 15:20 Total Bilirubin 0.4 (0.2-1.0) mg/dl AST 107 H (13-39) U/L ALT 153 H (7-52) U/L Alkaline Phosphatase 162 H (34-104) U/L Albumin 3.7 (3.4-5.0) gm/dl Diagnostic Findings Chest X-Ray 04/12/21 13:51 XR chest 1V portable HISTORY: Atypical Chest Pain COMPARISON: Chest 06/02/2020. FINDINGS: The lungs are clear. Cardiac silhouette is normal in size. No pleural effusions. No pneumothorax. IMPRESSION: No acute process. ACT 112: Negative or not required by law. Electronically signed by: Freddy Guerrero M.D. 04/12/2021 2:[address] 04/12/21 15:[address] DOSE: 614.27 mGy.cm HISTORY: Headache- fall with head strike last week TECHNIQUE: Multiaxial CT images of the head were performed without the use of intravenous contrast. Automated exposure control was utilized for this study. A dose lowering technique was utilized adhering to the principles of ALARA. Comparison: Head CT 09/13/2019. Findings: Mild mucosal thickening within the right sphenoid sinus, unchanged. The mastoid air cells are clear. The calvarium and skull base are intact. The ventricles and sulci are within normal limits. There is no mass, hematoma, midline shift, or acute infarct. Impression: No acute intracranial abnormality. ACT 112: Negative or not required by law. Electronically signed by: Freddy Guerrero M.D. 04/12/2021 4:03 PM ECG Additional Comments: Normal sinus rhythm Minimal voltage criteria for LVH Supervising Physician Co-Signing Physician Notes Pt is a 50 y/o M with hx of HTN, DMII, BPH, GERD, HLD, Bipolar I, PTSD, chronic pain syndrome on narcotics, IBS admitted for HTN urgency and Chest pain -Chest pain is localized to the L side, non radiating, no associated diaphoresis or SOB. CP gotten better. PE: NAD HEENT: No sign of swelling or deformities of the scalp/face Lungs: CTA, no wheezing or crackles Cardiac: normal S1/S2, no murmur Abd: ND, NT, Soft MSK: mild pitting edema of b/l LE Psych: anxious, AAOx3 A/P: HTN urgency: -per pt he is complaint with HTN meds -BP improved with IV Labetalol - For now will continue home Lisinopril and metoprolol dose - consider adding HCTZ if BP remains elevated - Admit to tele Atypical Chest pain: -EKG: NSR, No ST or T wave changes -Trop neg - due to HTN urgency and age will trend trop - CXR: no acute disease - Admit to tele Elevated LFTs: -hx of hepatic steatosis and prior hx of elevated LFTs -will trend CMP Chronic pain & on narcotics: -will continue his home regimen Agree with A/P by Ghada Corley PA-C
[2021-04-12] MEDS ORDERED: NALOXONE NASAL SPRAY 4 MG ER HOMEPACK PRN (20:13)
[2021-04-12] MEDS ORDERED: oxyCODONE HCL IR 5 MG TAB (IMMEDIATE RELEASE) PO SCH (20:13)
--- NOTE | 2021-04-12 20:51 | Emergency Department Note ---
Impression & Plan Hypertensive urgency, Headache, Atypical chest pain ED Provider Note NAME: CLARA BERMAN AGE: 50 SEX: M ARRIVES VIA: Walk-In INFORMANT: Patient, ED PROVIDER(S): Glenroy Solorio MD CHIEF COMPLAINT: Chest pain PLAN: Disposition: Admit MEDICAL DECISION MAKING: The patient is a pleasant 50 y/o gentleman with a pmhx of chronic pain d/o, opiate dependence, JENNY on CPAP, HTN, BPD, anxiety who presents to the emergency department accompanied by his for evaluation of left sided chest pain and tingling in his left arm, which began this morning and has been constant. He reports the pain is not associated with exertion or rest. He reports the numbness and tingling is not new and has been evaluated in the past with a negative EMG. He further adds that he fell over a week ago and hit his head and nearly passed out. He has had a daily headache since then. His reports that the patient's BP has been been elevated for several days. He reports he has been taking his mediations as prescribed. On arrival the patient is in NAD, AF, with BP 220s/110s and otherwise VSS. He appears clinically dry. He neurologic exam is unremarkalbe. EKG without overt acute ischemia. CXR negative for acute cardiopulmonary process. WBC 3.9K similar to prior. H/H 12.6/37.6 approximate to but decreased from prior. Platelets wnl. Chemistry without acidosis. Electrolytes unremarkable. LFTs similar to prior. Troponin negative/undetectable. Covid-19 RNA, NAAT negative. CT head negative for acute process. Upon re-evaluation the patient felt marginally improved following IVF hydration, apap, as well as his home oxycodone and dexamethasone and Compazine for possible migraine. BP with somewhat improved but elevated for the patient. Given persistance of his symptoms with hypertensive urgency he agrees with plan for admission. Labetalol ordered. Case was discussed with Ghada Corley [facility] PAC, with Dr. Barraza, [facility] hospitalist who will evaluate the patient for admission. Triage Nursing notes reviewed and agree them. Prior medical records reviewed Vital Signs: reviewed and remarkable for hypertension. Differential diagnosis: Cardiac ischemia, aortic dissection, pulmonary embolism, pneumothorax, pneumonia, pericarditis, myocarditis, esophageal rupture, GERD, cholecystitis, pancreatitis, musculoskeletal, as well as other pathologies. ER treatment provided: See below. Diagnostics interpreted by me: ECG: NSR, 85 bpm, no ectopy, LVH, no overt ST elevation or depression. Cardiac Monitoring: An order for continuous cardiac monitoring was placed and demonstrated NSR, 85 bpm, no ectopy. Laboratory studies: See below Imaging studies: See below Consultation(s): Case was discussed with Ghada Corley, [facility] PAC, with Dr. Barraza, [facility] hospitalist who will evaluate the patient for admission. HPI: The patient is a pleasant 50 y/o gentleman with a pmhx of chronic pain d/o, opiate dependence, JENNY on CPAP, HTN, BPD, anxiety who presents to the emergency department accompanied by his for evaluation of left sided chest pain and tingling in his left arm, which began this morning and has been constant. He reports the pain is not associated with exertion or rest. He reports the numbness and tingling is not new and has been evaluated in the past with a negative EMG. He further adds that he fell over a week ago and hit his head and nearly passed out. He has had a daily headache since then. His reports that the patient's BP has been been elevated for several days. He reports he has been taking his mediations as prescribed. ROS: See above HPI for pertinent positives & negatives. A total of 10 systems reviewed and were otherwise negative. PAST MEDICAL HISTORY:See Below PAST SURGICAL HISTORY:See Below FAMILY HISTORY:See Below SOCIAL HISTORY:See Below HOME MEDICATIONS:See Below ALLERGIES:See Below VITALS:See Below PHYSICAL EXAMINATION: GENERAL: Awake, alert, fatigued-appearing, in no distress HENT: Normocephalic, atraumatic. Oropharynx with dry mucous membranes and otherwise unremarkable. EYES: Normal conjunctiva. Sclera non-icteric. EOMI. No nystamgus. PEARRL. NECK: Supple. No nuchal rigidity. FROM. No JVD. RESPIRATORY: Clear to auscultation. CARDIAC: Regular rate, normal rhythm. Extremities warm and well perfused. Pulses equal. ABDOMEN: Soft, non-distended. No tenderness to palpation. No rebound or guarding. No masses. RECTAL: Deferred. MUSCULOSKELETAL: Chest examination reveals no tenderness. The back is symmetrical on inspection without obvious abnormality. There is no CVA tenderness to palpation. No joint edema. LOWER EXTREMITIES: Calves are equal size bilaterally and non-tender. No edema. No discoloration. NEURO: Normal sensorium. No sensory or motor deficits noted. 5/5 strength and SILT x 4 extremities. Cerebellar function intact including amyrys-vq-dqyz, alt ernating palms. SKIN: No rash or jaundice noted. Glenroy Solorio MD Past Med/Surg History Medical History Acute renal failure Anxiety Biliary colic Bipolar disorder Chronic pain disorder GERD (gastroesophageal reflux disease) Headache Hypertension Hypertension Hypertensive urgency (01/11/13) Hyponatremia with decreased serum osmolality Surgical History H/O shoulder surgery S/P cholecystectomy Family History Other Hypertension Stroke Social History Smoking Status: Current every day smoker Tobacco Type: Smokeless Tobacco (Dip or Chew) Hx Alcohol Use: No Hx Substance Use: No Preferred Language: Georgian Communication Ability: Effective Visual Impairment: No Limitations Hearing Ability: Normal Finishing Range Operator Required: No Beliefs That Will Affect Care: None Current Living Situation: Spouse Feels Safe at Home: Yes Assistive Devices: Glasses Allergies Allergies Allergy/AdvReac Type Severity Reaction Status Date / Time bupropion Allergy Severe headache, Verified 04/12/21 14:17 change mental status gemfibrozil Allergy Unknown decreased Verified 04/12/21 14:17 kidney function, muscle aches tamsulosin Allergy Unknown HEADACHES Verified 04/12/21 14:17 allopurinol AdvReac Severe Nausea and Verified 04/12/21 14:17 vomiting aripiprazole AdvReac Severe flicking Verified 04/12/21 14:17 tongue colchicine AdvReac Severe Nausea Verified 04/12/21 14:17 febuxostat [From Uloric] AdvReac Severe Nausea Verified 04/12/21 14:17 Calcium Channel Blocking AdvReac severe Verified 04/12/21 14:17 Agent Dilt swelling Calcium Channel Blocking AdvReac severe Verified 04/12/21 14:17 Agents-Dih swelling Home Meds Home Medications Medication Instructions Recorded Confirmed divalproex 500 mg tablet,extended 1,500 mg PO QPM 04/08/18 04/12/21 release 24 hr (Depakote ER) lurasidone 20 mg tablet (Latuda) 20 mg PO QPM 04/08/18 04/12/21 metoprolol tartrate 50 mg tablet 50 mg PO BID 04/08/18 04/12/21 (Lopressor) omeprazole 40 mg capsule,delayed 40 mg PO QPM 04/08/18 04/12/21 release ondansetron HCl 8 mg tablet 8 mg PO DIRECTED PRN 10/01/18 04/12/21 testosterone 10 mg TOPICAL QPM 10/01/18 04/12/21 lisinopril 40 mg tablet 40 mg PO DAILY 09/12/19 04/12/21 hydralazine 10 mg tablet 10 mg PO BID 04/12/21 04/12/21 ibuprofen 200 mg tablet 800 mg PO DAILY PRN 04/12/21 04/12/21 lorazepam 1 mg tablet 1 mg PO DAILY PRN 04/12/21 04/12/21 metformin 500 mg tablet 500 mg PO BID 04/12/21 04/12/21 morphine 15 mg tablet,extended 15 mg PO BID 04/12/21 04/12/21 release oxycodone 10 mg tablet 10 mg PO Q4H PRN 04/12/21 04/12/21 Previous Rx's Medication Instructions Recorded naloxone 4 mg/actuation nasal spray 1 sprays INTNAS ONCE PRN #2 ea 10/04/18 silodosin 8 mg capsule (Rapaflo) 8 mg PO DAILY #30 cap 06/09/19 Results & Data (ED) Vital Signs Vital Signs - 24 hr 04/12/21 13:18 04/12/21 15:25 04/12/21 16:11 Temperature 36.8 C Temperature Source Temporal Artery Scan Pulse Rate 88 75 80 Pulse Rate from SpO2 Sensor Respiratory Rate 18 22 20 Respiratory Effort / Characteristics Non-Labored Spontaneous Respiratory Depth Normal Respiratory Pattern Regular Blood Pressure 222/115 H 164/102 H 186/125 H Blood Pressure Mean 150 122 145 Blood Pressure Position Sitting Pulse Oximetry 97 97 99 Oxygen Delivery Method Room Air Room Air Sepsis Recent Fever Within 48 Hours No Sepsis New/Unexplained Change in Mental Status N/A Sepsis Action Taken by Nursing No Action Required 04/12/21 16:53 04/12/21 17:01 04/12/21 17:10 Temperature Temperature Source Pulse Rate 79 85 Pulse Rate from SpO2 Sensor 79 Respiratory Rate 20 18 Respiratory Effort / Characteristics Respiratory Depth Respiratory Pattern Blood Pressure 168/113 H 161/101 H 157/103 H Blood Pressure Mean 131 121 121 Blood Pressure Position Pulse Oximetry 98 Oxygen Delivery Method Sepsis Recent Fever Within 48 Hours Sepsis New/Unexplained Change in Mental Status Sepsis Action Taken by Nursing 04/12/21 17:20 04/12/21 17:30 04/12/21 17:41 Temperature Temperature Source Pulse Rate 77 Pulse Rate from SpO2 Sensor 77 Respiratory Rate 16 Respiratory Effort / Characteristics Respiratory Depth Respiratory Pattern Blood Pressure 163/102 H 175/110 H 169/99 H Blood Pressure Mean 122 131 122 Blood Pressure Position Pulse Oximetry 98 Oxygen Delivery Method Sepsis Recent Fever Within 48 Hours Sepsis New/Unexplained Change in Mental Status Sepsis Action Taken by Nursing Laboratory Data Attestation: I reviewed the patient's lab results. Result diagrams: 04/12/21 15:20 04/12/21 15:20 Lab Results 04/12/21 04/12/21 04/12/21 Range/Units 15:20 15:20 15:20 WBC 3.96 L (4.8-10.8) K/uL RBC 4.17 L (4.7-6.1) M/uL Hgb 12.6 L (14.0-18.0) g/dL Hct 37.6 L (42-52) % MCV 90.2 (80-100) fL MCH 30.2 (25-34) pg MCHC 33.5 (32-36) g/dL RDW Std Deviation 41.8 (36.4-46.3) fL RDW Coeff of Tamiko 12.7 (11.5-14.5) % Plt Count 133 (130-400) K/uL MPV 9.3 (7.4-10.4) fL Immature Gran % (Auto) 0.3 % Neut % (Auto) 47.7 % Lymph % (Auto) 36.1 % Jerome % (Auto) 12.9 % Eos % (Auto) 2.5 % Baso % (Auto) 0.5 % Neut # (Auto) 1.89 (1.4-6.5) K/uL Lymph # (Auto) 1.43 (1.2-3.4) K/uL Jerome # (Auto) 0.51 (0.11-0.59) K/uL Eos # (Auto) 0.10 (0-0.5) K/uL Baso # (Auto) 0.02 (0-0.2) K/uL Immature Gran # (Auto) 0.01 (0.00-0.02) K/uL PT 10.0 (9.0-12.0) Seconds INR 1.0 (0.9-1.1) APTT 24.5 (21.0-31.0) Seconds PTT Ratio 0.9 Sodium 137 (136-145) mmol/L Potassium 4.1 (3.5-5.1) mmol/L Chloride 105 (98-107) mmol/L Carbon Dioxide 26 (21-32) mmol/L Anion Gap 6 (3-11) BUN 7 (6-23) mg/dl Creatinine 0.74 (0.6-1.4) mg/dl Est Cr Clr Drug Dosing 158.3 ml/min Est GFR ( Amer) 123.8 ml/min Est GFR (Non-Af Amer) 106.8 ml/min BUN/Creatinine Ratio 9.5 L (10-20) Glucose 137 H (70-99(Fasting)) mg/dl Calcium 8.7 (8.5-10.1) mg/dl Phosphorus 2.3 L (2.5-4.9) mg/dl Magnesium 1.7 (1.7-2.4) mg/dl Total Bilirubin 0.4 (0.2-1.0) mg/dl AST 107 H (13-39) U/L ALT 153 H (7-52) U/L Alkaline Phosphatase 162 H (34-104) U/L Troponin I < 0.03 (0-0.04) ng/ml Total Protein 6.4 (6.0-8.3) gm/dl Albumin 3.7 (3.4-5.0) gm/dl Globulin 2.7 (2.5-4.0) gm/dl Albumin/Globulin Ratio 1.4 (0.9-2) Administered Medications Divalproex Sodium (Divalproex Extended Release 500 Mg Tab) 1,500 mg PO QPM KERON Stop: 05/12/21 20:59 Last Admin: 04/12/21 21:24 Dose: 1,500 mg Documented by: [id number] Heparin Sodium (Porcine) (Heparin Sod 5,000 Unit/0.5 Ml Vial) 5,000 units SQ Q8 KERON Stop: 05/12/21 22:22 Last Admin: 04/13/21 00:04 Dose: 5,000 units Documented by: [id number] Hydralazine HCl (Hydralazine 10 Mg Tab) 10 mg PO BID KERON Stop: 05/12/21 20:59 Last Admin: 04/12/21 21:25 Dose: 10 mg Documented by: [id number] Insulin Aspart (Insulin Aspart Per Unit) 0 units SC ACHS KERON Stop: 05/12/21 22:22 Last Admin: 04/13/21 00:21 Dose: 4 units Documented by: [id number] Cosigned by: [id number] Lurasidone HCl (Lurasidone Hcl 40 Mg Tab) 20 mg PO 1700 KERON Stop: 05/12/21 21:44 Last Admin: 04/12/21 21:55 Dose: 20 mg Documented by: [id number] Metoprolol Tartrate (Metoprolol Tartrate 50 Mg Tab) 50 mg PO BID KERON Stop: 05/12/21 20:59 Last Admin: 04/12/21 21:56 Dose: 50 mg Documented by: [id number] Morphine Sulfate (Morphine Sulfate Cr 15 Mg Tabcr) 15 mg PO BID KERON Stop: 04/26/21 20:59 Last Admin: 04/12/21 21:57 Dose: 15 mg Documented by: [id number] Oxycodone HCl (Oxycodone Hcl Ir 5 Mg Tab (Immediate Release)) 10 mg PO Q4H PRN PRN Reason: pain Stop: 04/26/21 20:12 Last Admin: 04/13/21 00:01 Dose: 10 mg Documented by: [id number] Pantoprazole Sodium (Pantoprazole 40 Mg Tab) 40 mg PO QPM KERON Stop: 05/12/21 22:22 Last Admin: 04/13/21 00:02 Dose: 40 mg Documented by: [id number] Discontinued Medications Dexamethasone Sodium Phosphate (DexamethasonePf 10 Mg/Ml Vial) 10 mg IV NOW ONE Stop: 04/12/21 16:40 Last Admin: 04/12/21 16:56 Dose: 10 mg Documented by: [id number] Diphenhydramine HCl (Diphenhydramine 50 Mg/Ml Vial) 25 mg IV NOW STA Stop: 04/12/21 16:40 Last Admin: 04/12/21 18:35 Dose: Not Given Documented by: [id number] Sodium Chloride (Nss 1000ml) 1,000 mls @ 999 mls/hr IV .Q1H1M ONE Stop: 04/12/21 16:10 Last Infusion: 04/12/21 20:01 Dose: 0 mls/hr Documented by: [id number] Admin: 04/12/21 15:35 Dose: 999 mls/hr Documented by: [id number] Acetaminophen (Ofirmev) 1,000 mg in 100 mls @ 400 mls/hr IV NOW STA Stop: 04/12/21 15:24 Last Infusion: 04/12/21 18:35 Dose: 0 mls/hr Documented by: [id number] Admin: 04/12/21 15:37 Dose: 400 mls/hr Documented by: [id number] Prochlorperazine (Compazine) 1 mls @ 1 mls/min IV ONE ONE Stop: 04/12/21 16:40 Last Admin: 04/12/21 16:58 Dose: 1 mls/min Documented by: [id number] Labetalol HCl (Labetalol Hcl Iv 5 Mg/Ml 20ml) 5 mg IV NOW STA Stop: 04/12/21 17:44 Last Admin: 04/12/21 17:49 Dose: 5 mg Documented by: [id number] Cosigned by: [id number] Oxycodone HCl (Oxycodone Hcl Ir 5 Mg Tab (Immediate Release)) 10 mg PO NOW STA Stop: 04/12/21 16:40 Last Admin: 04/12/21 16:55 Dose: 10 mg Documented by: [id number] Oxycodone HCl (Oxycodone Hcl Ir 5 Mg Tab (Immediate Release)) 10 mg PO Q4H KERON Stop: 04/26/21 20:12 Last Admin: 04/12/21 23:12 Dose: Not Given Documented by: [id number] Imaging Data Radiologist's Impression: Chest X-Ray 04/12/21 13:51 XR chest 1V portable HISTORY: Atypical Chest Pain COMPARISON: Chest 06/02/2020. FINDINGS: The lungs are clear. Cardiac silhouette is normal in size. No pleural effusions. No pneumothorax. IMPRESSION: No acute process. ACT 112: Negative or not required by law. Electronically signed by: Freddy Guerrero M.D. 04/12/2021 2:[address] 04/12/21 15:[address] DOSE: 614.27 mGy.cm HISTORY: Headache- fall with head strike last week TECHNIQUE: Multiaxial CT images of the head were performed without the use of intravenous contrast. Automated exposure control was utilized for this study. A dose lowering technique was utilized adhering to the principles of ALARA. Comparison: Head CT 09/13/2019. Findings: Mild mucosal thickening within the right sphenoid sinus, unchanged. The mastoid air cells are clear. The calvarium and skull base are intact. The ventricles and sulci are within normal limits. There is no mass, hematoma, m idline shift, or acute infarct. Impression: No acute intracranial abnormality. ACT 112: Negative or not required by law. Electronically signed by: Freddy Guerrero M.D. 04/12/2021 4:03 PM Discharge Plan Visit Data Chief Complaint: Chest Pain Stated Complaint: LT CHEST PAIN, TINGLING IN LEFT ARM Discharge Problem: Hypertensive urgency, Headache, Atypical chest pain Patient Disposition: Admitted As Inpatient Discharge Instructions Interventions: ED Discharge Assessment Last Done: 04/12/21 22:15 Discharge Problem: Headache Qualifiers: Headache type: unspecified Headache chronicity pattern: acute headache Intractability: intractable Qualified Code(s): R51.9 - Headache, unspecified
[2021-04-12] MEDS ORDERED: NON-FORMULARY MEDICATION (Lurasidone [Latuda] 20 mg tablet) PO SCH (21:00)
[2021-04-12] MEDS ORDERED: DIVALPROEX EXTENDED RELEASE 500 MG TAB PO SCH (21:00)
[2021-04-12] MEDS: hydrALAZINE 10 MG TAB PO SCH (21:25)
[2021-04-12] MEDS ORDERED: NALOXONE HCL 0.4 MG/1 ML VIAL/CARP IV PRN (21:39)
[2021-04-12] MEDS ORDERED: LURASIDONE HCL 40 MG TAB PO SCH (21:45)
[2021-04-12] MEDS: METOPROLOL TARTRATE 50 MG TAB PO SCH (21:56)
[2021-04-12] MEDS: MoRPHine SULFATE CR 15 MG TABCR PO SCH (21:57)
[2021-04-12] MEDS ORDERED: CARBOHYDRATES FOR HYPOGLYCEMIA PO PRN (22:23)
[2021-04-12] MEDS ORDERED: GLUCAGON FOR INJ 1 MG VIAL SQ PRN (22:23)
[2021-04-12] MEDS ORDERED: DEXTROSE 50% 50 ML SYRINGE IV PRN (22:23)
[2021-04-12] MEDS ORDERED: PANTOprazole 40 MG TAB PO SCH (22:23)
[2021-04-12] MEDS ORDERED: ACETAMINOPHEN 325 MG TAB PO PRN (22:23)
[2021-04-12] MEDS ORDERED: GLUCOSE 10 TABS/TUBE PO PRN (22:23)
[2021-04-12] MEDS ORDERED: POLYETHYLENE (MIRALAX) 17 GM PACK PO PRN (22:23)
[2021-04-12] MEDS ORDERED: GLUCOSE 40% GEL 15 GM TUBE PO PRN (22:23)
[2021-04-12] MEDS ORDERED: IBUPROFEN 800 MG TAB PO PRN (22:23)
[2021-04-12] MEDS ORDERED: ONDANSETRON INJ 2 MG/ML 2 ML VIAL IV PRN (22:23)
[2021-04-12] MEDS ORDERED: LORazepam 1 MG TAB PO PRN (22:47)
[2021-04-13] MEDS: oxyCODONE HCL IR 5 MG TAB (IMMEDIATE RELEASE) PO PRN ×3 (00:01→10:35)
[2021-04-13] MEDS: HEPARIN SOD 5,000 UNIT/0.5 ML VIAL SQ SCH ×2 (00:04→06:14)
[2021-04-13] MEDS: INSULIN ASPART PER UNIT SC SCH ×3 (00:21→13:35)
[2021-04-13 05:30] LABS: Hematocrit (blood only) 39.6 % (42-52); Hemoglobin 13.3 g/dL (14.0-18.0); Mean Corpuscular Hemoglobin 30.2 pg (25-34); Mean Corpuscular Hgb Conc 33.6 g/dL (32-36); Mean Corpuscular Volume 89.8 fL (80-100); Mean Platelet Volume 10.4 fL (7.4-10.4); Platelet Count 120 K/uL (130-400); RDW Coefficient of Variation 12.5 % (11.5-14.5); RDW Standard Deviation 40.9 fL (36.4-46.3); Red Blood Count 4.41 M/uL (4.7-6.1); White Blood Count 4.35 K/uL (4.8-10.8)
[2021-04-13 05:38] LABS: Troponin I < 0.03 ng/ml (0-0.04)
[2021-04-13 05:49] LABS: Anion Gap 9 (3-11); BUN Creatinine Ratio 9.9 (10-20); Blood Urea Nitrogen 7 mg/dl (6-23); Calcium 8.9 mg/dl (8.5-10.1); Carbon Dioxide 22 mmol/L (21-32); Chloride 103 mmol/L (98-107); Est GFR (African American) 125.9 ml/min; Est GFR (Non-African American) 108.6 ml/min; Glucose 199 mg/dl (70-99(Fasting)); Potassium 4.9 mmol/L (3.5-5.1); Sodium 134 mmol/L (136-145)
[2021-04-13] MEDS ORDERED: lisinopril 40 MG TAB PO SCH (09:00)
[2021-04-13] MEDS: MoRPHine SULFATE CR 15 MG TABCR PO SCH ×2 (09:54→10:03)
[2021-04-13] MEDS: METOPROLOL TARTRATE 50 MG TAB PO SCH (09:54)
[2021-04-13] MEDS: hydrALAZINE 10 MG TAB PO SCH (10:04)
[2021-04-13] MEDS ORDERED: hydrOXYzine HCl 25 MG TAB PO PRN (11:47)
[2021-04-13] MEDS ORDERED: hydrALAZINE HCL 25 MG TAB PO STA (11:49)
[2021-04-13] MEDS ORDERED: hydrALAZINE HCL 25 MG TAB PO SCH ×2 (14:00→21:00)
--- NOTE | 2021-04-13 20:11 | Discharge Summary ---
Date of Service April 13, 2021 Admission HPI Per Admitting Provider This is a 50yo M with PMH of HTN, chronic pain syndrome on opiates, bipolar disorder, BPH, JENNY on CPAP and other medical problems listed below who presents with chest pain episode at 0730 this morning. Developed left and central CP that was non-radiating and not associated with SOB, nausea, vomiting. Pain has resolved since arrival when he received migraine cocktail and home oxycodone. Does endorse a fall last week when he got wrapped up in blankets and hit head on bedside table. Denies LOC. Has been having headache since then that was made better with migraine cocktail in ED. No fever, chills, lightheadedness, SOB, N/V, abdominal pain, dysuria, diarrhea or constipation. Admission Exam Per Admitting Provider PE: NAD HEENT: No sign of swelling or deformities of the scalp/face Lungs: CTA, no wheezing or crackles Cardiac: normal S1/S2, no murmur Abd: ND, NT, Soft MSK: mild pitting edema of b/l LE Psych: anxious, AAOx3 Principal Diagnosis Hypertensive urgency Anxiety Discharge Exam GENERAL: Alert and oriented x3. NAD, on RA. HEENT: No pallor, no icterus. Pupils equal, round and reactive to light. Oral mucosa moist. NECK: No JVD, no neck masses. HEART: S1 and S2 heard. Regular rate and rhythm. No murmur, no gallop. RESPIRATORY SYSTEM: Normal AP diameter. No accessory muscle use. No wheezing, no crackles. ABDOMEN: Soft, bowel sounds present, nontender, no distention. CENTRAL NERVOUS SYSTEM: No facial droop. Speech is clear. Obeys simple commands. Moves extremities. EXTREMITIES: No edema, no erythema seen. Discharge Data Allergies Allergy/AdvReac Type Severity Reaction Status Date / Time bupropion Allergy Severe headache, Verified 04/12/21 14:17 change mental status gemfibrozil Allergy Unknown decreased Verified 04/12/21 14:17 kidney function, muscle aches tamsulosin Allergy Unknown HEADACHES Verified 04/12/21 14:17 allopurinol AdvReac Severe Nausea and Verified 04/12/21 14:17 vomiting aripiprazole AdvReac Severe flicking Verified 04/12/21 14:17 tongue colchicine AdvReac Severe Nausea Verified 04/12/21 14:17 febuxostat [From Uloric] AdvReac Severe Nausea Verified 04/12/21 14:17 Calcium Channel Blocking AdvReac severe Verified 04/12/21 14:17 Agent Dilt swelling Calcium Channel Blocking AdvReac severe Verified 04/12/21 14:17 Agents-Dih swelling Consultations 04/12/21 17:44 ED Decision to Admit Stat Ordered Studies 04/12/21 15:12 CT head/brain wo con Stat Hospital Course (1) Atypical chest pain: (2) Hypertensive urgency: 50-year-old male with PMH of hypertension, chronic pain syndrome on opiates, bipolar disorder, BPH, JENNY on CPAP presented 04/12 with complaint of chest pain and was found to be in hypertensive urgency. He is troponin trends were negative and EKG reviewed WNL. His blood pressure medications were adjusted and blood pressure at the time of discharge were fairly under control. Patient Advised to maintain a blood pressure measurement log and take it to his primary care physician for further management and his blood pressure medication as an outpatient. Patient is started on hydroxyzine on top of his home Ativan for his anxiety control, patient will need to follow-up with his primary care physician if hydroxyzine has helped him or not to decide on whether to continue this medication going forward. Patient made aware. Patient to follow-up with primary care physician as an outpatient. Following instructions were communicated to the patient at time discharge: Follow-up with your primary care physician within a week time. For your anxiety, additional drug hydroxyzine has been added for a week time, maintain discussion with your primary care physician if it helps with anxiety for further continuation of the drug. Maintain blood pressure log, at least measure blood pressure twice a day, take it to your primary care physician during your visit as discussed at the bedside, this will help with your primary care physicians dose adjustment of your blood pressure medications. Your blood pressure medication hydralazine has been increased to 25 mg 3 times a day. Follow low-sodium diet as discussed at the bedside, also encourage to lose weight which will help with long-term management of blood pressure. Avoid NSAIDs in future, can take as needed Tylenol jjus-mwe-[id number] for headache. Take medications as prescribed. Total Time Total Time Spent Total Time Spent (In Minutes): 35 Discharge Plan Discharge Items Patient Disposition: Home - Self-Care Reason For Visit: HTNIVE URGENCY Discharge Diagnosis: Pain level hypertensive urgency Chest painresolved DM2, controlled Activity: Resume your previous activity Non-emergency contact: Primary Care Provider Call non-emergency contact if: you have any medication questions and your symptoms worsen Follow-up/Referrals: Mario Estevez MD [Primary Care Provider] - (Date & Time 04/18/2021 9:20 AM Provider [facility] ) Diet: Heart Healthy and Low Sodium (2gm) Addtl Attending Provider Instructions: Follow-up with your primary care physician within a week time. For your anxiety, additional drug hydroxyzine has been added for a week time, maintain discussion with your primary care physician if it helps with anxiety for further continuation of the drug. Maintain blood pressure log, at least measure blood pressure twice a day, take it to your primary care physician during your visit as discussed at the bedside, this will help with your primary care physicians dose adjustment of your blood pressure medications. Your blood pressure medication hydralazine has been increased to 25 mg 3 times a day. Follow low-sodium diet as discussed at the bedside, also encourage to lose weight which will help with long-term management of blood pressure. Avoid NSAIDs in future, can take as needed Tylenol topd-laj-dinehyr for headache. Take medications as prescribed. Pending Studies at Discharge: No Stand-Alone Forms: My [employer], Work/School Release, Smoking Cessation Medications and DC Order Prescriptions: New hydralazine 25 mg Tablet 25 mg PO TID Qty: 90 RF: 0 hydroxyzine HCl 25 mg Tablet 25 mg PO Q8H PRN (Reason: anxiety) 7 Days Qty: 21 RF: 0 Continued silodosin [Rapaflo] 8 mg capsule 8 mg PO DAILY Qty: 30 RF: 11 omeprazole 40 mg capsule,delayed release(DR/EC) 40 mg PO QPM RF: 0 divalproex [Depakote ER] 500 mg tablet extended release 24 hr 1,500 mg PO QPM RF: 0 metoprolol tartrate [Lopressor] 50 mg tablet 50 mg PO BID RF: 0 Latuda 20 mg tablet 20 mg PO QPM RF: 0 ondansetron HCl 8 mg tablet 8 mg PO DIRECTED PRN (Reason: Nausea) RF: 0 testosterone 10 mg/0.5 gram /actuation gel in metered-dose pump 10 mg topical QPM RF: 0 naloxone 4 mg/actuation spray,non-aerosol 1 sprays INTNAS ONCE PRN (Reason: opioid overdose) Qty: 2 RF: 0 lisinopril 40 mg tablet 40 mg PO DAILY RF: 0 metformin 500 mg tablet 500 mg PO BID RF: 0 oxycodone 10 mg tablet 10 mg PO Q4H PRN (Reason: Pain) RF: 0 ibuprofen 200 mg Tablet 800 mg PO DAILY PRN (Reason: Pain) RF: 0 morphine 15 mg tablet extended release 15 mg PO BID RF: 0 lorazepam 1 mg tablet 1 mg PO DAILY PRN (Reason: Anxiety) RF: 0 Discontinued hydralazine 10 mg tablet 10 mg PO BID RF: 0 Discharge Orders: Discharge Order (Routine); Ordered 04/13/21 Ordered By: Kavon Quinonez Admission Data Admit Date/Time: 04/12/21 18:36 Attending Provider: Kavon Quinonez Admit Provider: Nieves Barraza Primary Care Provider: Mario Estevez Other Providers: Nieves Barraza Other Interventions: Discharge Summary Assessment (RN) Last Done: 04/13/21 13:45
--- NOTE | 2021-04-13 22:00 | Electrocardiogram Report ---
Test Reason : Blood Pressure : / mmHG Vent. Rate : 085 BPM Atrial Rate : 085 BPM P-R Int : 150 ms QRS Dur : 078 ms QT Int : 358 ms P-R-T Axes : 015 007 026 degrees QTc Int : 426 ms Normal sinus rhythm Minimal voltage criteria for LVH, may be normal variant Borderline ECG When compared with ECG of 02-JUN-2020 14:56, No significant change was found Confirmed by Soham Medina ([id number]) on 04/13/2021 10:00:27 PM Referred By: Confirmed By:Soham Medina
--- NOTE | 2021-04-15 06:26 | Electrocardiogram Report ---
Test Reason : Blood Pressure : / mmHG Vent. Rate : 083 BPM Atrial Rate : 083 BPM P-R Int : 162 ms QRS Dur : 088 ms QT Int : 366 ms P-R-T Axes : 030 009 037 degrees QTc Int : 430 ms Poor data quality, interpretation may be adversely affected Normal sinus rhythm Minimal voltage criteria for LVH, may be normal variant Borderline ECG When compared with ECG of 12-APR-2021 13:25, No significant change was found Confirmed by Soham Medina ([id number]) on 04/15/2021 6:25:46 AM Referred By: REFERRED SELF Confirmed By:Soham Medina
== END 2021-04-13 13:45 | disposition home or self-care (01) ==
LOC: EDINP 13:15 → ED 13:15 → SUATTDRO 18:36 → EDINP 22:15

== ENCOUNTER 2021-04-18 18:48 | Observation (INO) ==
[2021-04-18 19:24] LABS: Basophils # (auto) 0.03 K/uL (0-0.2); Basophils % (auto) 0.4 %; Eosinophils # (auto) 0.07 K/uL (0-0.5); Eosinophils % (auto) 0.9 %; Hematocrit (blood only) 42.3 % (42-52); Hemoglobin 14.2 g/dL (14.0-18.0); Immature Granulocytes # (auto) 0.04 K/uL (0.00-0.02); Immature Granulocytes % (auto) 0.5 %; Lymphocytes # (auto) 2.39 K/uL (1.2-3.4); Lymphocytes % (auto) 30.1 %; Mean Corpuscular Hgb Conc 33.6 g/dL (32-36); Mean Corpuscular Volume 89.4 fL (80-100); Mean Platelet Volume 9.3 fL (7.4-10.4); Monocytes # (auto) 0.81 K/uL (0.11-0.59); Monocytes % (auto) 10.2 %; Neutrophils # (auto) 4.61 K/uL (1.4-6.5); Neutrophils % (auto) 57.9 %; Platelet Count 185 K/uL (130-400); RDW Coefficient of Variation 12.7 % (11.5-14.5); RDW Standard Deviation 41.8 fL (36.4-46.3); Red Blood Count 4.73 M/uL (4.7-6.1); White Blood Count 7.95 K/uL (4.8-10.8)
--- NOTE | 2021-04-18 19:29 | XRay Report ---
XR chest 1V portable HISTORY: 50 years-old Male Chest Pain acute atypical chest pain COMPARISON: Chest radiograph 04/12/2021 TECHNIQUE: Portable AP view of the chest FINDINGS: The cardiomediastinal and hilar silhouettes are within normal limits. No pneumothorax, pleural effusi on, airspace consolidation or overt pulmonary edema. Spondylitic spurring of the spine. IMPRESSION: No acute process. ACT 112: Negative or not required by law. The above report was generated using voice recognition software. It may contain grammatical, syntax o r spelling errors. Electronically signed by: Trae Magdaleno M.D. 04/18/2021 7:28 PM
[2021-04-18 19:48] LABS: Troponin I < 0.03 ng/ml (0-0.04)
[2021-04-18 19:57] LABS: Alanine Aminotransferase 87 U/L (7-52); Albumin Globulin Ratio 1.4 (0.9-2); Albumin Level 4.2 gm/dl (3.4-5.0); Alkaline Phosphatase 167 U/L (34-104); Anion Gap 10 (3-11); Aspartate Aminotransferase 65 U/L (13-39); BUN Creatinine Ratio 13.4 (10-20); Bilirubin,Total 0.5 mg/dl (0.2-1.0); Blood Urea Nitrogen 13 mg/dl (6-23); Calcium 9.5 mg/dl (8.5-10.1); Carbon Dioxide 24 mmol/L (21-32); Chloride 103 mmol/L (98-107); Creatinine Clr Calc Pharmacy 118.3 ml/min; Est GFR (African American) 104.3 ml/min; Globulin 2.9 gm/dl (2.5-4.0); Glucose 115 mg/dl (70-99(Fasting)); Lipase 40 U/L (11-82); Potassium 4.2 mmol/L (3.5-5.1); Sodium 137 mmol/L (136-145); Total Protein 7.1 gm/dl (6.0-8.3)
[2021-04-18 20:21] LABS: D Dimer 290 ug/L FEU (0-500)
--- NOTE | 2021-04-18 20:42 | Emergency Department Note ---
Impression & Plan Chest pain, Hypertensive urgency, Headache ED Provider Note INFORMANT: Patient ED PROVIDER(S): Mina Emanuel MD CHIEF COMPLAINT: Chest pain PLAN: Disposition: Admitted Condition: Good Outpatient prescription management: none Referral: None MEDICAL DECISION MAKING: Patient presented because of complaints of chest pain. He also noted a headache that has been ongoing for some time. He has had trouble with his new blood pressure medication and his systolic and diastolic measurements have increased significantly. Patient was seen in the protocol area secondary to the high volume and high acuity during the COVID-19 pandemic. He was neurologically intact. His ECG showed a sinus rhythm. He was moderately hypertensive. He was complaining of a headache and was given oral oxycodone as he does take strong pain medication at home. This did not help. He did ask for a migraine cocktail as he has a history of the same. He was ordered Reglan, Toradol, and Decadron as these have worked well for him in the past per him and his . The patient had a negative head CT. His CBC was unremarkable. Troponin was negative as was his chest x-ray. LFTs were elevated but this has been an ongoing problem for the patient. In light of his problems with his new outpatient prescription, his hypertension and this chest pain issue further management in the hospital was felt to be appropriate. Consultation was made with Dr. Arnulfo Willard, [facility] hospitalist service. Triage Nursing notes reviewed and agree them. Vital Signs: reviewed and remarkable for hypertension Differential diagnosis: Benign hypertension, hypertensive emergency, cardiovascular pathology, toxicologic, pheochromocytoma, electrolyte abnormality, renal disease, endorgan damage, migraine, ICH, as well as other pathologies. Diagnostics interpreted by me: EC Lead ECG performed and revealed Normal sinus rhythym at 95, normal [place], QRS normal. No elevation or depression. No PACs or PVCs Imaging studies: Chest x-ray. Findings: A chest x-ray was performed and revealed no pneumothorax, effusion, infiltrate, pulmonary edema, free air under the diaphragm, or wide mediastinum. Impression: No acute disease. Head CT: A noncontrast CT scan of the head was performed and was negative for tumor, fracture, intracranial hemorrhage, or other acute pathology. HPI: The patient is a 50 year old male who presents to the Emergency Room with complaints of chest pain. This started again today and is persisting. The patient was noting some chest pains and headache last week. His blood pressure was elevated. He was seen and was admitted. He states he was started on hydralazine. Since starting that medication he has not felt well. He noted increased headaches and dizziness. The patient states that he was developing more chest pain and the pain was going towards the left arm and noted left arm tingling. He also had a headache. Patient states he did fall on the ice 2 weeks ago. Patient states that his blood pressure went up to the 170/110. The patient has found no relieving factors. Current pain is rated as 6/10. Pt d enies LOC, fevers, chills, diaphoresis, visual changes, neck pain, breathing difficulties, nausea, vomiting, abdominal pain, back pain, melena, hematochezia, urinary symptoms, weakness, lymphadenopathy, rash, or other complaints. ROS: See above HPI for pertinent positives & negatives. A total of 10 systems reviewed and were otherwise negative. PAST MEDICAL HISTORY:See Below , fibromyalgia, hypertension PAST SURGICAL HISTORY:See Below, FAMILY HISTORY:See Below SOCIAL HISTORY:See Below, HOME MEDICATIONS:See Below ALLERGIES:See Below VITALS:See Below PHYSICAL EXAMINATION: GENERAL: Awake, alert, anxious-appearing, in no distress HENT: Normocephalic, atraumatic. Wearing a mask. EYES: Normal conjunctiva. Sclera non-icteric. NECK: Inspection normal. Non-tender. Supple. No nuchal rigidity. FROM. No masses. RESPIRATORY: Clear to auscultation. No wheezes. No rales. Normal respiratory effort. CARDIAC: Borderline tachycardic rate. Normal rhythm. No murmurs. No rubs. Extremities warm and well perfused. Pulses equal. No JVD. GI: Soft, non-distended. No tenderness to palpation. No rebound or guarding. No masses. RECTAL: Deferred. MUSCULOSKELETAL: Atraumatic. Chest examination reveals no tenderness. The back is symmetrical on inspection without obvious abnormality. There is no CVA tenderness to palpation. No joint edema. LOWER EXTREMITIES: Calves are equal size bilaterally and non-tender. No edema. No discoloration. NEURO: Normal sensorium. No sensory or motor deficits noted. SKIN: No rash or jaundice noted. Mina Emanuel MD Past Med/Surg History Medical History Acute renal failure Anxiety Biliary colic Bipolar disorder Chronic pain disorder GERD (gastroesophageal reflux disease) Headache Hypertension Hypertension Hypertensive urgency (01/11/13) Hyponatremia with decreased serum osmolality Surgical History H/O shoulder surgery S/P cholecystectomy Family History Other Hypertension Stroke Social History Smoking Status: Never smoker Tobacco Type: Smokeless Tobacco (Dip or Chew) Second Hand Exposure: No; Hx Alcohol Use: No Hx Substance Use: No Preferred Language: Guyanese Communication Ability: Effective Visual Impairment: No Limitations Hearing Ability: Normal [employer] Insurance Required: No Beliefs That Will Affect Care: None Current Living Situation: Spouse Feels Safe at Home: Yes Assistive Devices: None Allergies Allergies Allergy/AdvReac Type Severity Reaction Status Date / Time bupropion Allergy Severe headache, Verified 04/18/21 22:46 change mental status gemfibrozil Allergy Unknown decreased Verified 04/18/21 22:46 kidney function, muscle aches tamsulosin Allergy Unknown HEADACHES Verified 04/18/21 22:46 allopurinol AdvReac Severe Nausea and Verified 04/18/21 22:46 vomiting aripiprazole AdvReac Severe flicking Verified 04/18/21 22:46 tongue Calcium Channel Blocking AdvReac Severe severe Verified 04/18/21 22:46 Agent Dilt swelling Calcium Channel Blocking AdvReac Severe severe Verified 04/18/21 22:46 Agents-Dih swelling colchicine AdvReac Severe Nausea Verified 04/18/21 22:46 febuxostat [From Uloric] AdvReac Severe Nausea Verified 04/18/21 22:46 hydralazine AdvReac Intermediate LEG PAIN, Verified 04/18/21 22:46 NAUSEA/VOMITING, HEADACHE Home Meds Home Medications Medication Instructions Recorded Confirmed divalproex 500 mg tablet,extended 1,500 mg PO QPM 04/08/18 04/18/21 release 24 hr (Depakote ER) lurasidone 20 mg tablet (Latuda) 20 mg PO QPM 04/08/18 04/18/21 metoprolol tartrate 50 mg tablet 50 mg PO BID 04/08/18 04/18/21 (Lopressor) omeprazole 40 mg capsule,delayed 40 mg PO QPM 04/08/18 04/18/21 release ondansetron HCl 8 mg tablet 8 mg PO DIRECTED PRN 10/01/18 04/18/21 testosterone 10 mg TOPICAL QPM 10/01/18 04/18/21 lisinopril 40 mg tablet 40 mg PO DAILY 09/12/19 04/18/21 ibuprofen 200 mg tablet 800 mg PO DAILY PRN 04/12/21 04/18/21 lorazepam 1 mg tablet 1 mg PO DAILY PRN 04/12/21 04/18/21 metformin 500 mg tablet 500 mg PO BID 04/12/21 04/18/21 morphine 15 mg tablet,extended 15 mg PO BID 04/12/21 04/18/21 release oxycodone 10 mg tablet 10 mg PO Q4H PRN 04/12/21 04/18/21 Previous Rx's Medication Instructions Recorded naloxone 4 mg/actuation nasal spray 1 sprays INTNAS ONCE PRN #2 ea 10/04/18 silodosin 8 mg capsule (Rapaflo) 8 mg PO DAILY #30 cap 06/09/19 hydroxyzine HCl 25 mg tablet 25 mg PO Q8H PRN 7 Days #21 tab 04/13/21 Results & Data (ED) Vital Signs Vital Signs - 24 hr 04/18/21 18:59 04/18/21 21:14 04/18/21 23:15 Temperature 37.2 C Temperature Source Temporal Artery Scan Pulse Rate 108 H 88 Pulse Rate [Apical] 88 83 Respiratory Rate 16 20 21 Respiratory Effort / Characteristics Non-Labored Respiratory Depth Normal Blood Pressure 163/103 H Blood Pressure [Left Arm] 152/90 H 165/108 H Blood Pressure Mean 123 Blood Pressure Mean [Left Arm] 110 127 Blood Pressure Position [Left Arm] Sitting Sitting Pulse Oximetry 97 98 97 Oxygen Delivery Method Room Air Room Air Room Air Sepsis Recent Fever Within 48 Hours No Sepsis New/Unexplained Change in Mental Status N/A Sepsis Action Taken by Nursing No Action Required Laboratory Data Result diagrams: 04/18/21 19:17 04/18/21 19:17 Lab Results 04/18/21 04/18/21 04/18/21 Range/Units 19:17 19:17 19:17 WBC 7.95 (4.8-10.8) K/uL RBC 4.73 (4.7-6.1) M/uL Hgb 14.2 (14.0-18.0) g/dL Hct 42.3 (42-52) % MCV 89.4 (80-100) fL MCH 30.0 (25-34) pg MCHC 33.6 (32-36) g/dL RDW Std Deviation 41.8 (36.4-46.3) fL RDW Coeff of Tamiko 12.7 (11.5-14.5) % Plt Count 185 (130-400) K/uL MPV 9.3 (7.4-10.4) fL Immature Gran % (Auto) 0.5 % Neut % (Auto) 57.9 % Lymph % (Auto) 30.1 % [place] % (Auto) 10.2 % Eos % (Auto) 0.9 % Baso % (Auto) 0.4 % Neut # (Auto) 4.61 (1.4-6.5) K/uL Lymph # (Auto) 2.39 (1.2-3.4) K/uL [place] # (Auto) 0.81 H (0.11-0.59) K/uL Eos # (Auto) 0.07 (0-0.5) K/uL Baso # (Auto) 0.03 (0-0.2) K/uL Immature Gran # (Auto) 0.04 H (0.00-0.02) K/uL D-Dimer 290 (0-500) ug/L FEU Sodium 137 (136-145) mmol/L Potassium 4.2 (3.5-5.1) mmol/L Chloride 103 (98-107) mmol/L Carbon Dioxide 24 (21-32) mmol/L Anion Gap 10 (3-11) BUN 13 (6-23) mg/dl Creatinine 0.97 (0.6-1.4) mg/dl Est Cr Clr Drug Dosing 118.3 ml/min Est GFR ( Amer) 104.3 ml/min Est GFR (Non-Af Amer) 90.0 ml/min BUN/Creatinine Ratio 13.4 (10-20) Glucose 115 H (70-99(Fasting)) mg/dl Calcium 9.5 (8.5-10.1) mg/dl Magnesium (1.7-2.4) mg/dl Total Bilirubin 0.5 (0.2-1.0) mg/dl AST 65 H (13-39) U/L ALT 87 H (7-52) U/L Alkaline Phosphatase 167 H (34-104) U/L Troponin I < 0.03 (0-0.04) ng/ml Total Protein 7.1 (6.0-8.3) gm/dl Albumin 4.2 (3.4-5.0) gm/dl Globulin 2.9 (2.5-4.0) gm/dl Albumin/Globulin Ratio 1.4 (0.9-2) Lipase 40 (11-82) U/L Valproic Acid (50-100) mcg/ml SARS-CoV-2, RNA, NAAT (NEGATIVE) 04/18/21 04/19/21 04/19/21 Range/Units 21:05 00:01 00:01 WBC (4.8-10.8) K/uL RBC (4.7-6.1) M/uL Hgb (14.0-18.0) g/dL Hct (42-52) % MCV (80-100) fL MCH (25-34) pg MCHC (32-36) g/dL RDW Std Deviation (36.4-46.3) fL RDW Coeff of [place] (11.5-14.5) % Plt Count (130-400) K/uL MPV (7.4-10.4) fL Immature Gran % (Auto) % Neut % (Auto) % Lymph % (Auto) % [place] % (Auto) % Eos % (Auto) % Baso % (Auto) % Neut # (Auto) (1.4-6.5) K/uL Lymph # (Auto) (1.2-3.4) K/uL [place] # (Auto) (0.11-0.59) K/uL Eos # (Auto) (0-0.5) K/uL Baso # (Auto) (0-0.2) K/uL Immature Gran # (Auto) (0.00-0.02) K/uL D-Dimer (0-500) ug/L FEU Sodium (136-145) mmol/L Potassium (3.5-5.1) mmol/L Chloride (98-107) mmol/L Carbon Dioxide (21-32) mmol/L Anion Gap (3-11) BUN (6-23) mg/dl Creatinine (0.6-1.4) mg/dl Est Cr Clr Drug Dosing ml/min Est GFR ( Amer) ml/min Est GFR (Non-Af Amer) ml/min BUN/Creatinine Ratio (10-20) Glucose (70-99(Fasting)) mg/dl Calcium (8.5-10.1) mg/dl Magnesium 1.6 L (1.7-2.4) mg/dl Total Bilirubin (0.2-1.0) mg/dl AST (13-39) U/L ALT (7-52) U/L Alkaline Phosphatase (34-104) U/L Troponin I < 0.03 (0-0.04) ng/ml Total Protein (6.0-8.3) gm/dl Albumin (3.4-5.0) gm/dl Globulin (2.5-4.0) gm/dl Albumin/Globulin Ratio (0.9-2) Lipase (11-82) U/L Valproic Acid 49 L (50-100) mcg/ml SARS-CoV-2, RNA, NAAT NEGATIVE (NEGATIVE) Administered Medications Divalproex Sodium (Divalproex Extended Release 500 Mg Tab) 1,500 mg PO QPM KERON Stop: 05/19/21 01:09 Last Admin: 04/19/21 02:06 Dose: 1,500 mg Documented by: [id number] Lurasidone HCl (Lurasidone Hcl 40 Mg Tab) 20 mg PO QPM KERON Stop: 05/19/21 01:09 Last Admin: 04/19/21 02:07 Dose: 20 mg Documented by: [id number] Oxycodone HCl (Oxycodone Hcl Ir 5 Mg Tab (Immediate Release)) 10 mg PO Q4H PRN PRN Reason: Pain Stop: 05/03/21 01:16 Last Admin: 04/19/21 01:50 Dose: 10 mg Documented by: [id number] Discontinued Medications Aspirin (Aspirin Chew 324 Mg) 324 mg PO NOW STA Stop: 04/18/21 22:37 Last Admin: 04/18/21 23:15 Dose: 324 mg Documented by: [id number] Carvedilol (Carvedilol 3.125 Mg Tab) 3.125 mg PO NOW ONE Stop: 04/19/21 01:13 Last Admin: 04/19/21 01:51 Dose: 3.125 mg Documented by: [id number] Dexamethasone Sodium Phosphate (DexamethasonePf 10 Mg/Ml Vial) 10 mg IV NOW ONE Stop: 04/18/21 22:37 Last Admin: 04/18/21 23:15 Dose: 10 mg Documented by: [id number] Ketorolac Tromethamine (Ketorolac Tromethamine 15 Mg/Ml Vial) 10 mg IV NOW ONE Stop: 04/18/21 22:37 Last Admin: 04/18/21 23:15 Dose: 10 mg Documented by: [id number] Metoclopramide HCl (Metoclopramide Hcl Inj 5 Mg/Ml 2 Ml Vial) 10 mg IV NOW STA Stop: 04/18/21 22:37 Last Admin: 04/18/21 23:15 Dose: 10 mg Documented by: [id number] Oxycodone HCl (Oxycodone Hcl Ir 5 Mg Tab (Immediate Release)) 5 mg PO NOW STA Stop: 04/18/21 21:24 Last Admin: 04/18/21 21:42 Dose: 5 mg Documented by: [id number] Pantoprazole Sodium (Pantoprazole 40 Mg Tab) 40 mg PO NOW STA Stop: 04/19/21 01:11 Last Admin: 04/19/21 01:50 Dose: 40 mg Documented by: [id number] Imaging Data Radiologist's Impression: Chest X-Ray 04/18/21 19:15 XR chest 1V portable HISTORY: 50 years-old Male Chest Pain acute atypical chest pain COMPARISON: Chest radiograph 04/12/2021 TECHNIQUE: Portable AP view of the chest FINDINGS: The cardiomediastinal and hilar silhouettes are within normal limits. No pn eumothorax, pleural effusion, airspace consolidation or overt pulmonary edema. Spondylitic spurring of the spine. IMPRESSION: No acute process. ACT 112: Negative or not required by law. The above report was generated using voice recognition software. It may contain grammatical, syntax or spelling errors. Electronically signed by: Trae Magdaleno M.D. 04/18/2021 7:28 PM Discharge Plan Visit Data Chief Complaint: Chest Pain Stated Complaint: CHEST PAIN, HEADACHE, DIZZINESS, HIGH BP ED Provider: Mina Emanuel Discharge Problem: Chest pain, Hypertensive urgency, Headache
[2021-04-18] MEDS ORDERED: oxyCODONE HCL IR 5 MG TAB (IMMEDIATE RELEASE) PO STA (21:23)
[2021-04-18] MEDS ORDERED: ASPIRIN CHEW 324 MG PO STA (22:36)
[2021-04-18] MEDS ORDERED: METOCLOPRAMIDE HCL INJ 5 MG/ML 2 ML VIAL IV STA (22:36)
[2021-04-18] MEDS ORDERED: KETOROLAC TROMETHAMINE 15 MG/ML VIAL IV ONE (22:36)
[2021-04-18] MEDS ORDERED: dexAMETHasone**PF** 10 MG/ML VIAL IV ONE (22:36)
[2021-04-19 00:39] LABS: Troponin I < 0.03 ng/ml (0-0.04)
[2021-04-19 00:43] LABS: Magnesium 1.6 mg/dl (1.7-2.4)
--- NOTE | 2021-04-19 01:09 | History & Physical Report ---
Date of Service April 19, 2021 Assessment & Plan (1) Chest pain: Plan: Multifactorial : uncontrolled HTN, anxiety contributory Possible GERD component given heartburn quality from time to time. Rule out ACS given patient risk factors for ischemic heart disease. Headache symptoms secondary to uncontrolled hypertension/anxiety DM2 diet-controlled, new diagnosis with hemoglobin A1c of 6.06 February 2021 Chronic transaminitis likely NAFLD, hepatic steatosis on prior abdominal CT imaging fibromyalgia/chronic pain on narcotic Rx JENNY, newly compliant with home CPAP OBS PCU Analgesia, anxiolytic as needed DC hydralazine secondary to intolerance Continue lisinopril. Coreg in place of Lopressor. Increase once daily PPI dosing to twice daily Follow troponin TTE, Cardiology consult (Dr. De Leon as per patient's family request ) RE Chest pain N.p.o. until patient seen by cardiology in a.m. in anticipation of procedure. Aspirin for CAD prevention until ACS ruled out Basal insulin adjusted for n.p.o. status, ISS BG goal one 110-1 40, carb count coverage DVT prophylaxis per Lovenox subcu Full code Patient requesting updates for providers. Mariam Rodrigo, contact #[phone]. Text document was generated using [email or web address] voice recognition software. It may contain grammatical or spelling errors. Kindly contact undersigned for clarification of any documentation item in question. History of Present Illness Chief Complaint: Chest pain, headache Primary Care Provider: Mario Estevez MD History obtained from patient, family, and records. Medical history significant for hypertension, DM2 diet-controlled, fibromyalgia/chronic pain on narcotic Rx, JENNY on CPAP, anxiety/mood disorder. Last confinement last week for hypertensive urgency. Patient presenting with chest pain and headache complaints. Hydralazine added to metoprolol and lisinopril medications. Hydroxyzine as needed added to anxiety regimen. At home, patient not feeling any better. Still with intermittent achy headaches and substernal pain symptoms. Chest pain sometimes with a burning quality as per patient. Anxiety the same as per patient with usual stressors from job and home. SBP 140-1 80s. Patient stopped taking hydralazine because it made him feel sicker. Trying to be more compliant with CPAP machine. Denies dietary indiscretion. Patient also stopped taking NSAIDs after last visit after being counseled about adverse effects on BP. Patient had episode of chest pain with diaphoreses today. No unusual cough symptoms. No fever, no chills. Patient and wondering if he may be having a heart attack. At the ER, Decadron given for headache symptoms. Medical History as above Surgical History : Foot surgery, cholecystectomy, biceps rupture surgery, shoulder surgeries, vasectomy Family History : Heart disease, breast cancer, ulcerative colitis, brain cancer, Behcet's syndrome Personal/Social history : Non-smoker, no EtOH intake, employee's representative Allergies Allergy/AdvReac Type Severity Reaction Status Date / Time bupropion Allergy Severe headache, Verified 04/18/21 22:46 change mental status gemfibrozil Allergy Unknown decreased Verified 04/18/21 22:46 kidney function, muscle aches tamsulosin Allergy Unknown HEADACHES Verified 04/18/21 22:46 allopurinol AdvReac Severe Nausea and Verified 04/18/21 22:46 vomiting aripiprazole AdvReac Severe flicking Verified 04/18/21 22:46 tongue Calcium Channel Blocking AdvReac Severe severe Verified 04/18/21 22:46 Agent Dilt swelling Calcium Channel Blocking AdvReac Severe severe Verified 04/18/21 22:46 Agents-Dih swelling colchicine AdvReac Severe Nausea Verified 04/18/21 22:46 febuxostat [From Uloric] AdvReac Severe Nausea Verified 04/18/21 22:46 hydralazine AdvReac Intermediate LEG PAIN, Verified 04/18/21 22:46 NAUSEA/VOMITING, HEADACHE Home Medications Medication Instructions Recorded Confirmed Type divalproex 500 mg tablet,extended 1,500 mg PO QPM 04/08/18 04/18/21 History release 24 hr (Depakote ER) lurasidone 20 mg tablet (Latuda) 20 mg PO QPM 04/08/18 04/18/21 History metoprolol tartrate 50 mg tablet 50 mg PO BID 04/08/18 04/18/21 History (Lopressor) omeprazole 40 mg capsule,delayed 40 mg PO QPM 04/08/18 04/18/21 History release ondansetron HCl 8 mg tablet 8 mg PO DIRECTED PRN 10/01/18 04/18/21 History testosterone 10 mg TOPICAL QPM 10/01/18 04/18/21 History naloxone 4 mg/actuation nasal spray 1 sprays INTNAS ONCE PRN #2 ea 10/04/18 04/18/21 Rx silodosin 8 mg capsule (Rapaflo) 8 mg PO DAILY #30 cap 06/09/19 04/18/21 Rx lisinopril 40 mg tablet 40 mg PO DAILY 09/12/19 04/18/21 History ibuprofen 200 mg tablet 800 mg PO DAILY PRN 04/12/21 04/18/21 History lorazepam 1 mg tablet 1 mg PO DAILY PRN 04/12/21 04/18/21 History metformin 500 mg tablet 500 mg PO BID 04/12/21 04/18/21 History morphine 15 mg tablet,extended 15 mg PO BID 04/12/21 04/18/21 History release oxycodone 10 mg tablet 10 mg PO Q4H PRN 04/12/21 04/18/21 History hydroxyzine HCl 25 mg tablet 25 mg PO Q8H PRN 7 Days #21 tab 04/13/21 04/18/21 Rx Past Med/Surg History Medical History Acute renal failure Anxiety Biliary colic Bipolar disorder Chronic pain disorder GERD (gastroesophageal reflux disease) Headache Hypertension Hypertension Hypertensive urgency (01/11/13) Hyponatremia with decreased serum osmolality Surgical History H/O shoulder surgery S/P cholecystectomy Family History Other Hypertension Stroke Social History Smoking Status: Never smoker Tobacco Type: Smokeless Tobacco (Dip or Chew) Second Hand Exposure: No; Hx Alcohol Use: No Hx Substance Use: No Preferred Language: Irish Communication Ability: Effective Visual Impairment: No Limitations Hearing Ability: Normal Electronic Publisher Required: No Beliefs That Will Affect Care: None Current Living Situation: Spouse Feels Safe at Home: Yes Assistive Devices: None Review of Systems Review of Systems: As per HPI, all 10 systems reviewed, all other ROS negative Physical Exam Physical Exam: GENERAL: Anxious, obese, no respiratory distress SKIN: Normal color, warm HEENT: [place] palpebral conjunctivae, no ptosis, moist buccal mucosa NECK : Supple, short neck, no tenderness CHEST : CTA, no tenderness HEART : RRR, no obvious murmurs ABDOMEN: Some distention, nontender EXTREMITIES : Minimal LE swelling, no LE tenderness, no other conspicuous deformities noted NEUROLOGIC : Coherent, no facial asymmetry, no other gross focality Results & Data Results & Data ([facility]) Vital Signs (Past 12 Hours) Vital Signs Temp Pulse Pulse Resp BP BP Pulse Ox 04/18/21 23:15 83 21 165/108 H 97 04/18/21 21:14 88 88 20 152/90 H 98 04/18/21 18:59 37.2 C 108 H 16 163/103 H 97 Laboratory Results Laboratory Results WBC 7.95 K/uL (4.8-10.8) 04/18/21 19:17 RBC 4.73 M/uL (4.7-6.1) 04/18/21 19:17 Hgb 14.2 g/dL (14.0-18.0) 04/18/21 19:17 Hct 42.3 % (42-52) 04/18/21 19:17 MCV 89.4 fL (80-100) 04/18/21 19:17 MCH 30.0 pg (25-34) 04/18/21 19:17 MCHC 33.6 g/dL (32-36) 04/18/21 19:17 RDW Std Deviation 41.8 fL (36.4-46.3) 04/18/21 19:17 RDW Coeff of Tamiko 12.7 % (11.5-14.5) 04/18/21 19:17 Plt Count 185 K/uL (130-400) 04/18/21 19:17 MPV 9.3 fL (7.4-10.4) 04/18/21 19:17 Immature Gran % (Auto) 0.5 % 04/18/21 19:17 Neut % (Auto) 57.9 % 04/18/21 19:17 Lymph % (Auto) 30.1 % 04/18/21 19:17 [place] % (Auto) 10.2 % 04/18/21 19:17 Eos % (Auto) 0.9 % 04/18/21 19:17 Baso % (Auto) 0.4 % 04/18/21 19:17 Neut # (Auto) 4.61 K/uL (1.4-6.5) 04/18/21 19:17 Lymph # (Auto) 2.39 K/uL (1.2-3.4) 04/18/21 19:17 [place] # (Auto) 0.81 K/uL (0.11-0.59) H 04/18/21 19:17 Eos # (Auto) 0.07 K/uL (0-0.5) 04/18/21 19:17 Baso # (Auto) 0.03 K/uL (0-0.2) 04/18/21 19:17 Immature Gran # (Auto) 0.04 K/uL (0.00-0.02) H 04/18/21 19:17 D-Dimer 290 ug/L FEU (0-500) 04/18/21 19:17 Sodium 137 mmol/L (136-145) 04/18/21 19:17 Potassium 4.2 mmol/L (3.5-5.1) 04/18/21 19:17 Chloride 103 mmol/L (98-107) 04/18/21 19:17 Carbon Dioxide 24 mmol/L (21-32) 04/18/21 19:17 Anion Gap 10 (3-11) 04/18/21 19:17 BUN 13 mg/dl (6-23) 04/18/21 19:17 Creatinine 0.97 mg/dl (0.6-1.4) 04/18/21 19:17 Est Cr Clr Drug Dosing 118.3 ml/min 04/18/21 19:17 Est GFR ( Amer) 104.3 ml/min 04/18/21 19:17 Est GFR (Non-Af Amer) 90.0 ml/min 04/18/21 19:17 BUN/Creatinine Ratio 13.4 (10-20) 04/18/21 19:17 Glucose 115 mg/dl (70-99(Fasting)) H 04/18/21 19:17 Calcium 9.5 mg/dl (8.5-10.1) 04/18/21 19:17 Magnesium 1.6 mg/dl (1.7-2.4) L 04/19/21 00:01 Total Bilirubin 0.5 mg/dl (0.2-1.0) 04/18/21 19:17 AST 65 U/L (13-39) H 04/18/21 19:17 ALT 87 U/L (7-52) H 04/18/21 19:17 Alkaline Phosphatase 167 U/L (34-104) H 04/18/21 19:17 Troponin I < 0.03 ng/ml (0-0.04) 04/19/21 00:01 Total Protein 7.1 gm/dl (6.0-8.3) 04/18/21 19:17 Albumin 4.2 gm/dl (3.4-5.0) 04/18/21 19:17 Globulin 2.9 gm/dl (2.5-4.0) 04/18/21 19:17 Albumin/Globulin Ratio 1.4 (0.9-2) 04/18/21 19:17 Lipase 40 U/L (11-82) 04/18/21 19:17 Valproic Acid 49 mcg/ml (50-100) L 04/19/21 00:01 SARS-CoV-2, RNA, NAAT NEGATIVE (NEGATIVE) 04/18/21 21:05 Impressions Chest X-Ray 04/18/21 19:15 XR chest 1V portable HISTORY: 50 years-old Male Chest Pain acute atypical chest pain COMPARISON: Chest radiograph 04/12/2021 TECHNIQUE: Portable AP view of the chest FINDINGS: The cardiomediastinal and hilar silhouettes are within normal limits. No pneumothorax, pleural effusion, airspace consolidation or overt pulmonary edema. Spondylitic spurring of the spine. IMPRESSION: No acute process. ACT 112: Negative or not required by law. The above report was generated using voice recognition software. It may contain grammatical, syntax or spelling errors. Electronically signed by: Trae Magdaleno M.D. 04/18/2021 7:28 PM Diagnostic Findings EKG as per my interpretation: Rate 95, NSR, normal axis, no ischemia
[2021-04-19] MEDS ORDERED: PANTOprazole 40 MG TAB PO STA (01:10)
[2021-04-19] MEDS ORDERED: LURASIDONE HCL 40 MG TAB PO SCH (01:10)
[2021-04-19] MEDS ORDERED: DIVALPROEX EXTENDED RELEASE 500 MG TAB PO SCH (01:10)
[2021-04-19] MEDS ORDERED: carvediloL 3.125 MG TAB PO ONE (01:12)
[2021-04-19] MEDS ORDERED: GLUCAGON FOR INJ 1 MG VIAL SQ PRN (01:43)
[2021-04-19] MEDS ORDERED: MoRPHine SULFATE 4 MG/ML 1 ML CARP\\VIAL IV PRN (01:43)
[2021-04-19] MEDS ORDERED: PROMETHAZINE HCL 12.5 MG in SODIUM CHLORIDE 0.9% 50 ML IV PRN (01:43)
[2021-04-19] MEDS ORDERED: hydrOXYzine HCl 25 MG TAB PO PRN (01:43)
[2021-04-19] MEDS ORDERED: CARBOHYDRATES FOR HYPOGLYCEMIA PO PRN (01:43)
[2021-04-19] MEDS ORDERED: NALOXONE NASAL SPRAY 4 MG ER HOMEPACK PRN (01:43)
[2021-04-19] MEDS ORDERED: GLUCOSE 40% GEL 15 GM TUBE PO PRN (01:43)
[2021-04-19] MEDS ORDERED: LORazepam 1 MG TAB PO PRN (01:43)
[2021-04-19] MEDS ORDERED: LORazepam 0.5 MG/1 ML VIAL IV PRN (01:43)
[2021-04-19] MEDS ORDERED: GLUCOSE 10 TABS/TUBE PO PRN (01:43)
[2021-04-19] MEDS ORDERED: DEXTROSE 50% 50 ML SYRINGE IV PRN (01:43)
[2021-04-19] MEDS: oxyCODONE HCL IR 5 MG TAB (IMMEDIATE RELEASE) PO PRN ×4 (01:50→17:01)
[2021-04-19] MEDS ORDERED: SODIUM CHLORIDE 0.9% 1000ML 1,000 ML IV SCH (02:00)
[2021-04-19] MEDS ORDERED: MAGNESIUM SULFATE / D5W 1 GM/100 ML BAG IV ONE (02:31)
[2021-04-19] MEDS: INSULIN ASPART PER UNIT SC SCH ×4 (03:24→17:30)
[2021-04-19] MEDS ORDERED: INSULIN GLARGINE SOLOSTAR 100 UNITS/ML 3 ML PEN SC STA (03:33)
[2021-04-19 06:18] LABS: Basophils # (auto) 0.01 K/uL (0-0.2); Basophils % (auto) 0.3 %; Eosinophils # (auto) 0.01 K/uL (0-0.5); Eosinophils % (auto) 0.3 %; Hemoglobin 13.3 g/dL (14.0-18.0); Immature Granulocytes # (auto) 0.01 K/uL (0.00-0.02); Immature Granulocytes % (auto) 0.3 %; Lymphocytes # (auto) 1.05 K/uL (1.2-3.4); Lymphocytes % (auto) 27.4 %; Mean Corpuscular Hgb Conc 33.3 g/dL (32-36); Mean Corpuscular Volume 90.1 fL (80-100); Mean Platelet Volume 9.7 fL (7.4-10.4); Monocytes # (auto) 0.09 K/uL (0.11-0.59); Monocytes % (auto) 2.3 %; Neutrophils # (auto) 2.66 K/uL (1.4-6.5); Neutrophils % (auto) 69.4 %; Platelet Count 166 K/uL (130-400); RDW Coefficient of Variation 12.7 % (11.5-14.5); RDW Standard Deviation 41.9 fL (36.4-46.3); Red Blood Count 4.44 M/uL (4.7-6.1); White Blood Count 3.83 K/uL (4.8-10.8)
[2021-04-19 06:33] LABS: Partial Thromboplastin Time 25.8 Seconds (21.0-31.0)
[2021-04-19 06:48] LABS: BUN Creatinine Ratio 16.9 (10-20); Calcium 9.3 mg/dl (8.5-10.1); Chol HDL Ratio 9.4 (0-5); Creatinine Clr Calc Pharmacy 149.1 ml/min; Est GFR (African American) 121.8 ml/min; Est GFR (Non-African American) 105.1 ml/min; Potassium 5.3 mmol/L (3.5-5.1)
--- NOTE | 2021-04-19 07:09 | CT Scan Report ---
CT SCAN OF THE BRAIN WITHOUT IV CONTRAST CLINICAL HISTORY: Fall. Headache. Hypertension. COMPARISON STUDY: CT of the brain dated 04/12/2021. TECHNIQUE: Unenhanced axial CT scan of the brain is performed from the vertex to the skull base. A d ose lowering technique was utilized adhering to the principles of ALARA. CT DOSE: 614.27 mGy.cm FINDINGS: Brain parenchyma: The brain parenchyma is normal in appearance. There is no hemorrhage, mass effect, or evidence of acute territorial ischemia by CT criteria. Flood-white matter differentiation is preser olga lidia. No extra-axial fluid collection is seen. Ventricles, sulci, cisterns: Normal in configuration. Intracranial vasculature: There is mild atherosclerotic calcification of the cavernous carotid arteri es. Calvarium: Unremarkable. Sinuses and mastoids: There is mild mucosal thickening within the sphenoid sinuses. The remaining vis ualized paranasal sinuses are clear. The mastoid air cells are well pneumatized. Orbits: The bony orbits are grossly intact. IMPRESSION: There is no hemorrhage, mass effect, or evidence of acute territorial ischemia by CT pretty cooney. ACT 112: Negative or not required by law. Electronically signed by: Tonio Rodriguez M.D. 04/19/2021 7:07 AM
--- NOTE | 2021-04-19 08:10 | Cardiology Consultation ---
Date of Consultation April 19, 2021 Assessment & Plan (1) Chest pain: (2) Hypertensive urgency: (3) Opiate dependence: (4) Hyponatremia with decreased serum osmolality: Patient admitted for recurrent hypertensive urgency and chest pain with headache. Head CT unremarkable. Serial cardiac enzymes are normal. Echo results are pending. BP has trended down with transition to carvedilol 3.125 mg BID. Room to titrate if needed. No bradycardia. Stop metoprolol Continue home dose lisinopril. He has been intolerant of CCB including amlodipine due to swelling. He was previously on HCTZ for edema, but this was stopped due to gout and hyponatremia. He most recently felt ill with higher dose hydralazine. If BP remains controlled today and echo is unremarkable, likely discharge later today. Given his chest pain and cardiac risk factors, would recommend possible outpatient stress test. Case discussed with Dr. De Leon Supervising Physician Co-Signing Physician Notes Supervising Physician Attestation: I have personally performed a history and physical examination on the patient. I agree with the physician clothing sales assistant's findings and plan as documented with the following additions. Subjective: Patient is feeling improved. Vague left-sided chest discomfort noted on presentation has resolved. Blood pressure much improved with systolic reading in the 130s at the time my assessment. Sinus rhythm noted on telemetry. EKG performed on presentation normal. He has a history of bipolar disease per his outpatient chart. 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 Exam: Temp Pulse Resp BP Pulse Ox 37.2 C 85 18 135/93 96 04/18/21 18:59 04/19/21 08:32 04/19/21 06:18 04/19/21 08:32 04/19/21 08:32 Cardiovascular regular rhythm, no murmurs No edema Data: Echocardiogram with findings consistent with high blood pressure related heart disease with moderate concentric left ventricular hypertrophy, no left ventricular regional wall motion abnormalities, normal LVEF, 60 to 65%, grade II diastolic dysfunction, no significant valvular stenosis or regurgitation Assessment and Plan: Difficult control hypertension: Patient did not tolerate recent trial of hydralazine with noted atypical side effects. Seems to be doing better on carvedilol 3.125 twice daily. Consider discharge on 6.25 mg twice daily, along with lisinopril 40 mg daily. Chest pain: Recommend outpatient Lexiscan nuclear stress test Dyslipidemia: Recent outpatient lipid panel February, with findings of hypertriglyceridemia, 541, total cholesterol 231, HDL cholesterol low at 24, LDL cholesterol 125 Not sure if for panel performed today is in the fasting state, but LDL cholesterol very high 201 mg/dl Only historical trial of statin I see in his outpatient record was a recent travel of simvastatin which the patient states he did not tolerate. He is on Vascepa for high triglycerides. Would recommend a trial of rosuvastatin for LDL lowering effect given his history of diabetes and high blood pressure, but will hold off on this at present has given the patient's complex medication list and risk of complications related to polypharmacy, along with recent intolerance to medication change, I think it is most prudent to focus on the blood pressure only today. -Stable for discharge from cardiology standpoint. Daniel De Leon, DO History of Present Illness Reason for Consultation: Hypertensive Urgency; chest pain Requesting Physician: Dr. Willard Attending Physician: Dr. De Leon History of Present Illness Patient is a 50 year old male who was admitted to [facility] with complaints of chest pain and hypertension. History includes chronic pain syndrome which he takes chronic narcotics, bipolar disorder with significant anxiety/PTSD, hypertension, hyponatremia, BPH, multiple medication intolerances. Per review of outpatient records, amlodipine previously caused swelling and hctz contributed to gout. He denies prior cardiac history including CAD/[place], CHF, valvular disease, or arrhythmias. He was admitted last week with chest pain and hypertensive urgency along with worsening anxiety. Hydralazine was increased from 10 mg BID to 25 mg TID. Unfortunately when patient returned home, he felt the hydralazine was making him sick and he stopped medication. His chest pain returned with associated uncontrolled hypertension. Yesterday he described a substernal ache in his chest for several hours, therefore he returned to the ER. EKG was without acute changes. Troponin has been unr emarkable with multiple serial tests. He was significantly hypertensive on arrival. Carvedilol was initiated in place of his home metoprolol tartrate. At time of consult, patient feeling improved. Having echo done. No recurrent chest pain since last night. NO SOB. No orthopnea, PND or increased edema. Notes chronic pain issues, but controlled. Reports this "chest pain" was different than his chronic pain. he had an echo in 2017 which was essentially normal. Allergies Allergy/AdvReac Type Severity Reaction Status Date / Time bupropion Allergy Severe headache, Verified 04/18/21 22:46 change mental status gemfibrozil Allergy Unknown decreased Verified 04/18/21 22:46 kidney function, muscle aches tamsulosin Allergy Unknown HEADACHES Verified 04/18/21 22:46 allopurinol AdvReac Severe Nausea and Verified 04/18/21 22:46 vomiting aripiprazole AdvReac Severe flicking Verified 04/18/21 22:46 tongue Calcium Channel Blocking AdvReac Severe severe Verified 04/18/21 22:46 Agent Dilt swelling Calcium Channel Blocking AdvReac Severe severe Verified 04/18/21 22:46 Agents-Dih swelling colchicine AdvReac Severe Nausea Verified 04/18/21 22:46 febuxostat [From Uloric] AdvReac Severe Nausea Verified 04/18/21 22:46 hydralazine AdvReac Intermediate LEG PAIN, Verified 04/18/21 22:46 NAUSEA/VOMITING, HEADACHE Home Medications Medication Instructions Recorded Confirmed Type divalproex 500 mg tablet,extended 1,500 mg PO QPM 04/08/18 04/18/21 History release 24 hr (Depakote ER) lurasidone 20 mg tablet (Latuda) 20 mg PO QPM 04/08/18 04/18/21 History metoprolol tartrate 50 mg tablet 50 mg PO BID 04/08/18 04/18/21 History (Lopressor) omeprazole 40 mg capsule,delayed 40 mg PO QPM 04/08/18 04/18/21 History release ondansetron HCl 8 mg tablet 8 mg PO DIRECTED PRN 10/01/18 04/18/21 History testosterone 10 mg TOPICAL QPM 10/01/18 04/18/21 History naloxone 4 mg/actuation nasal spray 1 sprays INTNAS ONCE PRN #2 ea 10/04/18 04/18/21 Rx silodosin 8 mg capsule (Rapaflo) 8 mg PO DAILY #30 cap 06/09/19 04/18/21 Rx lisinopril 40 mg tablet 40 mg PO DAILY 09/12/19 04/18/21 History ibuprofen 200 mg tablet 800 mg PO DAILY PRN 04/12/21 04/18/21 History lorazepam 1 mg tablet 1 mg PO DAILY PRN 04/12/21 04/18/21 History metformin 500 mg tablet 500 mg PO BID 04/12/21 04/18/21 History morphine 15 mg tablet,extended 15 mg PO BID 04/12/21 04/18/21 History release oxycodone 10 mg tablet 10 mg PO Q4H PRN 04/12/21 04/18/21 History hydroxyzine HCl 25 mg tablet 25 mg PO Q8H PRN 7 Days #21 tab 04/13/21 04/18/21 Rx Patient History Medical History Acute renal failure Anxiety Biliary colic Bipolar disorder Chronic pain disorder GERD (gastroesophageal reflux disease) Headache Hypertension Hypertension Hypertensive urgency (01/11/13) Hyponatremia with decreased serum osmolality Surgical History H/O shoulder surgery S/P cholecystectomy Family History Other Hypertension Stroke Social History Smoking Status: Never smoker Tobacco Type: Smokeless Tobacco (Dip or Chew) Second Hand Exposure: No; Do You Dip or Chew Tobacco: Yes; Tobacco Cessation Education Requested by Patient: No Hx Alcohol Use: No Hx Substance Use: No Preferred Language: Croatian Communication Ability: Effective Visual Impairment: No Limitations Hearing Ability: Normal Stacker Required: No Beliefs That Will Affect Care: None Current Living Situation: Spouse Other Information That Helps Us Care for You: No Feels Safe at Home: Yes Safety Concerns: Feels Safe At This Time Assistive Devices: CPAP and Glasses Review of Systems Review of Systems: All systems reviewed & are unremarkable except as noted in HPI & below Physical Exam Constitutional: WD/WN, vitals as above Neck: trachea midline, no thyromegaly Respiratory: normal respiratory effort, lungs clear to auscultation Cardiovascular: RRR, no murmur, no edema Gastrointestinal (Abdomen): normal bowel sounds, soft, nontender, no hepatosplenomegaly Skin: no rashes, warm and dry Psychiatric: A+Ox3, euthymic affect Results & Data (MN) Vital Signs (Past 12 Hours) Vital Signs Pulse Pulse Resp BP Pulse Ox Pulse Ox 04/19/21 06:18 90 18 133/89 93 04/19/21 01:43 101 H 16 155/105 H 95 95 04/18/21 23:15 83 21 165/108 H 97 04/18/21 21:14 88 88 20 152/90 H 98 Laboratory Results 04/19/21 04/19/21 04/19/21 Range/Units 06:10 05:51 05:51 WBC (4.8-10.8) K/uL RBC (4.7-6.1) M/uL Hgb (14.0-18.0) g/dL Hct (42-52) % MCV (80-100) fL MCH (25-34) pg MCHC (32-36) g/dL RDW Std Deviation (36.4-46.3) fL RDW Coeff of Tamiko (11.5-14.5) % Plt Count (130-400) K/uL MPV (7.4-10.4) fL Immature Gran % (Auto) % Neut % (Auto) % Lymph % (Auto) % [place] % (Auto) % Eos % (Auto) % Baso % (Auto) % Neut # (Auto) (1.4-6.5) K/uL Lymph # (Auto) (1.2-3.4) K/uL [place] # (Auto) (0.11-0.59) K/uL Eos # (Auto) (0-0.5) K/uL Baso # (Auto) (0-0.2) K/uL Immature Gran # (Auto) (0.00-0.02) K/uL APTT 25.8 (21.0-31.0) Seconds PTT Ratio 1.0 D-Dimer (0-500) ug/L FEU Sodium 132 L (136-145) mmol/L Potassium 5.3 H D (3.5-5.1) mmol/L Chloride 102 (98-107) mmol/L Carbon Dioxide 22 (21-32) mmol/L Anion Gap 8 (3-11) BUN 13 (6-23) mg/dl Creatinine 0.77 (0.6-1.4) mg/dl Est Cr Clr Drug Dosing 149.1 ml/min Est GFR ( Amer) 121.8 ml/min Est GFR (Non-Af Amer) 105.1 ml/min BUN/Creatinine Ratio 16.9 (10-20) Glucose 155 H (70-99(Fasting)) mg/dl POC Glucose 155 H (70-99) mg/dl Calcium 9.3 (8.5-10.1) mg/dl Magnesium 2.0 (1.7-2.4) mg/dl Total Bilirubin (0.2-1.0) mg/dl AST (13-39) U/L ALT (7-52) U/L Alkaline Phosphatase (34-104) U/L Troponin I (0-0.04) ng/ml Total Protein (6.0-8.3) gm/dl Albumin (3.4-5.0) gm/dl Globulin (2.5-4.0) gm/dl Albumin/Globulin Ratio (0.9-2) Triglycerides 249 H (0-150) mg/dl Cholesterol 281 H (0-200) mg/dl LDL Cholesterol, Calc 201 mg/dl VLDL Cholesterol, Calc 50 H (0-30) mg/dl HDL Cholesterol 30 mg/dl Cholesterol/HDL Ratio 9.4 H (0-5) Lipase (11-82) U/L Valproic Acid (50-100) mcg/ml SARS-CoV-2, RNA, NAAT (NEGATIVE) 04/19/21 04/19/21 04/19/21 Range/Units 05:51 05:51 03:12 WBC 3.83 L (4.8-10.8) K/uL RBC 4.44 L (4.7-6.1) M/uL Hgb 13.3 L (14.0-18.0) g/dL Hct 40.0 L (42-52) % MCV 90.1 (80-100) fL MCH 30.0 (25-34) pg MCHC 33.3 (32-36) g/dL RDW Std Deviation 41.9 (36.4-46.3) fL RDW Coeff of Tamiko 12.7 (11.5-14.5) % Plt Count 166 (130-400) K/uL MPV 9.7 (7.4-10.4) fL Immature Gran % (Auto) 0.3 % Neut % (Auto) 69.4 % Lymph % (Auto) 27.4 % [place] % (Auto) 2.3 % Eos % (Auto) 0.3 % Baso % (Auto) 0.3 % Neut # (Auto) 2.66 (1.4-6.5) K/uL Lymph # (Auto) 1.05 L (1.2-3.4) K/uL [place] # (Auto) 0.09 L (0.11-0.59) K/uL Eos # (Auto) 0.01 (0-0.5) K/uL Baso # (Auto) 0.01 (0-0.2) K/uL Immature Gran # (Auto) 0.01 (0.00-0.02) K/uL APTT (21.0-31.0) Seconds PTT Ratio D-Dimer (0-500) ug/L FEU Sodium (136-145) mmol/L Potassium (3.5-5.1) mmol/L Chloride (98-107) mmol/L Carbon Dioxide (21-32) mmol/L Anion Gap (3-11) BUN (6-23) mg/dl Creatinine (0.6-1.4) mg/dl Est Cr Clr Drug Dosing ml/min Est GFR ( Amer) ml/min Est GFR (Non-Af Amer) ml/min BUN/Creatinine Ratio (10-20) Glucose (70-99(Fasting)) mg/dl POC Glucose 191 H (70-99) mg/dl Calcium (8.5-10.1) mg/dl Magnesium (1.7-2.4) mg/dl Total Bilirubin (0.2-1.0) mg/dl AST (13-39) U/L ALT (7-52) U/L Alkaline Phosphatase (34-104) U/L Troponin I < 0.03 (0-0.04) ng/ml Total Protein (6.0-8.3) gm/dl Albumin (3.4-5.0) gm/dl Globulin (2.5-4.0) gm/dl Albumin/Globulin Ratio (0.9-2) Triglycerides (0-150) mg/dl Cholesterol (0-200) mg/dl LDL Cholesterol, Calc mg/dl VLDL Cholesterol, Calc (0-30) mg/dl HDL Cholesterol mg/dl Cholesterol/HDL Ratio (0-5) Lipase (11-82) U/L Valproic Acid (50-100) mcg/ml SARS-CoV-2, RNA, NAAT (NEGATIVE) 04/19/21 04/19/21 04/18/21 Range/Units 00:01 00:01 21:05 WBC (4.8-10.8) K/uL RBC (4.7-6.1) M/uL Hgb (14.0-18.0) g/dL Hct (42-52) % MCV (80-100) fL MCH (25-34) pg MCHC (32-36) g/dL RDW Std Deviation (36.4-46.3) fL RDW Coeff of Tamiko (11.5-14.5) % Plt Count (130-400) K/uL MPV (7.4-10.4) fL Immature Gran % (Auto) % Neut % (Auto) % Lymph % (Auto) % [place] % (Auto) % Eos % (Auto) % Baso % (Auto) % Neut # (Auto) (1.4-6.5) K/uL Lymph # (Auto) (1.2-3.4) K/uL [place] # (Auto) (0.11-0.59) K/uL Eos # (Auto) (0-0.5) K/uL Baso # (Auto) (0-0.2) K/uL Immature Gran # (Auto) (0.00-0.02) K/uL APTT (21.0-31.0) Seconds PTT Ratio D-Dimer (0-500) ug/L FEU Sodium (136-145) mmol/L Potassium (3.5-5.1) mmol/L Chloride (98-107) mmol/L Carbon Dioxide (21-32) mmol/L Anion Gap (3-11) BUN (6-23) mg/dl Creatinine (0.6-1.4) mg/dl Est Cr Clr Drug Dosing ml/min Est GFR ( Amer) ml/min Est GFR (Non-Af Amer) ml/min BUN/Creatinine Ratio (10-20) Glucose (70-99(Fasting)) mg/dl POC Glucose (70-99) mg/dl Calcium (8.5-10.1) mg/dl Magnesium 1.6 L (1.7-2.4) mg/dl Total Bilirubin (0.2-1.0) mg/dl AST (13-39) U/L ALT (7-52) U/L Alkaline Phosphatase (34-104) U/L Troponin I < 0.03 (0-0.04) ng/ml Total Protein (6.0-8.3) gm/dl Albumin (3.4-5.0) gm/dl Globulin (2.5-4.0) gm/dl Albumin/Globulin Ratio (0.9-2) Triglycerides (0-150) mg/dl Cholesterol (0-200) mg/dl LDL Cholesterol, Calc mg/dl VLDL Cholesterol, Calc (0-30) mg/dl HDL Cholesterol mg/dl Cholesterol/HDL Ratio (0-5) Lipase (11-82) U/L Valproic Acid 49 L (50-100) mcg/ml SARS-CoV-2, RNA, NAAT NEGATIVE (NEGATIVE) 04/18/21 04/18/21 04/18/21 Range/Units 19:17 19:17 19:17 WBC 7.95 (4.8-10.8) K/uL RBC 4.73 (4.7-6.1) M/uL Hgb 14.2 (14.0-18.0) g/dL Hct 42.3 (42-52) % MCV 89.4 (80-100) fL MCH 30.0 (25-34) pg MCHC 33.6 (32-36) g/dL RDW Std Deviation 41.8 (36.4-46.3) fL RDW Coeff of Tamiko 12.7 (11.5-14.5) % Plt Count 185 (130-400) K/uL MPV 9.3 (7.4-10.4) fL Immature Gran % (Auto) 0.5 % Neut % (Auto) 57.9 % Lymph % (Auto) 30.1 % [place] % (Auto) 10.2 % Eos % (Auto) 0.9 % Baso % (Auto) 0.4 % Neut # (Auto) 4.61 (1.4-6.5) K/uL Lymph # (Auto) 2.39 (1.2-3.4) K/uL [place] # (Auto) 0.81 H (0.11-0.59) K/uL Eos # (Auto) 0.07 (0-0.5) K/uL Baso # (Auto) 0.03 (0-0.2) K/uL Immature Gran # (Auto) 0.04 H (0.00-0.02) K/uL APTT (21.0-31.0) Seconds PTT Ratio D-Dimer 290 (0-500) ug/L FEU Sodium 137 (136-145) mmol/L Potassium 4.2 (3.5-5.1) mmol/L Chloride 103 (98-107) mmol/L Carbon Dioxide 24 (21-32) mmol/L Anion Gap 10 (3-11) BUN 13 (6-23) mg/dl Creatinine 0.97 (0.6-1.4) mg/dl Est Cr Clr Drug Dosing 118.3 ml/min Est GFR ( Amer) 104.3 ml/min Est GFR (Non-Af Amer) 90.0 ml/min BUN/Creatinine Ratio 13.4 (10-20) Glucose 115 H (70-99(Fasting)) mg/dl POC Glucose (70-99) mg/dl Calcium 9.5 (8.5-10.1) mg/dl Magnesium (1.7-2.4) mg/dl Total Bilirubin 0.5 (0.2-1.0) mg/dl AST 65 H (13-39) U/L ALT 87 H (7-52) U/L Alkaline Phosphatase 167 H (34-104) U/L Troponin I < 0.03 (0-0.04) ng/ml Total Protein 7.1 (6.0-8.3) gm/dl Albumin 4.2 (3.4-5.0) gm/dl Globulin 2.9 (2.5-4.0) gm/dl Albumin/Globulin Ratio 1.4 (0.9-2) Triglycerides (0-150) mg/dl Cholesterol (0-200) mg/dl LDL Cholesterol, Calc mg/dl VLDL Cholesterol, Calc (0-30) mg/dl HDL Cholesterol mg/dl Cholesterol/HDL Ratio (0-5) Lipase 40 (11-82) U/L Valproic Acid (50-100) mcg/ml SARS-CoV-2, RNA, NAAT (NEGATIVE) Diagnostic Findings Telemetry reviewed - NSR, no arrhythmias Chest xray reviewed on admission: IMPRESSION: No acute process. EKG on admission: Normal sinus rhythm Normal ECG When compared with ECG of 13-APR-2021 11:20, No significant change was found Head ct report reviewed on admission: IMPRESSION: There is no hemorrhage, mass effect, or evidence of acute territorial ischemia by CT criteria. Echo results pending Medications Administered Current Inpatient Medications Aspirin (Aspirin 81 Mg Ectab) 81 mg PO QAM [facility] Stop: 05/19/21 08:59 Last Admin: 04/19/21 10:49 Dose: 81 mg Documented by: Carvedilol (Carvedilol 3.125 Mg Tab) 3.125 mg PO BID [facility] Stop: 05/19/21 08:59 Last Admin: 04/19/21 10:45 Dose: 3.125 mg Documented by: Dextrose (Dextrose 50% 50 Ml Syringe) 25 - 50 ml IV UD PRN; Protocol PRN Reason: Hypoglycemia Protocol Stop: 05/19/21 01:42 Divalproex Sodium (Divalproex Extended Release 500 Mg Tab) 1,500 mg PO QPM [facility] Stop: 05/19/21 01:09 Last Admin: 04/19/21 02:06 Dose: 1,500 mg Documented by: Enoxaparin Sodium (Enoxaparin Inj 40 Mg/0.4 Ml Syr) 40 mg SQ QAM [facility] Stop: 05/19/21 08:59 Last Admin: 04/19/21 10:51 Dose: 40 mg Documented by: Glucagon (Glucagon For Inj 1 Mg Vial) 1 mg SQ UD PRN; Protocol PRN Reason: Hypoglycemia Protocol Stop: 05/19/21 01:42 Glucose (Glucose 10 Tabs/Tube) 4 - 8 tabs PO UD PRN; Protocol PRN Reason: Hypoglycemia Protocol Stop: 05/19/21 01:42 Glucose (Glucose 40% Gel 15 Gm Tube) 15 - 30 gm PO UD PRN; Protocol PRN Reason: Hypoglycemia Protocol Stop: 05/19/21 01:42 Hydroxyzine HCl (Hydroxyzine Hcl 25 Mg Tab) 25 mg PO Q8H PRN PRN Reason: anxiety Stop: 05/19/21 01:42 Promethazine HCl 12.5 mg/ (Sodium Chloride) 50.5 mls @ 202 mls/hr IV Q6H PRN PRN Reason: Nausea And Vomiting Stop: 05/19/21 01:42 Lorazepam (Ativan) 0.5 mg in 1 mls @ 1 mls/min IV Q4H PRN PRN Reason: Anxiety/Agitation Stop: 05/19/21 01:42 Sodium Chloride (Nss 1000ml) 1,000 mls @ 40 mls/hr IV .Q24H [facility] Stop: 05/19/21 01:59 Last Admin: 04/19/21 03:03 Dose: 40 mls/hr Documented by: Insulin Aspart (Insulin Aspart Per Unit) 0 units SC Q6 [facility] Stop: 05/19/21 02:29 Last Admin: 04/19/21 06:15 Dose: 1 units Documented by: Insulin Glargine (Insulin Glargine Solostar 100 Units/Ml 3 Ml Pen) 5 units SC DAILY [facility] Stop: 05/20/21 08:59 Lisinopril (Lisinopril 40 Mg Tab) 40 mg PO DAILY [facility] Stop: 05/19/21 08:59 Last Admin: 04/19/21 10:52 Dose: 40 mg Documented by: Lorazepam (Lorazepam 1 Mg Tab) 1 mg PO DAILY PRN PRN Reason: Anxiety Stop: 05/19/21 01:42 Lurasidone HCl (Lurasidone Hcl 40 Mg Tab) 20 mg PO QPM [facility] Stop: 05/19/21 01:09 Last Admin: 04/19/21 02:07 Dose: 20 mg Documented by: Miscellaneous (Silodosin [Rapaflo]: Order Awaiting Action) 1 ea N/A QS [facility] Stop: 05/19/21 07:59 Last Admin: 04/19/21 10:48 Dose: Not Given Documented by: Miscellaneous (Testosterone Gel: Order Awaiting Action) 1 ea N/A QS [facility] Stop: 05/19/21 07:59 Last Admin: 04/19/21 10:49 Dose: Not Given Documented by: Miscellaneous (Carbohydrates For Hypoglycemia ) 15 - 30 gm PO UD PRN PRN Reason: Hypoglycemia Protocol Stop: 05/19/21 01:42 Morphine Sulfate (Morphine Sulfate Cr 15 Mg Tabcr) 15 mg PO BID [facility] Stop: 05/03/21 08:59 Morphine Sulfate (Morphine Sulfate 4 Mg/Ml 1 Ml Carp\\Vial) 4 mg IV Q6H PRN PRN Reason: Pain Stop: 05/03/21 01:42 Oxycodone HCl (Oxycodone Hcl Ir 5 Mg Tab (Immediate Release)) 10 mg PO Q4H PRN PRN Reason: Pain Stop: 05/03/21 01:16 Last Admin: 04/19/21 10:45 Dose: 10 mg Documented by: Pantoprazole Sodium (Pantoprazole 40 Mg Tab) 40 mg PO BID [facility] Stop: 05/19/21 08:59 Last Admin: 04/19/21 10:45 Dose: 40 mg Documented by:
[2021-04-19] MEDS ORDERED: lisinopril 40 MG TAB PO SCH (09:00)
[2021-04-19] MEDS ORDERED: PANTOprazole 40 MG TAB PO SCH (09:00)
[2021-04-19] MEDS ORDERED: ENOXAPARIN INJ 40 MG/0.4 ML SYR SQ SCH (09:00)
[2021-04-19] MEDS ORDERED: carvediloL 3.125 MG TAB PO SCH (09:00)
[2021-04-19] MEDS ORDERED: MoRPHine SULFATE CR 15 MG TABCR PO SCH (09:00)
[2021-04-19] MEDS ORDERED: ASPIRIN 81 MG ECTAB PO SCH (09:00)
--- NOTE | 2021-04-19 11:47 | Electrocardiogram Report ---
Test Reason : Blood Pressure : / mmHG Vent. Rate : 095 BPM Atrial Rate : 095 BPM P-R Int : 148 ms QRS Dur : 080 ms QT Int : 350 ms P-R-T Axes : 042 021 032 degrees QTc Int : 439 ms Normal sinus rhythm Normal ECG When compared with ECG of 13-APR-2021 11:20, No significant change was found Confirmed by Mario Hsu ([id number]) on 04/19/2021 11:47:20 AM Referred By: REFERRED SELF Confirmed By:Mario Hsu
[2021-04-19] MEDS ORDERED: BUTALBITAL/ACETAMIN/CAFFEINE TAB PO STA (12:51)
--- NOTE | 2021-04-19 17:19 | Discharge Summary ---
Date of Service April 19, 2021 Admission HPI Per Admitting Provider History obtained from patient, family, and records. Medical history significant for hypertension, DM2 diet-controlled, fibromyalgia/chronic pain on narcotic Rx, JENNY on CPAP, anxiety/mood disorder. Last confinement last week for hypertensive urgency. Patient presenting with chest pain and headache complaints. Hydralazine added to metoprolol and lisinopril medications. Hydroxyzine as needed added to anxiety regimen. At home, patient not feeling any better. Still with intermittent achy headaches and substernal pain symptoms. Chest pain sometimes with a burning quality as per patient. Anxiety the same as per patient with usual stressors from job and home. SBP 140-1 80s. Patient stopped taking hydralazine because it made him feel sicker. Trying to be more compliant with CPAP machine. Denies dietary indiscretion. Patient also stopped taking NSAIDs after last visit after being counseled about adverse effects on BP. Patient had episode of chest pain with diaphoreses today. No unusual cough symp toms. No fever, no chills. Patient and wondering if he may be having a heart attack. At the ER, Decadron given for headache symptoms. Medical History as above Surgical History : Foot surgery, cholecystectomy, biceps rupture surgery, shoulder surgeries, vasectomy Family History : Heart disease, breast cancer, ulcerative colitis, brain cancer, Behcet's syndrome Personal/Social history : Non-smoker, no EtOH intake, manager of employee relations Admission Exam Per Admitting Provider GENERAL: Anxious, obese, no respiratory distress SKIN: Normal color, warm HEENT: [place] palpebral conjunctivae, no ptosis, moist buccal mucosa NECK : Supple, short neck, no tenderness CHEST : CTA, no tenderness HEART : RRR, no obvious murmurs ABDOMEN: Some distention, nontender EXTREMITIES : Minimal LE swelling, no LE tenderness, no other conspicuous deformities noted NEUROLOGIC : Coherent, no facial asymmetry, no other gross focality Principal Diagnosis Uncontrolled hypertension Chest pain Discharge Exam GENERAL: Alert and oriented x3. NAD, on RA. HEENT: No pallor, no icterus. Pupils equal, round and reactive to light. Oral mucosa moist. NECK: No JVD, no neck masses. HEART: S1 and S2 heard. Regular rate and rhythm. No murmur, no gallop. RESPIRATORY SYSTEM: Normal AP diameter. No accessory muscle use. No wheezing, no crackles. ABDOMEN: Soft, bowel sounds present, nontender, no distention. CENTRAL NERVOUS SYSTEM: No facial droop. Speech is clear. Obeys simple commands. Moves extremities. EXTREMITIES: No edema, no erythema seen. Discharge Data Allergies Allergy/AdvReac Type Severity Reaction Status Date / Time bupropion Allergy Severe headache, Verified 04/18/21 22:46 change mental status gemfibrozil Allergy Unknown decreased Verified 04/18/21 22:46 kidney function, muscle aches tamsulosin Allergy Unknown HEADACHES Verified 04/18/21 22:46 allopurinol AdvReac Severe Nausea and Verified 04/18/21 22:46 vomiting aripiprazole AdvReac Severe flicking Verified 04/18/21 22:46 tongue Calcium Channel Blocking AdvReac Severe severe Verified 04/18/21 22:46 Agent Dilt swelling Calcium Channel Blocking AdvReac Severe severe Verified 04/18/21 22:46 Agents-Dih swelling colchicine AdvReac Severe Nausea Verified 04/18/21 22:46 febuxostat [From Uloric] AdvReac Severe Nausea Verified 04/18/21 22:46 hydralazine AdvReac Intermediate LEG PAIN, Verified 04/18/21 22:46 NAUSEA/VOMITING, HEADACHE Consultations 04/19/21 01:43 Consult Cardiology Routine Ordered Studies 04/18/21 20:09 CT head/brain wo con Urgent Hospital Course (1) Chest pain: (2) History of uncontrolled hypertension: 50-year-old gentleman with PMH of HTN, DM 2 diet-controlled, fibromyalgia/chronic pain on narcotic treatment, JENNY on CPAP, anxiety/mood disorder on Latuda/divalproex presented to our ED 04/18 with complaint of high blood pressure and chest pain. Patient was recently discharged on adjusted dose of hydralazine which he could not tolerate and had not been taking since 2 days ago [employer]. Troponin x3 were negative and EKG reviewed and showed no acute ST or T changes. Echo was done which showed mild concentric LVH with EF of 60 to 65%. Cardiology evaluated the patient, patient was put on carvedilol and his blood pressure has remained fairly better while in hospital. Carvedilol dose has been increased upon discharge. He is to continue with home dose of lisinopril. He has been intolerant of calcium channel carson including amlodipine due to swelling. He was on hydrochlorothiazide in the past but was stopped due to gout and hyponatremia. He was discharged on increased dose of hydralazine in the last admission which he could not tolerate and he stopped using it. Patient made aware of the medication changes. Patient's LDL were elevated while in hospital for which he needs follow-up with his PCP or cardiology for further management and discussion. As of now lipid-lowering agents has not been added due to complex medical regimen the patient has. So the plan to start 1 drug at a time. Patient is aware that he needs to follow-up with cardiology as an outpatient for outpatient Lexiscan nuclear stress test. Patient is to avoid ibuprofen. Following instructions were communicated to the patient at bedside prior to discharge: Follow-up with your primary care physician within a week time. Follow-up with cardiology as an outpatient for outpatient Lexiscan nuclear stress test. Your LDL cholesterol was found to be elevated at 201 while in hospital, but since your blood pressure medication has been changed this admission, you have not been started on a new lipid-lowering drug at this point in time. As an outpatient, in coordination with your PCP or cardiology, you will need to be started on lipid-lowering agents as discussed at the bedside. Your blood pressure medication has been changed today, carvedilol 6.25 mg twice daily upon discharge along with your home lisinopril 40 mg daily. Your hydralazine has been stopped as you could not tolerate it. Take medications as prescribed. Total Time Total Time Spent Total Time Spent (In Minutes): 35 Discharge Plan Discharge Items Patient Disposition: Home - Self-Care Reason For Visit: CP, HTN Discharge Diagnosis: Uncontrolled hypertension Chest pain Activity: Resume your previous activity Non-emergency contact: Primary Care Provider Call non-emergency contact if: you have any medication questions, your pain is not controlled and your temperature is above 101 Follow-up/Referrals: Mario Estevez MD [Primary Care Provider] - 04/25/21 11:00 am (Date & Time 04/25/2021 11:00 AM Provider Mario Estevez MD Department Family Practice [facility], [place] ) Diet: Heart Healthy and Low Sodium (2gm) Addtl Attending Provider Instructions: Follow-up with your primary care physician within a week time. Follow-up with cardiology as an outpatient for outpatient Lexiscan nuclear stress test. Your LDL cholesterol was found to be elevated at 201 while in hospital, but since your blood pressure medication has been changed this admission, you have not been started on a new lipid-lowering drug at this point in time. As an outpatient, in coordination with your PCP or cardiology, you will need to be started on lipid-lowering agents as discussed at the bedside. Your blood pressure medication has been changed today, carvedilol 6.25 mg twice daily upon discharge along with your home lisinopril 40 mg daily. Your hydralazine has been stopped as you could not tolerate it. Take medications as prescribed. Pending Studies at Discharge: No Stand-Alone Forms: [facility] [employer], Work/School Release, Smoking Cessation Medications and DC Order Prescriptions: New carvedilol 6.25 mg Tablet 6.25 mg PO BID Qty: 60 RF: 0 Continued silodosin [Rapaflo] 8 mg capsule 8 mg PO DAILY Qty: 30 RF: 11 omeprazole 40 mg capsule,delayed release(DR/EC) 40 mg PO QPM RF: 0 divalproex [Depakote ER] 500 mg tablet extended release 24 hr 1,500 mg PO QPM RF: 0 Latuda 20 mg tablet 20 mg PO QPM RF: 0 ondansetron HCl 8 mg tablet 8 mg PO DIRECTED PRN (Reason: Nausea) RF: 0 testosterone 10 mg/0.5 gram /actuation gel in metered-dose pump 10 mg topical QPM RF: 0 naloxone 4 mg/actuation spray,non-aerosol 1 sprays INTNAS ONCE PRN (Reason: opioid overdose) Qty: 2 RF: 0 metformin 500 mg tablet 500 mg PO BID RF: 0 oxycodone 10 mg tablet 10 mg PO Q4H PRN (Reason: Pain) RF: 0 morphine 15 mg tablet extended release 15 mg PO BID RF: 0 lorazepam 1 mg tablet 1 mg PO DAILY PRN (Reason: Anxiety) RF: 0 hydroxyzine HCl 25 mg Tablet 25 mg PO Q8H PRN (Reason: anxiety) 7 Days Qty: 21 RF: 0 lisinopril 40 mg tablet 40 mg PO DAILY 30 Days Qty: 30 RF: 0 Discontinued metoprolol tartrate [Lopressor] 50 mg tablet 50 mg PO BID RF: 0 ibuprofen 200 mg Tablet 800 mg PO DAILY PRN (Reason: Pain) RF: 0 Discharge Orders: Discharge Order (Routine); Ordered 04/19/21 Ordered By: Kavon Quinonez Admission Data Admit Date/Time: 04/19/21 01:17 Attending Provider: Kavon Quinonez Admit Provider: Arnulfo Willard Primary Care Provider: Mario Estevez Other Providers: Daniel De Leon
[2021-04-19] MEDS ORDERED: carvediloL 6.25 MG TAB PO SCH (21:00)
[2021-04-20] MEDS ORDERED: INSULIN GLARGINE SOLOSTAR 100 UNITS/ML 3 ML PEN SC SCH (09:00)
== END 2021-04-19 18:00 | disposition home or self-care (01) ==
LOC: ED 18:48 → EDINP 18:48 → 2S 04-19 14:19